=== PATIENT | female | born 1975 | race Caucasian/White ===

== ENCOUNTER 2021-10-26 13:22 | Outpatient (CLI) | payer BC, SELFPAY ==
--- NOTE | 2021-10-26 10:14 | DI.RAD_ITS ---
Exam(s) XR KNEE LT 4V AP,LAT,HILDA,PAT EXAM: XR KNEE LT 4V AP,LAT,HILDA,PAT CLINICAL HISTORY: L knee pain. TECHNIQUE: 2D digital imaging was performed. Four views. COMPARISON: No exams were available for comparison FINDINGS: BONES: No acute fracture is present. No bony destructive lesion is seen. Minimal spurring medial tib ial plateau. Minimal spurring articular aspect of patella. JOINTS: The knee is normally aligned. No joint effusion is seen. Minimal medial femoral tibial joint space narrowing. SOFT TISSUE: Normal. IMPRESSION: Mild degenerative changes. DATA REPOSITORY: RADIATION DOSE DELIVERED:
== END 2021-10-26 13:23 | disposition home or self-care (01) ==
LOC: DIORS 13:22
PROVIDERS: PCP Physician Assistant Medical; Referring Provider Physician Assistant Medical; Visit Provider Physician Assistant
DX: M25.562 Pain in left knee (principal); M17.12 Unilateral primary osteoarthritis, left knee
CPT/HCPCS: 73564

== ENCOUNTER → 2021-11-09 00:44 | Outpatient (CLI) | payer BC, SELFPAY ==
--- OUTSIDE RECORDS SUMMARY | 2021-11-09 00:46 | XMS_ITS | Encounter Summary ---
:1975 Author Organization [facility] Address [address] [place] [address] Care Team Providers Name Role Phone HORTENSIA Diaz Primary Care Provider Reason for Referral Radiology Services (Routine/Next Available) - Authorization Not Required Specialty Diagnoses / Procedures Referred By Contact Refer red To Contact Diagnoses Arthralgia of both hands Domenica Dyer APRN CV Procedures XR R[facility]ATOID HANDS [address] [facility] [address] [place] [address] Referral ID Status Reason Start Expiration Visits Visits Date Date Requested Authorized [id number] Authorization Not 10/02/2021 1 1 Required Reason for Visit Radiology Services (Routine/Next Available) - Authorization Not Required Specialty Diagnoses / Procedures Referred By Contact Refer red To Contact Diagnoses Arthralgia of both hands Domenica Dyer APRN CV Procedures XR R[facility]UMATOID HANDS [address] [facility] [address] [place] [address] Referral ID Status Reason Start Expiration Visits Visits Date Date Requested Authorized [id number] Authorization Not 10/02/2021 1 1 Required Encounter Details Date Type Department Care Team Description 11/04/2021 Hospital Encounter [facility] - A rthralgia of both [facility] Xray hands [address] [place] [address] Social History Tobacco Use Types Packs/Day Years Used Date Never Smoker Smokeless Tobacco: Never Used Alcohol Use Standard Drinks/Week Comments Yes 1 (1 standard drink = 0.6 oz pure alcoho l) Sex Assigned at Date Recorded Not on file documented as of this encounter Functional Status Functional Status Response Date of Assessment Because of a physical, mental, or emotional condition, No 06/23/2016 does this person have difficulty doing errands alone such as visiting a doctor's office or shopping? Cognitive Status Response Date of Assessment Because of a physical, mental, or emotional condition, No 06/23/2016 does this person have serious difficulty concentrating, remembering, or making decisions? documented as of this encounter Medications at Time of Discharge Medication Sig Dispensed Refills Start Date End Date benzonatate (TESSALON) Take 1-2 caps by 30 capsule 0 021 100 mg mouth three times capsuleIndications: Cough daily as needed for cough cholecalciferol, vitamin Take 50,000 Units by 0 D3, (VITAMIN D3 ORAL) mouth once a week. escitalopram oxalate Take 40 mg by mouth 0 (LEXAPRO) 20 mg tablet daily. guaiFENesin-codeine Take 5-10ml by mouth 100 mL 0 2020 (GUAIFENESIN AC) 100-10 at bedtime as needed mg/5 mL for cough liquidIndications: Cough lisdexamfetamine Take 40 mg by mouth 0 dimesylate daily. (LISDEXAMFETAMINE ORAL) MAGNESIUM ORAL Take by mouth daily. 0 meloxicam (MOBIC) 15 mg Take 1 Tablet by 90 Tablet 2 2021 tabletIndications: mouth daily. Arthralgia of both hands UNABLE TO FIND Med Name: 0 Methylfolate documented as of this encounter Discharge Disposition Disposition Code Departure Means Destination Home or Self Care documented in this encounter Plan of Treatment Upcoming Encounters Date Type Specialty Care Team Description 11/11/2021 Office Visit Rheumatology Frederic Dyer, ASSOCIATE PROFESSOR OF COMMUNICATION [address] [facility] [place] [address] 12/25/2021 Appointment Radiology documented as of this encounter Procedures Procedure Name Priority Date/Time Associated Comments Diagnosis XR RHEUMATOID HANDS Routine 11/04/2021 16:30 Arthralgia of bot h Results for this EDT hands procedure are i n the results section. documented in this encounter Results XR RHEUMATOID HANDS (11/04/2021 16:30 EDT) Anatomical Region Laterality Modality Upper Extremities Computed Radiography Specimen Impressions [facility] - 11/04/2021 17:02 EDT Unremarkable radiographic appearance of the right hand. PROCEDURE INFORMATION: Exam: XR Left Hand Exam date and time: 11/04/2021 4:24 PM Age: 46 years old Clinical indication: Pain; Hand; Bilater al; Additional info: Worsening hand pain and swelling TECHNIQUE: Imaging protocol: XR Left hand. Views: 1 or 2 views. COMPARISON: CR EXP CARE RHEUMATOID BILAT HAND 12/18/19 1:39 PM FINDINGS: Bones/joints: No significant bony or art icular abnormality is identified. Soft tissues: The soft tissues appear gr ossly unremarkable. IMPRESSION: Unremarkable radiographic appearance of the left hand. THIS DOCUMENT HAS BEEN ELECTRONICALLY SI GNED BY TERRELL CONDE MD FOR ANY QUESTIONS OR CONCERNS REGARDING THIS REPORT PLEASE CALL [facility] AT [phone] Narrative [facility] - 11/04/2021 17:02 EDT PROCEDURE INFORMATION: Exam: XR Right Hand Exam date and time: 11/04/2021 4:24 PM Age: 46 years old Clinical indication: Pain; Hand; Bilater al; Additional info: Worsening hand pain and swelling TECHNIQUE: Imaging protocol: XR Right hand. Views: 1 or 2 views. COMPARISON: CR EXP CARE RHEUMATOID BILAT HAND 12/18/19 1:39 PM FINDINGS: Bones/joints: No significant bony or art icular abnormality is identified. Soft tissues: The soft tissues appear gr ossly unremarkable. Procedure Note Terrell Conde MD - 11/04/2021 PROCEDURE INFORMATION: Exam: XR Right Hand Exam date and time: 11/04/2021 4:24 PM Age: 46 years old Clinical indication: Pain; Hand; Bilater al; Additional info: Worsening hand pain and swelling TECHNIQUE: Imaging protocol: XR Right hand. Views: 1 or 2 views. COMPARISON: CR EXP CARE RHEUMATOID BILAT HAND 12/18/19 1:39 PM FINDINGS: Bones/joints: No significant bony or art icular abnormality is identified. Soft tissues: The soft tissues appear gr ossly unremarkable. IMPRESSION Unremarkable radiographic appearance of the right hand. PROCEDURE INFORMATION: Exam: XR Left Hand Exam date and time: 11/04/2021 4:24 PM Age: 46 years old Clinical indication: Pain; Hand; Bilater al; Additional info: Worsening hand pain and swelling TECHNIQUE: Imaging protocol: XR Left hand. Views: 1 or 2 views. COMPARISON: CR EXP CARE RHEUMATOID BILAT HAND 12/18/19 1:39 PM FINDINGS: Bones/joints: No significant bony or art icular abnormality is identified. Soft tissues: The soft tissues appear gr ossly unremarkable. IMPRESSION: Unremarkable radiographic appearance of the left hand. THIS DOCUMENT HAS BEEN ELECTRONICALLY SI GNED BY TERRELL CONDE MD FOR ANY QUESTIONS OR CONCERNS REGARDING THIS REPORT PLEASE CALL [facility] AT [phone] Performing Organization Address City/State/ZIP Code Phon e Number [facility] documented in this encounter Visit Diagnoses Diagnosis Arthralgia of both hands documented in this encounter Care Teams Quality Assurance Relationship Specialty Start Date End Date Rae Diaz PA PCP - General 06/23/16 [address] [place] [address] documented as of this encounter
--- OUTSIDE RECORDS SUMMARY | 2021-11-09 00:46 | XMS_ITS | Encounter Summary ---
:1975 Author Organization [facility] Address [address] [place] [address] Care Team Providers Name Role Phone HORTENSIA Diaz Primary Care Provider Reason for Visit Reason Onset Date Comments Results 03/14/2021 Encounter Details Date Type Department Care Team Description 03/14/2021 Telephone [facility] Mey Yarbrough PA-C Results [facility] - [address] [address] [address] [place] [address] (Wo rk) Social History Tobacco Use Types Packs/Day Years [...] making decisions? documented as of this encounter Miscellaneous Notes Telephone Encounter - Mey Yarbrough PA-C - 03/14/2021 0971 EDT Pt exposed to covid positive individual documented in this encounter Plan of Treatment Upcoming Encounters Date Type Specialty Care Team Description 11/11/2021 Office Visit Rheumatology Frederic Dyer, CHINESE LANGUAGE PROFESSOR [address] [facility] [address] [place] [address] 12/25/2021 Appointment Radiology Scheduled Orders Name Type Priority Associated Diagnoses Order S chedule COVID-19 TESTING Microbiology Routine Exposure to Covid-19 Exp ected: 03/14/2021 Virus (Approximate), Expires: 2021 documented as of this encounter Visit Diagnoses Diagnosis Exposure to COVID-19 virus - Primary documented in this encounter Care Teams Marble Carver Relationship Specialty Start Date End Date Rae Diaz PA PCP - General 06/23/16 [address] [place] [address] documented as of this encounter
--- OUTSIDE RECORDS SUMMARY | 2021-11-09 00:46 | XMS_ITS | Encounter Summary ---
:1975 Author Organization [facility] Address [address] [place] [address] Care Team Providers Name Role Phone HORTENSIA Diaz Primary Care Provider Reason for Visit Reason Onset Date Comments Results 02/02/2020 Encounter Details Date Type Department Care Team Description 02/02/2020 Telephone [facility] Mey Yarbrough PA-C Results [address] [place] [address] [phone] [place] [address] (Wo rk) Social History Tobacco Use Types [...] Telephone Encounter - Mey Yarbrough PA-C - 02/02/2020 1143 EDT labs documented in this encounter Plan of Treatment Upcoming Encounters Date Type Specialty Care Team Description 11/11/2021 Office Visit Rheumatology Frederic Dyer, STEWARD/STEWARDESS DINING ROOM [address] [facility] [address] [place] [address] 12/25/2021 Appointment Radiology Scheduled Orders Name Type Priority Associated Diagnoses Order S chedule CHLAMYDIA/N. Microbiology Routine Laboratory test Ordered: GONORRHOEAE AMPLIFIED RNA documented as of this encounter Visit Diagnoses Diagnosis Laboratory test - Primary Laboratory examination, unspecified documented in this encounter Care Teams Transaction Manager Relationship Specialty Start Date End Date Rae Diaz PA PCP - General 06/23/16 [address] [place] [address] documented as of this encounter
--- OUTSIDE RECORDS SUMMARY | 2021-11-09 00:46 | XMS_ITS | Encounter Summary ---
:1975 Author Organization [facility] Address [address] [place] [address] Care Team Providers Name Role Phone HORTENSIA Diaz Primary Care Provider Reason for Referral Laboratory Services (Routine) - New Request Specialty Diagnoses / Procedures Referred By Contact Refer red To Contact Infectious Disease Diagnoses Cough Ramonita Bateman [facility] Mobile Procedures MISCELLANEOUS TEST, NON BOUBACAR GARCIA Testing [address] [address] [address] [place] [address] Referral ID Status Reason Start Date Expiration Date Visits V isits Requested Authorized [id number] New Request 09/26/2019 1 1 Reason for Visit Reason Onset Date Comments Acute Illness 09/26/2019 Labs Only 09/26/2019 Test appt scheduled for 1:30pm, 09/25 Encounter Details Date Type Department Care Team Description 09/26/2019 Telephone [facility] [place], Dw[place] I ll[facility]; Labs [facility] Ramonita Burnett PA-C Only (Test appt [place] [address] scheduled for 1:30pm, [address] [facility] 09/25) [place] [address] Road [phone] [place] [address] Social History Tobacco Use Types Packs/Day Years Used Date Never Smoker Sex Assigned at Date Recorded Not on [...] this encounter Miscellaneous Notes Telephone Encounter - Ramonita Bateman PA-C - 10/01/2019 1124 EDT Patient called and notified of negative COVID results, she has no further questions. elephone Encounter - Gretchen Hubbard PA-C - 09/30/2019 1707 EDT Pt called looking for results which are not yet back. 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 Testing performed on 09/25, looks like the order was officially signed on 09/28? Is there any way to find out more about the status of her test? elephone Encounter - Rachel Blanco - 09/26/2019 1559 EDT [facility] notified. Telephone Encounter - Bill Redmond - 09/26/2019 0849 EDT C-19 screening recommended by provider. Routed for testing ordering. Vehicle: Stretchr Placement Secretary Color: Dark Blue Cell #: [phone] Spoke to patient and verbally gave instructions for Testing Facility. Patient is instructed to be there at 1:30pm sharp. Patient is aware. elephone Encounter - Ramonita Bateman PA-C - 09/26/2019 0831 EDT Please call patient to schedule COVID testing today. 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 Please call her at [phone] documented in this encounter Plan of Treatment Upcoming Encounters Date Type Specialty Care Team Description 11/11/2021 Office Visit Rheumatology Frederic Dyer , DIRECTOR OF PERSONNEL [address] [facility] [address] [place] [address] 12/25/2021 Appointment Radiology documented as of this encounter Visit Diagnoses Diagnosis Cough - Primary documented in this encounter Orders Lab Orders Without Results Count Last Ordered Date Fir st Ordered Date MISCELLANEOUS TEST, NON HAMLIN 1 09/26/2019 documented in this encounter Care Teams Scroll Machine Operator Relationship Specialty Start Date End Date Rae Diaz PA PCP - General 06/23/16 [address] [place] [address] documented as of this encounter
--- OUTSIDE RECORDS SUMMARY | 2021-11-09 00:46 | XMS_ITS | Encounter Summary ---
:1975 Author Organization [facility] Address [address] [place] [address] Care Team Providers Name Role Phone HORTENSIA Diaz Primary Care Provider Encounter Details Date Type Department Care Team Description 03/14/2021 Results Only [facility] Unknow n, Provider, Lab - [facility] [address] [place] [address] [place] [address] Social History Tobacco Use Types Packs/Day Years [...] making decisions? documented as of this encounter Plan of Treatment Upcoming Encounters Date Type Specialty Care Team Description 11/11/2021 Office Visit Rheumatology Frederic Dyer, PEN TESTER [address] [facility] [address] [place] [address] 12/25/2021 Appointment Radiology documented as of this encounter Procedures Procedure Name Priority Date/Time Associated Diagnosis Comme nts COVID-19 TESTING Routine 03/14/2021 9:28 EDT Res ults for this procedure are i n the results section. documented in this encounter Results COVID-19 TESTING (03/14/2021 9:28 EDT) COVID-19 rt-PCR Not Detected [facility] Result Comment: [facility] This assay is designed to detect the RNA of SARS-CoV-2 using nucleic acid amplification. ??A Not Detected result do es not preclude the possibility of SARS-CoV-2 infection since the adequacy of sample collection and/or low viral burden may result in the presence of viral nucleic acids below th e analytical sensitivity of this test method. ??Test res ults should not be used as the sole basis for treatment or other management decisions and must be used with other clini mara, epidemiological and laboratory data in making the diag nosis. This test has not been FDA cleared or approved. ??This test has been authorized by FDA under an EUA for use by authorized laboratories. ??This test has been authoriz ed only for detection of nucleic acid from 2019-nCoV, not for any other viruses or pathogens. ??This test is only author ized for the duration of the declaration that circumstances exist justifying the authorization of emergency use of in vi tro diagnostic tests for detection and / or diagnosis of 2019-nCoV under section 564(b) (1) of Act, 21 U.S.C 360bbb-3(b)(1) unless the authorization is terminated or revoked sooner. Performed on the [employer] GeneXpert Instrument at [facility] [address] Specimen Performing Organization Address City/State/ZIP Code Phon e Number [facility] [address] [place] [address] documented in this encounter Visit Diagnoses Not on filedocumented in this encounter Care Teams Environmental Services Floor Tech Relationship Specialty Start Date End Date Rae Diaz PA PCP - General 06/23/16 [address] [place] [address] documented as of this encounter
--- OUTSIDE RECORDS SUMMARY | 2021-11-09 00:46 | XMS_ITS | Encounter Summary ---
:1975 Author Organization [facility] Address [address] [place] [address] Care Team Providers Name Role Phone HORTENSIA Diaz Primary Care Provider Reason for Visit Reason Comments New Patient Visit Hand and elbow pain. Hand pa in has been going on for at least 2-3 years. Does not think that h er hands swell. They are painful and she does have some numbness and tingling more recently. Both elbows have been bothering h er for at least the last year. Encounter Details Date Type Department Care Team Description 12/26/[address] [facility] - Anai Dyer of both [facility] Rheumatology CHELSI Metzger hands (Primary Dx) [address] [place] [address] [address] [place] [id number] Social History Tobacco Use Types Packs/Day Years Used Date Never Smoker Smokeless Tobacco: Never Used Alcohol Use Standard Drinks/Week Comments Yes 1 (1 standard drink = 0.6 oz pure alcoho l) Sex Assigned at Date Recorded Not on file documented as of this encounter Last Filed Vital Signs Vital Sign Reading Time Taken Comments Blood Pressure 118/74 12/26/2019 0853 EDT Pulse - - Temperature - - Respiratory Rate - - Oxygen Saturation - - Inhaled Oxygen Concentration - - Weight 72.6 kg (160 lb) 12/26/2019 0853 EDT Height 162.6 cm (5' 4) 12/26/2019 0853 EDT Body Mass Index 27.46 12/26/2019 0853 EDT documented in this encounter Functional Status Functional Status Response [...] making decisions? documented as of this encounter Ordered Prescriptions Prescription Sig Dispensed Refills Start Date End Date diclofenac (VOLTAREN) 75 Take 1 Tab by mouth 40 Tab 1 02/19/2020 mg EC tabletIndications: 2 times daily. Arthralgia of both hands documented in this encounter Progress Notes Domenica Dyer APRN - 12/26/2019 0845 EDT [facility] Rheumatology Chief Complaint Patient presents with ??? New Patient Visit Hand and elbow pain. Hand pain has been going on for at least 2-3 years. Does not think that her hands swell. They are painful and she does have some numbness and tingling more recently. Both elbowshave been bothering her for at least the last year. HPI: 44-year-old woman here today for evaluation of primarily bilateral joint pain of her hands. Endorses that joint stiffenss in both hands comes and goes. Feels as though it progressed during the [id number]. 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 Notes mornings are worse in regards to pain. Also reports some painful numbness and tingling primarily of the long fingers. Other symptoms include elbow soreness both medially and laterally. Symptoms seem to improve throughout the day. Also notes some low back pain lately. Denies leg or foot paresthesias. Intermittent pain of her right great toe in the MTP area. History of left corneal abrasion about 15 years ago which healed and then flared again. Last winter, also noted onset of left hand palmar thickening which was symptomatic with activities such as plank type exercises. Longstanding eczema on her face but no personal or family history of psoriasis. Denies any GI complaints. Has been doing some dietary changes and eliminating sugar and wheat with some general improvement insymptoms. Recent labs on 12/05/19 include CRP, CMP, Lyme, DEVON, RF and CCP all negative or WNL Imaging of hands on 12/18/19 at [facility] and available for review. Current Outpatient Medications: cholecalciferol, vitamin D3, (VITAMIN D3 ORAL) diclofenac (VOLTAREN) 75 mg EC tablet escitalopram oxalate (LEXAPRO) 20 mg tablet lisdexamfetamine (VYVANSE) 70 mg capsule MAGNESIUM ORAL traZODone (DESYREL) 50 mg tablet UNABLE TO FIND No current facility-administered medications for this visit. Allergies include: Patient has no known allergies. Past Medical History: Diagnosis Date ??? ADHD ??? Eczema ??? Hypercholesteremia Family History Problem Relation Age of Onset ??? Blindness Neg Hx ??? Cataract Neg Hx ??? Glaucoma Neg Hx ??? Macular Degeneration Neg Hx Social History: Social History Tobacco Use ??? Smoking status: Never Smoker ??? Smokeless tobacco: Never Used Substance Use Topics ??? Alcohol use: Yes Alcohol/week: 1.0 standard drinks Types: 1 Standard drinks or equivalent per week ??? 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 Single mother of 4 children Review of Systems: 13 point ROS was done with the patient. See scanned document for details. Pertinent positives and negatives are noted in the HPI. Physical Examination: BP 118/74 (BP Cuff Sizes: Adult, regular) Ht 162.6 cm (64) Wt 72.6 kg (160 lb) BMI 27.46 kg/m?? EYES: Conjunctivae not injected,PERRLA ENT: No oral ulcers, dentition is good, moist mucous membranes NECK: Normal extension and lateral rotation without pain. NO lymphadenopathy. CHEST: Clear to auscultation bilaterally. CARDIOVASCULAR: Regular rate and rhythm. No murmur. No peripheral edema. ABDOMEN: Soft, non tender. No hepatosplenomegaly. SKIN: No rash on arms, legs, trunk. No nail pitting. No dilated capillary loops in the nail beds. NEURO: Strength 5/5. Sensation intact to light touch. MUSCULOSKELETAL EXAM: Ambulates with nonantalgic gait. Normal resting posture. Well-preserved cervical spine range of motion flexion extension as well as rotation left and right. Bilateral shoulder motion well-preserved in all planes including internal rotation. Negative Trimble Lee negative Neer impingement signs. Well-preserved strength to manual muscle testing of the large and small muscle groups of the shoulders. Bilateral elbow range of motion well-preserved in flexion extension as well as forearm pronation supination. No appreciable warmth, swelling or erythema about the shoulders. Mild tenderness to palpation medial epicondyle both right and left. Negative Tinel's at the elbows. No appreciable tenosynovitis of the dorsal aspect of the wrists. She is able to pull her fingers to her palms but with some tightness particularly of the MCP and PIP joints. No appreciable erythemaor warmth. She does have some palpable tenosynovitis of the left palmar aspect in line with the long finger. No visible triggering on exam today. Some palpable inflammation with repeated flexion extension of that digit. No nail pitting or changes. No appreciable thoracic tenderness. Some mild lumbosacral tenderness as well as minimal SI joint pain with palpation. Negative straight leg raise for radiculopathy. Bilateral hip motion is well-preserved both while supine and seated in flexion, IR/ER. No instability of the knee joints with ligamentous stress testing. No erythema, warmth or effusions. No tenderness of the subtalar joints bilaterally. Negative squeeze test of the metatarsal heads. Able to demonstrate toe walk and heel walk without difficulty. Labs: Lab Requisition on 12/05/2019 Component Date Value ??? DEVON Interpretation 12/05/2019 Negative Office Visit on 12/05/2019 Component Date Value ??? RHEUMATOID FACTOR SCREEN* 12/05/2019 NEG ? ? Cyclic Citrullinated Pep* 12/05/2019 <15.6 Results Only on 12/03/2019 Component Date Value ??? TEST CANCELLED - [facility] 12/03/2019 SEE NOTE Telephone on 12/01/2019 Component Date Value ? ? C-Reactive Protein 12/05/2019 <5.0 ??? DEVON Interpretation 12/05/2019 Negative ??? Triglyceride 12/05/2019 78 ??? Cholesterol 12/05/2019 190 ??? Chol/HDL Ratio 12/05/2019 3.9 ??? FASTING? - [facility] 12/05/2019 Unknown ??? HDL 12/05/2019 48 ??? LDL CHOLESTEROL - [facility] 12/05/2019 126* ??? Non HDL Cholesterol 12/05/2019 142 ??? ALBUMIN - [facility] 12/05/2019 4.4 ??? ALKALINE PHOSPHATASE - C* 12/05/2019 40 ??? BILIRUBIN TOTAL - [facility] 12/05/2019 0.9 ??? BUN - [facility] 12/05/2019 11 ??? CALCIUM - [facility] 12/05/2019 9.6 ??? Chloride 12/05/2019 100 ??? CO2 Total 12/05/2019 29 ??? CREATININE - [facility] 12/05/2019 0.72 ? ? eGFR 12/05/2019 >60 ??? Anion Gap 12/05/2019 7 ??? GLUCOSE - [facility] 12/05/2019 102* ??? Potassium 12/05/2019 4.0 ??? Sodium 12/05/2019 136 ??? TOTAL PROTEIN - [facility] 12/05/2019 7.0 ??? SGOT/AST - [facility] 12/05/2019 24 ??? SGPT/ALT - [facility] 12/05/2019 15 ??? LYME AB IGG - [facility] 12/05/2019 NEGATIVE ??? Lyme Ab 12/05/2019 NEGATIVE Results Only on 09/26/2019 Component Date Value ??? INFLUENZA A PCR - [facility] 09/26/2019 Negative ??? INFLUENZA B PCR - [facility] 09/26/2019 Negative ??? RSV PCR - [facility] 09/26/2019 Negative ??? COVID-19 - [facility] 09/26/2019 SEE NOTE Results Only on 08/22/2019 Component Date Value ??? Triglyceride 08/22/2019 64 ??? Cholesterol 08/22/2019 227* ??? Chol/HDL Ratio 08/22/2019 3.4 ??? FASTING? - [facility] 08/22/2019 Yes ??? HDL 08/22/2019 65* ??? LDL CHOLESTEROL - [facility] 08/22/2019 149* ??? Non HDL Cholesterol 08/22/2019 162 ??? HIV 1/2 AB, P24 AG - [facility] 08/22/2019 Negative ??? GGT 08/22/2019 14 Results Only on 08/22/2019 Component Date Value ??? ALBUMIN - [facility] 08/22/2019 4.5 ??? ALKALINE PHOSPHATASE - C* 08/22/2019 46 ??? BILIRUBIN TOTAL - [facility] 08/22/2019 0.8 ??? BUN - [facility] 08/22/2019 13 ??? CALCIUM - [facility] 08/22/2019 9.1 ??? Chloride 08/22/2019 101 ??? CO2 Total 08/22/2019 27 ??? Creatinine 08/22/2019 0.61 ? ? eGFR 08/22/2019 >60 ??? Anion Gap 08/22/2019 9 ??? GLUCOSE - [facility] 08/22/2019 81 ??? Potassium 08/22/2019 4.4 ??? Sodium 08/22/2019 137 ??? TOTAL PROTEIN - [facility] 08/22/2019 7.5 ??? SGOT/AST - [facility] 08/22/2019 56* ??? SGPT/ALT - [facility] 08/22/2019 64* Results Only on 07/20/2019 Component Date Value ??? TRICHOMONAS PCR, POCT - * 07/20/2019 NOT DETECTED ??? Human Papillomavirus (HP* 07/20/2019 NEG Diagnosis / Assessment: Problem List Items Addressed This Visit Musculoskeletal Arthralgia - Primary Relevant Medications diclofenac (VOLTAREN) 75 mg EC tablet Recommendations/Evaluation: X-rays of hands independently reviewed with well- preserved joint space.Some early mild changes of the thumb [facility] joints. Serology and labs negative for obvious rheumatologic etiology. Recommend trial of scheduled NSAID for the next 2 to 4 weeks for symptom management. Continue with dietary changes as well. Follow-up in a couple of months for reevaluation and to reassess both her hand and back pain. Activities to tolerance. Encouraged forearm stretches for prevention of epicondylar symptoms. If triggering or pain worsens of the left long finger, can consider corticosteroid injection for symptom management. ABDULKADIR Moore 01/01/2020 8:25 documented in this encounter Plan of Treatment Upcoming Encounters Date Type Specialty Care Team Description 11/11/2021 Office Visit Rheumatology Frederic Dyer APRN [address] [facility] [address] [place] [phone] 12/25/2021 Appointment Radiology documented as of this encounter Visit Diagnoses Diagnosis Arthralgia of both hands - Primary documented in this encounter Historical Medications This list may reflect changes made after this encounter. Medication Sig Dispensed Refills Start Date End Date UNABLE TO FIND Med Name: 0 Methylfolate MAGNESIUM ORAL Take by mouth daily. 0 cholecalciferol, vitamin Take 50,000 Units by 0 D3, (VITAMIN D3 ORAL) mouth once a week. escitalopram oxalate Take 40 mg by mouth 0 (LEXAPRO) 20 mg tablet daily. traZODone (DESYREL) 50 mg Take 50 mg by mouth 0 07/07/2020 tablet as needed for Sleep. lisdexamfetamine Take 60 mg by mouth 0 11/03/2020 (VYVANSE) 70 mg capsule daily. added in this encounter Care Teams Mooner Relationship Specialty Start Date End Date Rae Diaz PA PCP - General 06/23/[address] [place] [id number] documented as of this encounter
--- OUTSIDE RECORDS SUMMARY | 2021-11-09 00:46 | XMS_ITS | Encounter Summary ---
:1975 Author Organization [facility] Address [address] [place] [address] Care Team Providers Name Role Phone HORTENSIA Diaz Primary Care Provider Reason for Visit Reason Onset Date Comments Results 09/30/2019 Encounter Details Date Type Department Care Team Description 09/30/2019 Telephone [facility] Nichole Salazar NP Results [facility] - [address] [place] [address] [address] [place] [address] (Wo rk) Social History Tobacco Use Types [...] this encounter Miscellaneous Notes Telephone Encounter - Nichole Salazar APRN - 09/30/2019 1230 EDT Patient called requesting results for COVID19 testing, I informed patient that this result is not yet available, we will call with results when available. Discussed follow up precautions. documented in this encounter Plan of Treatment Upcoming Encounters Date Type Specialty Care Team Description 11/11/2021 Office Visit Rheumatology Frederic Dyer, VIDEO MACHINES MECHANIC [address] [facility] [address] [place] [address] 12/25/2021 Appointment Radiology documented as of this encounter Visit Diagnoses Not on filedocumented in this encounter Care Teams Cigar Making Machine Supervisor Relationship Specialty Start Date End Date Rae Diaz PA PCP - General 06/23/[address] [place] [id number] documented as of this encounter
--- OUTSIDE RECORDS SUMMARY | 2021-11-09 00:46 | XMS_ITS | Encounter Summary ---
:1975 Author Organization [facility] Address [address] [place] [address] Care Team Providers Name Role Phone HORTENSIA Diaz Primary Care Provider Encounter Details Date Type Department Care Team Description 10/02/2021 Phlebotomy Only [facility], [facility] Arthra lgia of both hands; - [facility] Phlebotomy [facility] - Outpatient Phlebotomy Drawing [address] [place] [address] Social History Tobacco Use Types [...] Description 11/11/2021 Office Visit Rheumatology Frederic Dyer, ASSEMBLER [employer] [address] [facility] [address] [place] [address] 12/25/2021 Appointment Radiology documented as of this encounter Procedures Procedure Name Priority Date/Time Associated Comments Diagnosis CCP ANTIBODIES Routine 10/02/2021 16:27 Arthralgia of both Res ults for this EDT hands procedure are i n the results section. THYROID CASCADE Routine 10/02/2021 16:27 Arthralgia of both Re sults for this EDT hands procedure are in Malaise and fatigue the resu lts section. COMPLETE BLOOD COUNT Routine 10/02/2021 16:27 Arthralgia of rusty th Results for this AND DIFFERENTIAL EDT hands procedure a re in the results section. C REACTIVE PROTEIN Routine 10/02/2021 16:27 Arthralgia of both Results for this EDT hands procedure are i n the results section. COMPREHENSIVE Routine 10/02/2021 16:27 Arthralgia of both Resu lts for this METABOLIC PANEL (CMP) EDT hands proced ure are in the results section. documented in this encounter Results C REACTIVE PROTEIN (10/02/2021 16:27 EDT) Pathologist Sig nature C-Reactive Protein 6.1 <10.0 mg/L [facility] Specimen Blood - Venous blood (substance) Performing Organization Address City/State/ZIP Code Phon e Number [facility] [address] [place] [address] (ABNORMAL) COMPREHENSIVE METABOLIC PANEL (CMP) (10/02/2021 16:27 EDT) Pathologist [facility] Sodium 137 136 - 145 [facility] mmol/L [facility] Potassium 4.3 3.5 - 5.0 [facility] mmol/L [facility] Chloride 103 96 - 110 mmol/L [facility] CO2 Total 22 22 - 32 mmol/L [facility] Glucose 116 (H) 70 - 100 mg/dL [facility] BUN 9 (L) 10 - 26 mg/dL [facility] Creatinine 0.45 (L) 0.52 - 1.04 [facility] mg/dL [facility] eGFR 121 >60 [facility] mL/min/1.73m2 [facility] Total Protein 7.1 6.3 - 8.2 g/dL [facility] Albumin 4.1 3.4 - 4.9 g/dL [facility] Alkaline Phosphatase 64 38 - 126 U/L [facility] AST 31 15 - 46 U/L [facility] ALT 20 <35 U/L [facility] Bilirubin, Total 0.4 <1.4 mg/dL [facility] Calcium 8.5 8.5 - 10.5 [facility] mg/dL [facility] Albumin/Globulin 1.4 1.0 - 2.5 [facility] Ratio [facility] Anion Gap 12 5 - 14 [facility] Specimen Blood - Venous blood (substance) Performing Organization Address City/State/ZIP Code Phon e Number [facility] [address] [place] [address] THYROID CASCADE (10/02/2021 16:27 EDT) Pathologist Sig nature TSH 3.55 0.47 - 4.68 ??IU/mL [facility] C [facility] Specimen Blood - Venous blood (substance) Narrative [facility] - 022 18:09 EDT NOTE: The results of this assay can be falsely lowered due to the consumption of Biotin. Performing Organization Address City/[facility]/ZIP Code Phon e Number [facility] [address] [place] [address] CCP ANTIBODIES (10/02/2021 16:27 EDT) Pathologist Sig nature CCP Antibodies <2.5 <5.0 U/mL [facility] Specimen Blood - Venous blood (substance) Performing Organization Address City/[facility]/ZIP Code Phon e Number [facility] [address] [place] [address] SERVICES COMPLETE BLOOD COUNT AND DIFFERENTIAL (10/02/2021 16:27 EDT) Pathologist Sig nature WBC 6.94 4.00 - 12.40 [facility] K/cmm [facility] RBC 4.49 3.86 - 5.04 [facility] M/cmm [facility] Hemoglobin 12.6 11.6 - 15.2 [facility] gm/dL [facility] HCT 37.1 34.9 - 44.4 % [facility] MCV 83 81 - 98 fl [facility] MCH 28.1 26.7 - 33.3 pg [facility] MCHC 34.0 32.1 - 35.9 [facility] gm/dL [facility] RDW-CV 13.9 <14.7 % [facility] RDW-SD 41.6 <50.4 fl [facility] PLT 256 141 - 377 K/cmm [facility] MPV 10.4 9.5 - 12.7 fl [facility] Neutrophils 65.8 % [facility] Lymphocytes 24.6 % [facility] Monocytes 5.6 % [facility] Eosinophils 2.9 % [facility] Basophils 0.7 % [facility] Immature Grans 0.4 % [facility] Absolute Neutrophils 4.56 2.20 - 8.85 [facility] Absolute Lymphocytes 1.71 1.09 - 3.30 [facility] Absolute Monocytes 0.39 0.10 - 0.80 [facility] Absolute Eosinophils 0.20 0.03 - 0.61 [facility] Absolute Basophils 0.05 0.01 - 0.11 [facility] Absolute Immature 0.03 0.00 - 0.06 [facility] Grans [facility] Type of Differential: Auto [facility] Specimen Blood - Venous blood (substance) Performing Organization Address City/State/ZIP Code Phon e Number [facility] [address] [place] [address] documented in this encounter Visit Diagnoses Diagnosis Arthralgia of both hands Malaise and fatigue Other malaise and fatigue documented in this encounter Care Teams Presentation Designer Relationship Specialty Start Date End Date Rae Diaz PA PCP - General 06/23/16 [address] [place] [address] documented as of this encounter
--- OUTSIDE RECORDS SUMMARY | 2021-11-09 00:46 | XMS_ITS | Encounter Summary ---
:1975 Author Organization [facility] Address [address] [place] [address] Care Team Providers Name Role Phone HORTENSIA Diaz Primary Care Provider Encounter Details Date Type Department Care Team Description 10/04/2018 Historical Results Only [facility] - Rachael Diaz, [facility] Lab - Main [facility] [address] [place] [address] [place], [place] [phone] Social History Tobacco Use Types Packs/Day Years [...] Care Team Description 11/11/2021 Office Visit Rheumatology Ferderic Dyer, KINDERGARTEN AIDE [address] [facility] [address] [place] [address] 12/25/2021 Appointment Radiology documented as of this encounter Procedures Procedure Name Priority Date/Time Associated Diagnosis Comme nts LIPID PANEL POC - Routine 10/04/2018 13:51 Result s for this [facility] EDT procedure are i n the results section. documented in this encounter Results (ABNORMAL) LIPID PANEL POC - [facility] (10/04/2018 13:51 EDT) Pathologist Sig nature Triglyceride 62 0.00 - 150.00 MG/DL [facility] Cholesterol 223 (H) 0.00 - 200.00 MG/DL [facility] HDL 59 40.00 - 60.00 MG/DL [facility] Specimen Performing Organization Address City/State/ZIP Code Phon e Number [facility] [address] [place] [address] [facility] documented in this encounter Visit Diagnoses Not on filedocumented in this encounter Care Teams Wholesale Account Manager Relationship Specialty Start Date End Date Rae Diaz PA PCP - General 06/23/16 [address] [place] [address] documented as of this encounter
--- OUTSIDE RECORDS SUMMARY | 2021-11-09 00:46 | XMS_ITS | Encounter Summary ---
:1975 Author Organization [facility] Address [address] [place] [address] Care Team Providers Name Role Phone HORTENSIA Diaz Primary Care Provider Encounter Details Date Type Department Care Team Description 09/26/2019 Results Only [facility] - [facility] Mel Stockton MD Infectious Disease [address] [facility] [address] [facility] [address] [place] [address] [place] [address] (Wo rk) Social History Tobacco Use Types [...] Description 11/11/2021 Office Visit Rheumatology Frederic Dyer, DATA PROCESSING AUDITOR [address] [facility] [address] [place] [address] 12/25/2021 Appointment Radiology documented as of this encounter Procedures Procedure Name Priority Date/Time Associated Diagnosis Comme nts COVID-19 Routine 09/26/2019 13:20 Results for this EDT procedure are i n the results section. INFLUENZA A B RSV - Routine 09/26/2019 13:20 Resu lts for this [facility] EDT procedure are i n the results section. documented in this encounter Results COVID-19 (09/26/2019 13:20 EDT) COVID-19 - [facility] SEE NOTE [facility] Comment: MED CENTER LAB TESTING PERFORMED AT [facility]; Analyte ? Result 2019-nCoV ? Not detected Negative results do not preclude 2019-nCoV infection a nd should not be used as the sole basis for treatment or other patient management decisions. ??Negative results must be combined with clinical observations, patient history a nd epidemlogical information. NASOPHARYNGEAL SWAB Specimen Performing Organization Address City/[facility] Code Phon e Number [facility] [address] [place] [address] [facility] INFLUENZA A B RSV - [facility] (09/26/2019 13:20 EDT) Pathologist Sig nature INFLUENZA A PCR - [facility] Negative [facility] INFLUENZA B PCR - [facility] Negative [facility] RSV PCR [facility] Negative [facility] Specimen Performing Organization Address City/[facility] Phon e Number [facility] [address] [place] [address] [facility] documented in this encounter Visit Diagnoses Not on filedocumented in this encounter Care Teams Electronic Engineering Technician Relationship Specialty Start Date End Date Rae Diaz PA PCP - General 06/23/16 [address] [place] [address] documented as of this encounter
--- OUTSIDE RECORDS SUMMARY | 2021-11-09 00:46 | XMS_ITS | Encounter Summary ---
:1975 Author Organization [facility] Address [address] [place] [address] Care Team Providers Name Role Phone HORTENSIA Diaz Primary Care Provider Reason for Referral PT/OT/ST (Routine) - Closed Specialty Diagnoses / Procedures Referred By Contact Refer red To Contact Diagnoses Bilateral carpal tunnel syndrome Arthralgia of both hands Domenica Dyer APRN [facility] [address] [facility] [address] [facility] [place] [address] [place] [address] Phone: Fax: Referral ID Status Reason Start Date Expiration Date Visits V isits Requested Authorized [id number] Closed Specialty 11/03/2020 1 1 Services Required Question Answer Reason for Request: Fabricate bilateral carpal t unnel splints Comments Off the shelf carpal tunnel splints not fitting well Reason for Visit Reason Comments Follow-up Pt reports ongoing hand pain .No difference from last time.Pain level varies form day to day. Encounter Details Date Type Department Care Team Description 11/03/2020 Office Visit [facility] [place] carpal tunnel syndrome (Primary Dx); [facility] Rheumatology CHELSI Metzger Arthralgia of both hands [address] [place] [address] [address] [place] [address] Social History Tobacco Use Types Packs/Day Years Used Date Never Smoker Smokeless Tobacco: Never Used Alcohol Use Standard Drinks/Week Comments Yes 1 (1 standard drink = 0.6 oz pure alcoho l) Sex Assigned at Date Recorded Not on file documented as of this encounter Last Filed Vital Signs Vital Sign Reading Time Taken Comments Blood Pressure 136/86 11/03/2020 0829 EDT Pulse - - Temperature 36.4 ??C (97.5 ??F) 11/03/2020 0829 EDT Respiratory Rate - - Oxygen Saturation - - Inhaled Oxygen Concentration - - Weight 77.1 kg (170 lb) 11/03/2020 0829 EDT Height - - Body Mass Index 29.18 02/19/2020 1002 EDT documented in this encounter Functional Status [...] making decisions? documented as of this encounter Patient Instructions Patient InstructionsSylvDomenica rivero APRN - 11/03/2020 8:15 EDT Schedule carpal tunnel splint fabrication Trial of wearing splints routinely for 2-3 weeks nightly Meloxicam daily as needed - refill sent to [facility] pharmacy documented in this encounter Ordered Prescriptions Prescription Sig Dispensed Refills Start Date End Date meloxicam (MOBIC) 15 mg Take 1 Tab by mouth 90 Tab 2 10/02/2021 tabletIndications: daily. Arthralgia of both hands documented in this encounter Progress Notes Domenica Dyer APRN - 11/03/2020 0815 [facility]T [facility] Rheumatology Chief Complaint Patient presents with ??? Follow-up Pt reports ongoing hand pain.No difference from last time.Pain level varies form day to day. HPI: Known patient initially evaluated on 12/26/19 for??bilateral joint pain of her hands. ?? Also reports some painful numbness and tingling primarily of the long fingers. History of??left??corneal abrasion about 15 years ago which healed and then flared again. Longstanding eczema on her face but no personal or family history of psoriasis. ?? No GI complaints. ?? Previous treatment with oral diclofenac with only initial response/improvement x 3 days. Took low dose prednisone with some modest improvement in hand pain during use. No lasting effects. ?? Labs on 12/05/19 include CRP, CMP, Lyme, DEVON, RF and CCP all negative or WNL ?? Imaging of hands on 12/18/19 at [facility] and available for review. ?? INTERVAL HISTORY: Took meloxicam with noted comparable improvement to diclofenac. Ran out of that prescription and is back to taking diclofenac in the mornings. Hands are stiff and tight mostly in the mornings. Symptoms seem erratic. Continues to have symptoms of numbness and tingling primarily of the thumb side of her hand but occasionally involving the ring and long finger. Has some carpal tunnel splints but they do not really fit properly and is not using them regularly. Denies any painful triggering of any digits. Current Outpatient Medications Medication ??? cholecalciferol, vitamin D3, (VITAMIN D3 ORAL) ??? escitalopram oxalate (LEXAPRO) 20 mg tablet ??? lisdexamfetamine (VYVANSE) 70 mg capsule ??? MAGNESIUM ORAL ??? meloxicam (MOBIC) 15 mg tablet ??? UNABLE TO FIND No current facility-administered medications [...] week ??? Drug use: Not on file Review of Systems: Review of Systems Constitutional: Positive for malaise/fatigue. Respiratory: Negative for shortness of breath. Cardiovascular: Negative for palpitations. Gastrointestinal: Negative for nausea and vomiting. Musculoskeletal: Positive for joint pain. Skin: Positive for rash. Physical Examination: Temp 36.4 ??C (97.5 ??F) Wt 77.1 kg (170 lb) BMI 29.18 kg/m?? EYES: Conjunctivae not injected ENT:??Oral and nasal mucosa not examined. ??Protective mask in place secondary to COVID-19 precautions. NECK:??Supple. ??Normal resting posture. ?? CHEST:??Unlabored breathing CARDIOVASCULAR: No peripheral edema. SKIN: No rash on??exposed areas of??arms.?No??fingernail pitting. ?? MUSCULOSKELETAL EXAM:??Focused exam of hands and wrists with some mild fullness about the right palmar aspect. ??Left ring finger with palpable triggering but no visible or painful triggering of that digit. No appreciable atrophy of the thenar, hypothenar intrinsic musculature bilaterally. Generalized fullness of the digits but no dactylitis or synovitis overlying the MCP joints dorsally. Labs: No visits with results within 3 Month(s) from this visit. Latest known visit with results is: Results Only on 07/18/2020 Component Date Value ??? TSH 07/18/2020 1.38 Diagnosis / Assessment: Problem List Items Addressed This Visit Musculoskeletal Arthralgia Relevant Medications meloxicam (MOBIC) 15 mg tablet Other Relevant Orders AMB CONS/FOLLOW UP OCCUPATIONAL THERAPY Other Visit Diagnoses Bilateral carpal tunnel syndrome - Primary Relevant Orders AMB CONS/FOLLOW UP OCCUPATIONAL THERAPY Persistent hand pain with modest response to scheduled NSAID Symptoms of probable median nerve irritation, bilaterally Recommendations/Evaluation: Recommend OT referral for fabrication of custom fit carpal tunnel splints. Refill of meloxicam provided for 90-day supply. Discussed other treatment options including a different NSAID versus trial of colchicine versus hydroxychloroquine for prednisone responsive hand pain. Patient would like to trial some dietary changes including decreasing sugar and other lifestyle changes for the next 3 months. Follow-up at that time for reevaluation Domenica Dyer APRN 11/03/2020 8:31 documented in this encounter Plan of Treatment Upcoming Encounters Date Type Specialty Care Team Description 11/11/2021 Office Visit Rheumatology Frederic Dyer APRN [address] [facility] [address] [place] [address] 12/25/2021 Appointment Radiology Scheduled Referrals Name Type Priority Associated Order Schedule Diagnoses AMB CONS/FOLLOW UP Outpatient Referral Routine Bilateral carpa l Ordered: OCCUPATIONAL THERAPY tunnel synd dewey 11/03/2020 Arthralgia of both hands documented as of this encounter Visit Diagnoses Diagnosis Bilateral carpal tunnel syndrome - Prima ry Carpal tunnel syndrome Arthralgia of both hands documented in this encounter Discontinued Medications Medication Sig Discontinue Reason Start Date End Date lisdexamfetamine (VYVANSE) Take 60 mg by Alternate therapy 11/03/2020 70 mg capsule mouth daily. meloxicam (MOBIC) 15 mg Take 1 Tab by 08/04/2020 tabletIndications: mouth daily. Arthralgia of both hands documented as of this encounter Historical Medications This list may reflect changes made after this encounter. Medication Sig Dispensed Refills Start Date End Date lisdexamfetamine dimesylate Take 40 mg by 0 (LISDEXAMFETAMINE ORAL) mouth daily. added in this encounter Care Teams A And P Mechanic Relationship Specialty Start Date End Date Rae Diaz PA PCP - General 06/23/16 [address] [place] [address] documented as of this encounter
--- OUTSIDE RECORDS SUMMARY | 2021-11-09 00:46 | XMS_ITS | Encounter Summary ---
:1975 Author Organization [facility] Address [address] [place] [address] Care Team Providers Name Role Phone HORTENSIA Diaz Primary Care Provider Encounter Details Date Type Department Care Team Description 08/22/2019 Results Only [facility] Rae Diaz PA Lab - Main [place] [address] [facility] [address] [place] [address] [place] [address] [phone] Social History Tobacco Use Types Packs/Day Years [...] Description 11/11/2021 Office Visit Rheumatology Frederic Dyer ah, HARP REPAIRER [address] [facility] [place] [address] 12/25/2021 Appointment Radiology documented as of this encounter Procedures Procedure Name Priority Date/Time Associated Diagnosis Comme nts HIV 1/2 AB, P24 AG Routine 08/22/2019 10:40 Resul ts for [facility] EST procedure are i n the results section. GGT Routine 08/22/2019 10:40 Results for this EST procedure are i n the results section. LIPID PROFILE Routine 08/22/2019 10:40 Results fo r this (INCLUDES EST procedure are i n CHOLESTEROL, the results TRIGLYCERIDES, HDL, section. LDL) documented in this encounter Results GGT (08/22/2019 10:40 EST) Pathologist Sig nature GGT 14 <44 U/L [facility] AB Specimen Narrative [facility] - 020 15:15 EST Does PT Have a Latex Allergy? NO AOT: 08/23/19 1504: GGT Performing Organization Address City/[facility]/ZIP Code Phon e Number [facility] [address] [facility], [address] LAB HIV 1/2 AB, P24 AG - [facility] (08/22/2019 10:40 EST) Pathologist Sig nature HIV 1/2 AB, P24 AG - Negative Negative [facility] Specimen Narrative [facility] - 020 12:33 EST Does PT Have a Latex Allergy? NO Performing Organization Address City/[facility]/ZIP Code Phon e Number [facility] [address] LAB (ABNORMAL) LIPID PROFILE (INCLUDES CHOLESTEROL, TRIGLYCERIDES, HDL, LDL) (08/22/2019 10:40 EST) Triglyceride 64 <150 mg/dL [facility] Comment: [facility] Adult: Normal: ?<150 mg/dl ? Borderline High: 150-199 mg/dl ? High: ?200-499 mg/dl ? Very High: >[id number] Cholesterol 227 (H) <200 mg/dL [facility] Comment: [facility] Acceptable: ??<200 Borderline: ??200-239 High: ?> or = 240 Chol/HDL Ratio 3.4 0 - 4.5 [facility] Comment: [facility] DESIRABLE RATIO IS LESS THAN 4.1 PATIENTS ARE CONSIDERED AT RISK: WOMEN RATIO >5 MEN RATIO >6 FASTING? - [facility] Yes [facility] HDL 65 (H) 40 - 60 mg/dL [facility] Comment: [facility] ?? Reference Range Low: ? < 40 ??mg/dL Normal: ??40-60 mg/dL High: ?>= 60 mg/dL LDL CHOLESTEROL - 149 (H) 60 - 100 [facility] mg/dL [facility] Non HDL Cholesterol 162 mg/dl [facility] Comment: [facility] Desirable: ?Less than 130 Borderline High: ??130-159 High: ? 160-189 Very High: ?Greater than or equal to 190 Specimen Narrative [facility] - 020 15:15 EST Does PT Have a Latex Allergy? NO AOT: 08/23/19 1504: GGT Performing Organization Address City/State/[facility] Code Phon e Number [facility] [address] [place] [address] [facility] documented in this encounter Visit Diagnoses Not on filedocumented in this encounter Care Teams Door Liner Helper Relationship Specialty Start Date End Date Rae Diaz PA PCP - General 06/23/16 [address] [place] [address] documented as of this encounter
--- OUTSIDE RECORDS SUMMARY | 2021-11-09 00:46 | XMS_ITS | Clinical Summary ---
:1975 Author Organization [facility] Address [address] [place] [address] Care Team Providers Name Role Phone HORTENSIA Diaz Primary Care Provider Allergies No known active allergies Medications Medication Sig Dispensed Refills Start Date End Date Status escitalopram oxalate Take 40 mg by 0 Active (LEXAPRO) 20 mg tablet mouth daily. cholecalciferol, Take 50,000 Units 0 Active vitamin D3, (VITAMIN by mouth once a D3 ORAL) week. MAGNESIUM ORAL Take by mouth 0 A ctive daily. UNABLE TO FIND Med Name: 0 Activ e Methylfolate lisdexamfetamine Take 40 mg by 0 Active dimesylate mouth daily. (LISDEXAMFETAMINE ORAL) benzonatate (TESSALON) Take 1-2 caps by 30 capsule 0 Active 100 mg mouth three times capsuleIndications: daily as needed Cough for cough Additional Information Patient not taking. Reported on 10/02/2021 guaiFENesin-codeine (GUAIFENESIN Take 5-10ml by mouth 100 mL 0 04/24/2021 Active AC) 100-10 mg/5 mL at bedtime as needed liquidIndications: Cough for cough Additional Information Patient not taking. Reported on 10/02/2021 meloxicam (MOBIC) 15 mg Take 1 Tablet by 90 Tablet 2 2 Active tabletIndications: Arthralgia of mouth daily. both hands Active Problems Problem Noted Date Arthralgia 12/01/2019 Encounters Date Type Specialty Care Team Description 11/04/2021 Hospital Encounter Radiology Arthralgi a of both hands 10/02/2021 Phlebotomy Only Clinical Laboratory Lab, [facility] [place] Arthr algia of both hands; Phlebotomy Malaise and fat igue 10/02/2021 Office Visit Rheumatology Andreas Dyer and fat kezia (Primary Dx); CHELSI Metzger Arthralgia of both hands; Trigger middle finger of right hand from Last 3 Months Medical History Medical History Date Comments Hypercholesteremia Adhd Eczema Family History Medical History Relation Name Comments Blindness Neg Hx Cataract Neg Hx Glaucoma Neg Hx Macular Degeneration Neg Hx Social History Tobacco Use Types Packs/Day Years Used Date Never Smoker Smokeless Tobacco: Never Used Alcohol Use Standard Drinks/Week Comments Yes 1 (1 standard drink = 0.6 oz pure alcoho l) Sex Assigned at Date Recorded Not on file Last Filed Vital Signs Vital Sign Reading Time Taken Comments Blood Pressure 113/76 10/02/2021 1529 EDT Pulse 84 10/02/2021 1529 EDT Temperature 36.4 ??C (97.5 ??F) 10/02/2021 1529 EDT Respiratory Rate - - Oxygen Saturation - - Inhaled Oxygen Concentration - - Weight 100.2 kg (221 lb) 10/02/2021 1529 EDT Height 162.6 cm (5' 4) 10/02/2021 1529 EDT Body Mass Index 37.93 10/02/2021 1529 EDT Plan of Treatment Upcoming Encounters Date Type Specialty Care Team Description 11/11/2021 Office Visit Rheumatology Frederic Dyer APRN [address] [facility] [address] [phone] 12/25/2021 Appointment Radiology Health Maintenance Due Date Last Done Comments Hepatitis C Screen 1975 COVID-19 Vaccine (1) 1981 Procedures Procedure Name Priority Date/Time Associated Comments Diagnosis XR RHEUMATOID HANDS Routine 11/04/2021 16:30 Arthralgia of bot h Results for this EDT hands procedure are i n the results section. C REACTIVE PROTEIN Routine 10/02/2021 16:27 Arthralgia of both Results for this EDT hands procedure are i n the results section. COMPREHENSIVE Routine 10/02/2021 16:27 Arthralgia of both Resu lts for this METABOLIC PANEL (CMP) EDT hands proced ure are in the results section. THYROID CASCADE Routine 10/02/2021 16:27 Arthralgia of both Re sults for this EDT hands procedure are in Malaise and fatigue the resu lts section. CCP ANTIBODIES Routine 10/02/2021 16:27 Arthralgia of both Res ults for this EDT hands procedure are i n the results section. COMPLETE BLOOD COUNT Routine 10/02/2021 16:27 Arthralgia of rusty th Results for this AND DIFFERENTIAL EDT hands procedure a re in the results section. from Last 3 Months Results XR RHEUMATOID HANDS (11/04/2021 16:30 EDT) Anatomical Region Laterality Modality Upper Extremities Computed Radiography Specimen Impressions [facility] - 11/04/2021 17:02 EDT [...] REGARDING THIS REPORT PLEASE CALL [facility] AT [phone] Narrative [facility] [place] - 11/04/2021 17:02 EDT PROCEDURE INFORMATION: Exam: [...] REGARDING THIS REPORT PLEASE CALL [facility] AT [phone] Performing Organization Address City/State/ZIP Code Phon e Number [facility] CCP ANTIBODIES (10/02/2021 16:27 EDT) Pathologist Sig nature CCP Antibodies <2.5 <5.0 U/mL [facility] Specimen Blood - Venous blood (substance) Performing Organization Address City/State/ZIP Code Phon e Number [facility] [address] [place] [address] SERVICES THYROID CASCADE (10/02/2021 16:27 EDT) Pathologist Sig nature TSH 3.55 0.47 - 4.68 ??IU/mL [facility] Specimen Blood - Venous blood (substance) Narrative [facility] - 022 18:09 EDT NOTE: The results of this assay can be falsely lowered due to the consumption of Biotin. Performing Organization Address City/State/ZIP Code Phon e Number [facility] [address] [place] [address] COMPLETE BLOOD COUNT AND DIFFERENTIAL (10/02/2021 16:27 EDT) Pathologist Sig nature WBC 6.94 4.00 - 12.40 [facility] RBC 4.49 3.86 - 5.04 [facility] Hemoglobin 12.6 11.6 - 15.2 [facility] gm/dL [facility] HCT 37.1 34.9 - 44.4 % [facility] MCV 83 81 - 98 fl [facility] MCH 28.1 26.7 - 33.3 pg [facility] MCHC 34.0 32.1 - 35.9 [facility] gm/dL [facility] RDW-CV 13.9 <14.7 % [facility] RDW-SD 41.6 <50.4 fl [facility] PLT 256 141 - 377 K/cmm [facility] MPV 10.4 9.5 - 12.7 fl [facility] Neutrophils 65.8 % [facility] Lymphocytes 24.6 % [facility] Monocytes 5.6 % [facility] Eosinophils 2.9 % [facility] Basophils 0.7 % [facility] Immature Grans 0.4 % [facility] Absolute Neutrophils 4.56 2.20 - 8.85 [facility] Absolute Lymphocytes 1.71 1.09 - 3.30 [facility] Absolute Monocytes 0.39 0.10 - 0.80 [facility] Absolute Eosinophils 0.20 0.03 - 0.61 [facility] Absolute Basophils 0.05 0.01 - 0.11 [facility] Absolute Immature 0.03 0.00 - 0.06 [facility] Grans [facility] Type of Differential: Auto [facility] Specimen Blood - Venous blood (substance) Performing Organization Address City/State/ZIP Code Phon e Number [facility] [address] [place] [address] C REACTIVE PROTEIN (10/02/2021 16:27 EDT) Pathologist Sig nature C-Reactive Protein 6.1 <10.0 mg/L [facility] Specimen Blood - Venous blood (substance) Performing Organization Address City/[facility] Code Phon e Number [facility] [address] [place] [address] (ABNORMAL) COMPREHENSIVE METABOLIC PANEL (CMP) (10/02/2021 16:27 EDT) Pathologist Sig nature Sodium 137 136 - 145 [facility] mmol/L [facility] Potassium 4.3 3.5 - 5.0 [facility] mmol/L [facility] Chloride 103 96 - 110 mmol/L [facility] CO2 Total 22 22 - 32 mmol/L [facility] Glucose 116 (H) 70 - 100 mg/dL [facility] BUN 9 (L) 10 - 26 mg/dL [facility] Creatinine 0.45 (L) 0.52 - 1.04 [facility] mg/dL [facility] eGFR 121 >60 [facility] mL/min/1.73m2 [facility] Total Protein 7.1 6.3 - 8.2 g/dL [facility] Albumin 4.1 3.4 - 4.9 g/dL [facility] Alkaline Phosphatase 64 38 - 126 U/L [facility] AST 31 15 - 46 U/L [facility] ALT 20 <35 U/L [facility] Bilirubin, Total 0.4 <1.4 mg/dL [facility] Calcium 8.5 8.5 - 10.5 [facility] mg/dL [facility] Albumin/Globulin 1.4 1.0 - 2.5 [facility] Anion Gap 12 5 - 14 [facility] Specimen Blood - Venous blood (substance) Performing Organization Address City/[facility]/ZIP Code Phon e Number [facility] [address] [place] [address] from Last 3 Months Insurance Payer Benefit Plan / Subscriber ID Effective Dates Phone Addre ss Type Group BC[place] P [place] [facility] [id number] 2019-Present [address] [facility] [place] [address] Nora Boogie Personal/Family Self 1975 [address] (Home) [place] [address] Nora Boogie Personal/Family Self 1975 [address] (Home) [facility] [place] [address] Nora Boogie Personal/Family Self 1975 [address] (Home) [place] [address] Nora Boogie Personal/Family Self 1975 [address] (Home) [place] [address] Nora Boogie Personal/Family Self 1975 [address] (Home) [place] [address] Nora Boogie Personal/Family Self 1975 [address] (Home) [facility] [place] [address] Nora Boogie Personal/Family Self 1975 [address] (Home) [place] [address] Care Teams Sugarcane Research Technician Relationship Specialty Start Date End Date Rae Diaz PA PCP - General 06/23/[address] [place] [id number]
--- OUTSIDE RECORDS SUMMARY | 2021-11-09 00:46 | XMS_ITS | Encounter Summary ---
:1975 Author Organization [facility] Address [address] [place] [address] Care Team Providers Name Role Phone HORTENSIA Diaz Primary Care Provider Reason for Visit Reason Comments Follow-up Pt reports hand pain.Sugar i s a trigger.Right worse than left.Pain worse than at last visit.Worse in AM and then improves. Encounter Details Date Type Department Care Team Description 07/07/2020 Office Visit [facility], Arthral belinda of both hands (Primary Dx); [facility] Rheumatology CHELSI Metzger Malaise and fatigue [address] [place] [address] [address] [place] [address] Social History Tobacco Use Types Packs/Day Years Used Date Never Smoker Smokeless Tobacco: Never Used Alcohol Use Standard Drinks/Week Comments Yes 1 (1 standard drink = 0.6 oz pure alcoho l) Sex Assigned at Date Recorded Not on file COVID-19 Exposure Response Date Recorded In the last month, have you been in contact with No / Unsure 07/07/2020 8:20 EST someone who was confirmed or suspected to have Coronavirus / COVID-19? documented as of this encounter Last Filed Vital Signs Vital Sign Reading Time Taken Comments Blood Pressure 136/86 07/07/2020 0822 EST Pulse - - Temperature 35.9 ??C (96.7 ??F) 07/07/2020 0822 EST Respiratory Rate - - Oxygen Saturation - - Inhaled Oxygen Concentration - - Weight 77.1 kg (170 lb) 07/07/2020 0822 EST Height - - Body Mass Index 29.18 [...] Sig Dispensed Refills Start Date End Date predniSONE (DELTASONE) 5 Take 3 Tabs by 22 Tab 1 020 07/18/2020 mg tabletIndications: mouth daily for 4 Arthralgia of both hands days, THEN 2 Tabs daily for 3 days, THEN 1 Tab daily for 4 days. documented in this encounter Progress Notes Domenica Dyer APRN - 07/07/2020 0815 EST [facility] Rheumatology Chief Complaint Patient presents with ??? Follow-up Pt reports hand pain.Sugar is a trigger.Right worse than left.Pain worse than at last visit.Worse in AM and then improves. HPI: 44-year-old woman initially evaluated on 12/26/19 for bilateral joint pain of her hands. 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 ??Notes mornings are worse in regards to pain. ??Also reports some painful numbness and tingling primarily of the long fingers. Other symptoms include elbow soreness both medially and laterally. ??Symptoms seem to improve throughout the day. History of??left??corneal abrasion about 15 years ago which healed and then flared again. Last winter, also noted onset of left hand palmar thickening which was symptomatic with activities such as plank type exercises. Longstanding eczema on her face but no personal or family history of psoriasis. ? Labs on 12/05/19 include CRP, CMP, Lyme, DEVON, RF and CCP all negative or WNL Imaging of hands on 12/18/19 at [facility] and available for review. ?? INTERVAL HISTORY: Past modest improvement of symptoms with oral diclofenac at onset of use. Diet has included more sugar. Hand pain worse, R > L. Ongoing paresthesias to all of her fingertips. Also has some ulnar-sided symptoms. Morning stiffness persists. Additionally, her shoulders have been sore with remote injury to the left shoulder and physical therapy several years ago. No change to facial skin eczema. Did not take test dose of oral prednisone. Current Outpatient Medications Medication ??? cholecalciferol, vitamin D3, (VITAMIN D3 ORAL) ??? escitalopram oxalate (LEXAPRO) 20 mg tablet ??? lisdexamfetamine (VYVANSE) 70 mg capsule ??? MAGNESIUM ORAL ??? 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 Negative for fever. Respiratory: Negative for cough and shortness of breath. Cardiovascular: Negative for chest pain. Gastrointestinal: Negative for nausea and vomiting. Musculoskeletal: Positive for joint pain. Skin: Positive for rash. Physical Examination: BP 136/86 Temp 35.9 ??C (96.7 ??F) Wt 77.1 kg (170 lb) BMI 29.18 kg/m?? EYES: Conjunctivae not injected ENT: Oral and nasal mucosa not examined. Protective mask in place secondary to COVID-19 precautions. NECK: Supple. Normal resting posture. CHEST: Unlabored breathing CARDIOVASCULAR: No peripheral edema. SKIN: No rash on exposed areas of arms. No fingernail pitting. No dilated capillary loops in the nail beds. MUSCULOSKELETAL EXAM: Focused exam of hands and wrists with some mild fullness about the right palmar aspect. Some mild tenderness in line with the long finger on the right. Some thickening appreciated on palpation. No active or visible triggering with repeated flexion extension. Able to pull all of her fingertips to her palm bilaterally. No erythema, warmth or synovitis appreciated of the dorsal aspect of the MCP joints. Labs: No visits with results within 3 Month(s) from this visit. Latest known visit with results is: Results Only on 02/02/2020 Component Date Value ??? CHLAMYDIA PCR - [facility] 02/02/2020 NOT DETECTED ??? GONORRHEA PCR - [facility] 02/02/2020 NOT DETECTED ??? SOURCE - [facility] 02/02/2020 VAGINAL ??? 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 Low-dose short course prescribed. Also ordered thyroid cascade as she states her mom relate history of both she and her maternal grandmother with thyroid conditions. Follow-up in 1 month with remote visit for symptom check and response to oral prednisone. Domenica Dyer APRN 07/07/2020 8:41 documented in this encounter Plan of Treatment Upcoming Encounters Date Type Specialty Care Team Description 11/11/2021 Office Visit Rheumatology Frederic Dyer APRN [address] [facility] [address] [place] [address] 12/25/2021 Appointment Radiology documented as of this encounter Visit Diagnoses Diagnosis Arthralgia of both hands - Primary Malaise and fatigue Other malaise and fatigue documented in this encounter Discontinued Medications Medication Sig Discontinue Reason Start Date End Date traZODone (DESYREL) 50 Take 50 mg by mouth Therapy completed 07/07/2020 mg tablet as needed for Sleep. diclofenac (VOLTAREN) Take 1 Tab by mouth 2 Patient Stopped 020 07/07/2020 75 mg EC times daily. Taking tabletIndications: Arthralgia of both hands predniSONE (DELTASONE) Take 1-4 tablets Patient Stopped 02/19/2020 07/07/2020 5 mg daily as needed for Taking tabletIndications: inflammation Synovitis and tenosynovitis documented as of this encounter Care Teams Secondary Connector Armature Relationship Specialty Start Date End Date Rae Diaz PA PCP - General 06/23/[address] [place] [phone] documented as of this encounter
--- OUTSIDE RECORDS SUMMARY | 2021-11-09 00:46 | XMS_ITS | Encounter Summary ---
:1975 Author Organization [facility] Address [address] [place] [address] Care Team Providers Name Role Phone HORTENSIA Diaz Primary Care Provider Encounter Details Date Type Department Care Team Description 10/04/2018 Historical Results Only [facility] Rachael Diaz, [facility] - Main [facility] [address] [place] [address] [place], [place] [phone] [id number] Social History Tobacco Use Types Packs/Day Years [...] Description 11/11/2021 Office Visit Rheumatology Frederic Dyer, TOBACCO STEMMER [address] [facility] [address] [place] [address] 12/25/2021 Appointment Radiology documented as of this encounter Procedures Procedure Name Priority Date/Time Associated Comments Diagnosis POCT CHOLESTEROL LDL Routine 10/04/2018 13:51 Res ults for this ([facility] EDT procedure are i n the results section. documented in this encounter Results (ABNORMAL) POCT CHOLESTEROL LDL ([facility]) (10/04/2018 13:51 EDT) Pathologist Sig nature LDL CHOLESTEROL - [facility] 152 (H) 60 - 100 MG/DL [facility] Specimen Performing Organization Address City/State/ZIP Code Phon e Number [facility] [address] [place] [address] [facility] documented in this encounter Visit Diagnoses Not on filedocumented in this encounter Care Teams Gas Distribution And Emergency Clerk Relationship Specialty Start Date End Date Rae Diaz PA PCP - General 06/23/16 [address] [place] [address] documented as of this encounter
--- OUTSIDE RECORDS SUMMARY | 2021-11-09 00:46 | XMS_ITS | Encounter Summary ---
:1975 Author Organization [facility] Address [address] [place] [address] Care Team Providers Name Role Phone HORTENSIA Diaz Primary Care Provider Encounter Details Date Type Department Care Team Description 10/04/2018 Historical Results Only [facility] Rachael Diaz, [facility] - Main [facility] [address] [place] [address] [place], [place] [phone] Social History Tobacco Use Types Packs/Day Years [...] Description 11/11/2021 Office Visit Rheumatology Frederic Dyer, TAG MAKER [address] [facility] [address] [place] [address] 12/25/2021 Appointment Radiology documented as of this encounter Procedures Procedure Name Priority Date/Time Associated Diagnosis Comme nts VITAMIN D 25 POC - Routine 10/04/2018 13:51 Resul ts for this [facility] EDT procedure are i n the results section. documented in this encounter Results VITAMIN D 25 POC - [facility] (10/04/2018 13:51 EDT) Pathologist Sig nature VIT D, 25 HYDROXY - 64 30 - 100 NG/ML [facility] Specimen Performing Organization Address City/State/ZIP Code Phon e Number [facility] [address] [place] [address] [facility] documented in this encounter Visit Diagnoses Not on filedocumented in this encounter Care Teams Keno Dealer Relationship Specialty Start Date End Date Rae Diaz PA PCP - General 06/23/16 [address] [place] [address] documented as of this encounter
--- OUTSIDE RECORDS SUMMARY | 2021-11-09 00:46 | XMS_ITS | Encounter Summary ---
:1975 Author Organization [facility] Address [address] [place] [address] Care Team Providers Name Role Phone HORTENSIA Diaz Primary Care Provider Reason for Visit Reason Comments Follow-up hand arthralgias Encounter Details Date Type Department Care Team Description 08/04/[address] [facility] - Anai Dyer of both [facility] [place] Rheumatology CHELSI Metzger hands (Primary Dx) [address] [place] [address] [address] [place] [id number] Social History Tobacco Use Types Packs/Day Years [...] / COVID-19? documented as of this encounter Functional Status [...] 15 mg Take 1 Tab by mouth 30 Tab 2 11/03/2020 tabletIndications: daily. Arthralgia of both hands documented in this encounter Progress Notes Domenica Dyer, CHELSI - 08/04/2020 1145 EST [facility] [place] Telephone Visit Verbal consent: The concept of ???Telemedicine?? has been described to the patient. Patient has been informed of the anticipated benefits and possible risks. Patient understands the information provided regarding telemedicine, has had the opportunity to ask questions about this information, and all questions have been answered to patient???s satisfaction. Patient consents for the use of telemedicine in his/her medical care and authorizes the transmission of any relevant medical information to providers and their staff involved in patient???s medical or mental health care. Verbal consent obtained by myself or auxiliary staff: yes. Subjective: Chief Complaint(s): Follow-up (hand arthralgias) HPI: Known patient initially evaluated on 12/26/19 for bilateral joint pain of her hands. ?? Mornings are worse in regards to pain. ?? Also reports some painful numbness and tingling primarily of the long fingers. Symptoms seem to improve throughout the day. History of??left??corneal abrasion about 15 years ago which healed and then flared again. Longstanding eczema on her face but no personal or family history of psoriasis. ?? No GI complaints. ?? Previous treatment with oral diclofenac with only initial response/improvement x 3 days. Labs on 12/05/19 include CRP, CMP, Lyme, DEVON, RF and CCP all negative or WNL Imaging of hands on 12/18/19 at [facility] [place] and available for review. ?? INTERVAL HISTORY: Noted improvement the first few days with diclofenac. Then no real benefit. Took low dose prednisone with some modest improvement in hand pain during use. No lasting effects. [place] like fingers weren't as tight in the morning Wrist braces at night and that helps with symptoms of paresthesias Sleep is a bit off with irregular schedule secondary to work schedule Skin has her usual ezema with symptoms in the last few years on face Has a mirena IUD but no reported hot flashes Right long finger without any active or palpable triggering or catching I have reviewed patient's tobacco history: reports that she has never smoked. She has never used smokeless tobacco. I have reviewed current problem list and current medications. ROS: Review of Systems Constitutional: Positive for malaise/fatigue. Negative for fever. Respiratory: Negative for cough and shortness of breath. Cardiovascular: Negative for chest pain. Musculoskeletal: Positive for joint pain. Skin: Negative for rash. Objective: Examination: Home Vitals: There were no vitals taken for this visit. Pertinent exam findings: speaking in full sentences, no audible wheeze and mood and affect appropriate Data reviewed with patient: Reviewed and/or ordered active problem list, medication list, allergies,social history, notes from last encounter, lab results, imaging tests Assessment & Plan: 1. Arthralgia of both hands Trial of meloxicam in the evening/night for 2-4 weeks to see if improvement in morning hand stiffness. Topical remedies as before Continue with dietary and exercise changes Follow up in 3 months for re-evaluation - meloxicam (MOBIC) 15 mg tablet; Take 1 Tab by mouth daily. Dispense: 30 Tab; Refill: 2 Patient initiated phone contact with the office: yes. Patient is an established patient (parent, guardian) yes. E/M provided within previous 7 days for same medical assessment: no Anticipate E/M service within 24hrs or next available urgent appointment no. This visit was conducted by telephone. A total of 23 minutes was spent on this encounter on the day of this encounter. documented in this encounter Plan of Treatment Upcoming Encounters Date Type Specialty Care Team Description 11/11/2021 Office Visit Rheumatology Frederic Dyer APRN [address] [facility] [address] [place] [address] 12/25/2021 Appointment Radiology documented as of this encounter Visit Diagnoses Diagnosis Arthralgia of both hands - Primary documented in this encounter Care Teams Rounder And Backer Relationship Specialty Start Date End Date Rae Diaz PA PCP - General 06/23/16 [address] [place] [address] documented as of this encounter
--- OUTSIDE RECORDS SUMMARY | 2021-11-09 00:46 | XMS_ITS | Encounter Summary ---
:1975 Author Organization [facility] Address [address] [place] [address] Care Team Providers Name Role Phone HORTENSIA Diaz Primary Care Provider Encounter Details Date Type Department Care Team Description 08/22/2019 Results Only [facility] Rae Diaz PA Lab - [address] [place] [address] [facility] [address] [place] [address] [place] [address] [phone] Social History Tobacco Use Types Packs/Day Years [...] Description 11/11/2021 Office Visit Rheumatology Frederic Dyer, JANITOR CLEANER [address] [facility] [address] [place] [address] 12/25/2021 Appointment Radiology documented as of this encounter Procedures Procedure Name Priority Date/Time Associated Comments Diagnosis COMPREHENSIVE Routine 08/22/2019 10:40 Results fo r this METABOLIC PANEL (CMP) EST proced ure are in the results section. documented in this encounter Results (ABNORMAL) COMPREHENSIVE METABOLIC PANEL (CMP) (08/22/2019 10:40 EST) ALBUMIN - [facility] 4.5 3.4 - 4.9 [facility] g/dL [facility] ALKALINE 46 38 - 126 U/L [facility] PHOSPHATASE - [facility] BILIRUBIN TOTAL 0.8 0.2 - 1.3 [facility] mg/dL [facility] BUN - [facility] 13 10 - 26 mg/dL [facility] CALCIUM - [facility] 9.1 8.5 - 10.5 [facility] mg/dL [facility] Chloride 101 96 - 110 [facility] mmol/L [facility] CO2 Total 27 22 - 32 mEq/L [facility] CREATININE 0.61 0.52 - 1.04 [facility] mg/dL [facility] eGFR >60 [facility] Comment: [facility] Chronic renal impairment is defined as GFR <60 Multiply result by 1.210 for patients . eGFR calculated using the IDMS-traceable MDRD Study Equation. ??(effective 05/13/2014) Anion Gap 9 0 - 18 [facility] GLUCOSE - [facility] 81 70 - 100 [facility] mg/dL [facility] Potassium 4.4 3.5 - 5.0 [facility] mEq/L [facility] Sodium 137 136 - 145 [facility] mEq/L [facility] TOTAL PROTEIN - 7.5 6.2 - 8.2 [facility] gm/dL [facility] SGOT/AST - [facility] 56 (H) 14 - 36 U/L [facility] SGPT/ALT - [facility] 64 (H) 0 - 35 U/L [facility] Specimen Narrative [facility] - 020 15:15 EST Does PT Have a Latex Allergy? NO AOT: 08/23/19 1504: GGT Performing Organization Address City/State/ZIP Code Phon e Number [facility] [address] [place] [address] [facility] documented in this encounter Visit Diagnoses Not on filedocumented in this encounter Care Teams Automotive Dismantler Relationship Specialty Start Date End Date Rae Diaz PA PCP - General 06/23/16 [address] [place] [address] documented as of this encounter
--- OUTSIDE RECORDS SUMMARY | 2021-11-09 00:46 | XMS_ITS | Encounter Summary ---
:1975 Author Organization [facility] Address [address] [place] [address] Care Team Providers Name Role Phone HORTENSIA Diaz Primary Care Provider Reason for Visit Reason Comments Follow-up Did try the diclofenac and t hat did seem to help at first, recently ran out. Has had a new onset of right middle finger pain. Generalized pain and stiffness in both hands in t he morning Encounter Details Date Type Department Care Team Description 02/19/2020 Office Visit [facility] - Veto Dyer is and tenosynovitis (Primary Dx); [facility] Rheumatology CHELSI Metzger Arthralgia of both hands [address] [place] [address] [address] [place] [address] Social History Tobacco Use Types Packs/Day Years Used Date Never Smoker Smokeless Tobacco: Never Used Alcohol Use Standard Drinks/Week Comments Yes 1 (1 standard drink = 0.6 oz pure alcoho l) Sex Assigned at Date Recorded Not on file documented as of this encounter Last Filed Vital Signs Vital Sign Reading Time Taken Comments Blood Pressure 108/70 02/19/2020 1002 EDT Pulse - - Temperature - - Respiratory Rate - - Oxygen Saturation - - Inhaled Oxygen Concentration - - Weight 75.8 kg (167 lb) 02/19/2020 1002 EDT Height 162.6 cm (5' 4) 02/19/2020 1002 EDT Body Mass Index 28.67 02/19/2020 1002 EDT documented in this encounter [...] Refills Start Date End Date predniSONE (DELTASONE) Take 1-4 tablets daily 40 Tab 1 0 02/19/2020 07/07/2020 5 mg tabletIndications: as needed for Synovitis and inflammation tenosynovitis diclofenac (VOLTAREN) Take 1 Tab by mouth 2 90 Tab 1 05/202007/07/2020 75 mg EC times daily. tabletIndications: Arthralgia of both hands documented in this encounter Progress Notes Domenica Dyer APRN - 02/19/2020 0945 EDT [facility] Rheumatology Chief Complaint Patient presents with ??? Follow-up Did try the diclofenac and that did seem to help at first, recently ran out. Has had a new onset of right middle finger pain. Generalized pain and stiffness in both hands in the morning HPI: 44-year-old woman initially evaluated on 12/26/19 for bilateral joint pain of her hands. Endorses that joint stiffenss in both hands comes and goes. Feels as though it progressed during the winter 2018-4675. 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 Notes mornings are worse in regards to pain. Also reports some painful numbness and tingling primarily of the long fingers. Other symptoms include elbow soreness both medially and laterally. Symptoms seem to improve throughout the day. Has some low back pain. Denies leg or foot paresthesias. Intermittent pain [...] and wheat with some general improvement insymptoms. ?? Recent labs on 12/05/19 include CRP, CMP, Lyme, DEVON, RF and CCP all negative or WNL Imaging of hands on 12/18/19 at [facility] and available for review. INTERVAL HISTORY: Noted improvement the first few days with diclofenac. However, has persistent hand pain R > L. Palmar region with some shooting pain with activities such as opening a jar or pulling weeks. Other joint pain seems to be doing ok. Current Outpatient Medications Medication ??? cholecalciferol, vitamin D3, (VITAMIN D3 ORAL) ??? diclofenac (VOLTAREN) 75 mg EC tablet ??? escitalopram oxalate (LEXAPRO) 20 mg tablet ??? lisdexamfetamine (VYVANSE) 70 mg capsule ??? MAGNESIUM ORAL ??? traZODone (DESYREL) 50 mg tablet ??? 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 Single mother of 4 children Review of Systems: Review of Systems Constitutional: Negative for chills and fever. Respiratory: Negative for cough and shortness of breath. Gastrointestinal: Negative for nausea and vomiting. Musculoskeletal: Positive for joint pain. Skin: Negative for rash. Physical Examination: BP 108/70 (BP Cuff Sizes: Adult, regular) Ht 162.6 cm (64) Wt 75.8 kg (167 lb) BMI 28.67 kg/m?? EYES: Conjunctivae not injected ENT: Oral [...] dorsal aspect of the MCP joints. Labs: Results Only on 02/02/2020 Component Date Value ??? CHLAMYDIA PCR - [facility] 02/02/2020 NOT DETECTED ??? GONORRHEA PCR - [facility] 02/02/2020 NOT DETECTED ??? SOURCE - CV 02/02/2020 VAGINAL ??? TRICHOMONAS VAGINALIS PC* 02/02/2020 NOT DETECTED Lab Requisition on 12/05/2019 Component Date Value ??? DEVON Interpretation 12/05/2019 Negative Office Visit on 12/05/2019 Component Date Value ??? RHEUMATOID FACTOR SCREEN* 12/05/2019 NEG ? ? Cyclic Citrullinated Pep* 12/05/2019 <15.6 Results Only on 12/03/2019 Component Date Value ??? TEST CANCELLED - [facility] 12/03/2019 SEE NOTE Telephone on 12/01/2019 Component Date Value ? ? C-Reactive Protein 12/05/2019 <5.0 ??? DEVON Interpretation 12/05/2019 Negative ??? Triglyceride 12/05/2019 78 ??? Cholesterol 12/05/2019 190 ??? Chol/HDL Ratio 12/05/2019 3.9 ??? FASTING? - CV 12/05/2019 Unknown ??? HDL 12/05/2019 48 ??? LDL CHOLESTEROL - [facility] 12/05/2019 126* ??? Non HDL Cholesterol 12/05/2019 142 ??? ALBUMIN - [facility] 12/05/2019 4.4 ??? ALKALINE PHOSPHATASE - C* 12/05/2019 40 ??? BILIRUBIN TOTAL - [facility] 12/05/2019 0.9 ??? BUN - [facility] 12/05/2019 11 ??? CALCIUM - [facility] 12/05/2019 9.6 ??? Chloride 12/05/2019 100 ??? CO2 Total 12/05/2019 29 ??? CREATININE - [facility] 12/05/2019 0.72 ? ? eGFR 12/05/2019 >60 ??? Anion Gap 12/05/2019 7 ??? GLUCOSE - [facility] 12/05/2019 102* ??? Potassium 12/05/2019 4.0 ??? Sodium 12/05/2019 136 ??? TOTAL PROTEIN - [facility] 12/05/2019 7.0 ??? SGOT/AST - [facility] 12/05/2019 24 ??? SGPT/ALT - [facility] 12/05/2019 15 ??? LYME AB IGG - [facility] 12/05/2019 NEGATIVE ??? Lyme Ab 12/05/2019 NEGATIVE Diagnosis / Assessment: Problem List Items Addressed This Visit Musculoskeletal Arthralgia Relevant Medications diclofenac (VOLTAREN) 75 mg EC tablet Other Visit Diagnoses Synovitis and tenosynovitis - Primary Relevant Medications predniSONE (DELTASONE) 5 mg tablet Some improvement noted with oral NSAID. Recommendations/Evaluation: Discussed potential options for treatment including focused corticosteroid injection of suspected tenosynovitis of right long finger. Also discussed potential diagnostic benefit of short course of low-dose oral prednisone. She would like to proceed with short burst of prednisone for symptom management that she will likelydo at some point in the future. Refill for diclofenac as it does seem to be helping with some of the joint stiffness particularly inthe morning. Follow up in 3 months for re-evaluation. Instructed to call sooner if any worsening or change in symptoms. Domenica Dyer APRN 02/19/2020 10:09 documented in this encounter Plan of Treatment Upcoming Encounters Date Type Specialty Care Team Description 11/11/2021 Office Visit Rheumatology Frederic Dyer APRN [address] [facility] [address] [address] 12/25/2021 Appointment Radiology documented as of this encounter Visit Diagnoses Diagnosis Synovitis and tenosynovitis - Primary Synovitis and tenosynovitis, unspecified Arthralgia of both hands documented in this encounter Discontinued Medications Medication Sig Discontinue Reason Start Date End Date diclofenac (VOLTAREN) 75 Take 1 Tab by mouth 0 02/19/2020 mg EC tabletIndications: 2 times daily. Arthralgia of both hands documented as of this encounter Care Teams Shipper/Receiver Relationship Specialty Start Date End Date Rae Diaz PA PCP - General 06/23/[address] [place] [address] documented as of this encounter
--- OUTSIDE RECORDS SUMMARY | 2021-11-09 00:46 | XMS_ITS | Encounter Summary ---
:1975 Author Organization [facility] Address [address] [place] [address] Care Team Providers Name Role Phone HORTENSIA Diaz Primary Care Provider Encounter Details Date Type Department Care Team Description 07/18/2020 Results Only [facility] Azucena Dyer, Rheumatology LIMEROCK TOWER LOADER [address] [facility] [address] [place] [address] [address] [place] [address] Social History Tobacco Use Types Packs/Day Years [...] Description 11/11/2021 Office Visit Rheumatology Frederic Dyer, LIMEROCK TOWER LOADER [address] [facility] [address] [place] [address] 12/25/2021 Appointment Radiology documented as of this encounter Procedures Procedure Name Priority Date/Time Associated Diagnosis Comme nts THYROID CASCADE Routine 07/18/2020 13:50 EST Resu lts for this procedure are i n the results section. documented in this encounter Results THYROID CASCADE (07/18/2020 13:50 EST) Pathologist Sig nature TSH 1.38 0.46 - 4.68 uIU/mL [facility] Specimen Narrative [facility] - 021 15:06 EST Does PT Have a Latex Allergy? NO Performing Organization Address City/State/ZIP Code Phon e Number [facility] [address] [place] [address] documented in this encounter Visit Diagnoses Not on filedocumented in this encounter Care Teams Legal Biller Relationship Specialty Start Date End Date Rae Diaz PA PCP - General 06/23/16 [address] [place] [address] documented as of this encounter
--- OUTSIDE RECORDS SUMMARY | 2021-11-09 00:46 | XMS_ITS | Encounter Summary ---
:1975 Author Organization [facility] Address [address] [place] [address] Care Team Providers Name Role Phone HORTENSIA Diaz Primary Care Provider Encounter Details Date Type Department Care Team Description 07/07/2020 Travel Social History Tobacco Use Types Packs/Day Years [...] 11/11/2021 Office Visit Rheumatology Frederic Dyer , COTTON CLASSER [address] [facility] [address] [place] [address] 12/25/2021 Appointment Radiology documented as of this encounter Visit Diagnoses Not on filedocumented in this encounter Care Teams Assembler Billiard Table Relationship Specialty Start Date End Date Rae Diaz PA PCP - General 06/23/[address] [place] [address] documented as of this encounter
--- OUTSIDE RECORDS SUMMARY | 2021-11-09 00:46 | XMS_ITS | Encounter Summary ---
:1975 Author Organization [facility] Address [address] [place] [address] Care Team Providers Name Role Phone HORTENSIA Diaz Primary Care Provider Reason for Visit Reason Onset Date Comments Results 04/26/2021 Encounter Details Date Type Department Care Team Description 04/26/2021 Telephone [facility] [place] Kendall Coyne RN Results [facility] [address] [place] [address] Social History Tobacco Use Types Packs/Day Years [...] this encounter Miscellaneous Notes Telephone Encounter - Hi Orozco NP - 04/26/2021 0028 EDT Left message on patient's voicemail with result. Advised to call back to confirm receipt of message. 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 Can send in supportive medications if needed. elephone Encounter - Kendall Coyne RN - 04/26/2021 1359 EDT [place] [facility] [place] called with positive RSV result Sending to provider for review documented in this encounter Plan of Treatment Upcoming Encounters Date Type Specialty Care Team Description 11/11/2021 Office Visit Rheumatology Frederic Dyer , BIOMEDICAL ENGINEERING DIRECTOR [address] [facility] [address] [place] [address] 12/25/2021 Appointment Radiology documented as of this encounter Visit Diagnoses Not on filedocumented in this encounter Care Teams Collections Agent Relationship Specialty Start Date End Date Rae Diaz PA PCP - General 06/23/16 [address] [place] [address] documented as of this encounter
--- OUTSIDE RECORDS SUMMARY | 2021-11-09 00:46 | XMS_ITS | Encounter Summary ---
:1975 Author Organization [facility] Address [address] [place] [address] Care Team Providers Name Role Phone HORTENSIA Diaz Primary Care Provider Reason for Visit Reason Onset Date Comments Results 12/08/2019 Encounter Details Date Type Department Care Team Description 12/08/2019 Telephone [facility] Nichole Salazar, CARPET RENOVATOR Results [facility] [address] [place] [address] [address] [place] [address] (Wo rk) Social History Tobacco Use Types [...] Telephone Encounter - Nichole Salazar APRN - 12/08/2019 0850 EDT I called patient and provided lab results, patient aware, she will follow up with her primary care provider. documented in this encounter Plan of Treatment Upcoming Encounters Date Type Specialty Care Team Description 11/11/2021 Office Visit Rheumatology Frederic Dyer, PRESSURE SUPERVISOR [address] [facility] [address] [place] [address] 12/25/2021 Appointment Radiology documented as of this encounter Visit Diagnoses Not on filedocumented in this encounter Care Teams Gore Seamer Relationship Specialty Start Date End Date Rae Diaz PA PCP - General 06/23/16 [address] [place] [address] documented as of this encounter
--- OUTSIDE RECORDS SUMMARY | 2021-11-09 00:46 | XMS_ITS | Encounter Summary ---
:1975 Author Organization [facility] Address [address] [place] [address] Care Team Providers Name Role Phone HORTENSIA Diaz Primary Care Provider Encounter Details Date Type Department Care Team Description 04/23/2021 Lab Requisition [facility] Outr Resulting Lab, Pathology & Laboratory Provider [facility] [address] [place], [place] [address] Social History Tobacco Use Types Packs/Day Years [...] Description 11/11/2021 Office Visit Rheumatology Frederic Dyer, NON LICENSED NUCLEAR EQUIPMENT OPERATOR [address] [facility] [address] [place] [address] 12/25/2021 Appointment Radiology documented as of this encounter Procedures Procedure Name Priority Date/Time Associated Diagnosis Comme nts COVID-19 TEST [facility] Today 04/23/2021 9:44 LAB PCR EDT COVID-19 TESTING Routine 04/23/2021 9:44 Results for this EDT procedure are i n the results section. documented in this encounter Results COVID-19 TEST [facility] PCR (04/23/2021 9:44 EDT) Specimen Swab - Entire nasopharynx (body structur e) Performing Organization Address [facility] Phon e Number [facility] [address] [place] [address] SERVICES COVID-19 TESTING (04/23/2021 9:44 EDT) COVID-19 rt-PCR Negative Negative [facility] Result Comment: CENTER LABORATORY This test has not been FDA c leared or approved. This test has been authorized by FDA under an EUA for use by authorized laboratories. This test has been authorized only for detection of nucleic acid fro SERVICES m 2019-nCoV, not for any oth er viruses or pathogens. This test is only authorized for the duration of the declaration that circumstances exist justifying the authorization of emergency use of in vitro d iagnostic tests for detectio n and/or diagnosis of 2019-nCoV under section 564(b)(1) of Act, 21 U.S.C ?? 360bbb-3(b) (1), unless the authorization is terminated or revoked sooner. Negative results do not prec lude 2019-nCoV infection and should not be used as the sole basis for treatment or other patient management decisions. Negative results must be combined with clinical observa tions, patient history, and epidemiological informatio n. Performed on the Rapid Vocabulary [place] Fusion instrument Performing Lab [place] [facility] Lab [facility] SERVICES Specimen Swab Performing Organization Address City/[facility] Code Phon e Number [facility] [address] [place] [address] SERVICES documented in this encounter Visit Diagnoses Not on filedocumented in this encounter Care Teams Checker In Relationship Specialty Start Date End Date Rae Diaz PA PCP - General 06/23/16 [address] [place] [address] documented as of this encounter
--- OUTSIDE RECORDS SUMMARY | 2021-11-09 00:46 | XMS_ITS | Encounter Summary ---
:1975 Author Organization [facility] Address [address] [place] [address] Care Team Providers Name Role Phone HORTENSIA Diaz Primary Care Provider Encounter Details Date Type Department Care Team Description 12/03/2019 Results Only [facility] - [facility] Rae Diaz PA Lab - Main [place] [address] [facility] [address] [place] [address] [place] [address] [phone] Social History Tobacco Use Types Packs/Day Years [...] Description 11/11/2021 Office Visit Rheumatology Frederic Dyer, ALTERATIONS SUPERVISOR [address] [facility] [address] [place] [address] 12/25/2021 Appointment Radiology documented as of this encounter Procedures Procedure Name Priority Date/Time Associated Diagnosis Comme nts TEST CANCELLED - Routine 12/03/2019 9:14 Results for this [facility] EDT procedure are i n the results section. documented in this encounter Results TEST CANCELLED - [facility] (12/03/2019 9:14 EDT) TEST CANCELLED - SEE NOTE [facility] Comment: MED CENTER LAB The following test(s) have been cancelled: TEST: ??RA,CCP,CRP,DEVON,LIP,CMP,LYME REASON FOR CANCELLATION: ??SPECIMENS REC'D UNLABELED OFFICE/MD NOTIFIED ??YULIA @ EXP CR Specimen Performing Organization Address City/State/ZIP Code Phon e Number [facility] [address] [place] [address] [facility] documented in this encounter Visit Diagnoses Not on filedocumented in this encounter Care Teams Grain Broker And Market Operator Relationship Specialty Start Date End Date Rae Diaz PA PCP - General 06/23/16 [address] [place] [address] documented as of this encounter
--- OUTSIDE RECORDS SUMMARY | 2021-11-09 00:46 | XMS_ITS | Encounter Summary ---
:1975 Author Organization [facility] Address [address] [place] [address] Care Team Providers Name Role Phone HORTENSIA Diaz Primary Care Provider Encounter Details Date Type Department Care Team Description 09/02/[address] [facility] - Nathalia Diaz, [facility] Radiology Resul ts PA [address] [place] [address] [place], [place] [phone] Social History Tobacco Use Types Packs/Day Years [...] Description 11/11/2021 Office Visit Rheumatology Frederic Dyer, WIRE CHIEF [address] [facility] [address] [place] [address] 12/25/2021 Appointment Radiology documented as of this encounter Procedures Procedure Name Priority Date/Time Associated Diagnosis Comme мария MARLOW BREAST SCREENING 09/02/2020 12:54 Resu lts for this JEANNIE BILATERAL EST procedure are in the results section. documented in this encounter Results MA BREAST SCREENING JEANNIE BILATERAL (09/02/2020 12:54 EST) Specimen Narrative [facility] - 09/02/2020 12:54 EST ? EXAM: MAMMOGRAM/MAMMO BILATERAL SCREEN W ??EX. D/ (1321) ? CLINICAL INFORMATION: ? Z12.31 SCREENING ? INDICATION: Z12.31 SCREENING SCRE ENING Feb 18, 20 ? COMPARISON: ??Comparison has been made to previous images. ? TECHNIQUE: ??Full field digital w hole breast 2D (C-view) and 3D CC and ? MLO views of both breasts were ob tained. CAD technology was utilized. ? FINDINGS: ??The fibroglandular pa tterns of the breasts are normal. ? There has been no change when com pared to previous mammograms and ? there is no mammographic evidence of cancer. ??There are scattered ? areas of fibroglandular density. ? FINAL ASSESSMENT: ??BILATERAL SHANNAN AST - Category 1 - Negative. Routine ? mammographic follow-up is recomme nded. ? These results will be communicate d to your patient via a lay letter ? from Radiology. ??If any addition al imaging is needed we will contact ? your patient directly. ? REPORT SIGNED IN OTHER VENDOR SYSTEM 09/02/2020 ?Reported B y: Arnaud Epps MD ? CC: ? Transcribed Date/Time: 09/02/2020 (3030) ? Manager Of Learning: ? Printed Date/Time: 09/02/2020 (13 53) ? PAGE 1 ? Bertha d Report ? Procedure Note Arnaud Epps MD - 09/02/2020 EXAM: MAMMOGRAM/MAMMO BILATERAL SCR EEN W EX. D/ (1321) CLINICAL INFORMATION: Z12.31 SCREENING INDICATION: Z12.31 SCREENING SCREEN ING Aug 28 COMPARISON: Comparison has been ma de to previous images. TECHNIQUE: Full field digital whol e breast 2D (C-view) and 3D CC and MLO views of both breasts were obta ined. CAD technology was utilized. FINDINGS: The fibroglandular patte rns of the breasts are normal. There has been no change when toan red to previous mammograms and there is no mammographic evidence o f cancer. There are scattered areas of fibroglandular density. FINAL ASSESSMENT: BILATERAL BREAST - Category 1 - Negative. Routine mammographic follow-up is recommend ed. These results will be communicated to your patient via a lay letter from Radiology. If any additional imaging is needed we will contact your patient directly. REPORT SIGNED IN OTHER VENDOR SYSTEM 09/02/2020 Reported By: Arnaud Epps MD CC: Transcribed Date/Time: 09/02/2020 ( 7562) Manager Of Learning: Printed Date/Time: 09/02/2020 (8675 ) PAGE 1 Signed Report Performing Organization Address City/State/ZIP Code Phon e Number [facility] documented in this encounter Visit Diagnoses Not on filedocumented in this encounter Care Teams Pewter Caster Relationship Specialty Start Date End Date Rae Diaz PA PCP - General 06/23/16 [address] [place] [address] documented as of this encounter
--- OUTSIDE RECORDS SUMMARY | 2021-11-09 00:46 | XMS_ITS | Encounter Summary ---
:1975 Author Organization [facility] Address [address] [place] [address] Care Team Providers Name Role Phone HORTENSIA Diaz Primary Care Provider Reason for Referral Radiology Services (Routine/Next Available) - Authorization Not Required Specialty Diagnoses / Procedures Referred By Contact Refer red To Contact Diagnoses Arthralgia of both hands Domenica Dyer APRN [facility] Procedures XR RHEUMATOID HANDS [address] [place] [address] Referral ID Status Reason Start Expiration Visits Visits Date Date Requested Authorized [id number] Authorization Not 10/02/2021 1 1 Required Reason for Visit Reason Comments Follow-up Arthralgia of hands- still v vivek painful and right middle finger locks up. Wrists are okay. Right shoul gregorio and knee, both elbows and rash that appears under right eye (better toda y). Encounter Details Date Type Department Care Team Description 10/02/2021 Office Visit [facility], Malaise and fatigue (Primary Dx); [facility] Rheumatology CHELSI Metzger Arthralgia of both hands; [address] Trigger [place] [address] [address] [place] [address] Social History Tobacco Use Types [...] Body Mass Index 37.93 10/02/2021 1529 EDT documented in this encounter Functional Status [...] Date meloxicam (MOBIC) 15 mg Take 1 Tablet by 90 Tablet 2 2021 tabletIndications: mouth daily. Arthralgia of both hands documented in this encounter Progress Notes Domenica Dyer APRN - 10/02/2021 1530 EDT z[address] [facility] Rheumatology Chief Complaint Patient presents with ??? Follow-up Arthralgia of hands- still very painful and right middle finger locks up. Wrists are okay. Right shoulder and knee, both elbows and rash that appears under right eye (better today). Rheumatology history: DEVON, RF, CCP negative Lyme negative Low inflammatory markers Bilateral hand pain History of eczema on face (no dermatology evaluation in over 10 years) Low dose oral prednisone with modest improvement in hand pain during use Diclofenac - minimally beneficial Meloxicam - better efficacy Right long finger trigger HPI: Initial evaluation on 12/26/2019 Last visit on 11/03/2020 Since that visit, has injured her left knee. Started bothering in May 2021 after going on a long walk. Is worsening of pain with any plant and twisting motions. Has upcoming appointment with orthopedics at [facility] in [place] with Dr. Ann. Has persistent pain of her hands and wrists. Unable to do some yoga which is frustrating. Ongoing and active triggering of her right long finger. Has fear that she will wake up in the middle the night with it locked. Previous hand therapy Currently taking 600 mg of ibuprofen a couple times a week. Has ongoing fatigue Continues to have some skin rashes of patchiness and flaking and wondering if this is more psoriasisthan eczema. Current Outpatient Medications Medication ??? benzonatate (TESSALON) 100 mg capsule ??? cholecalciferol, vitamin D3, (VITAMIN D3 ORAL) ??? escitalopram oxalate (LEXAPRO) 20 mg tablet ??? guaiFENesin-codeine (GUAIFENESIN AC) 100-10 mg/5 mL liquid ??? lisdexamfetamine dimesylate (LISDEXAMFETAMINE ORAL) ??? MAGNESIUM ORAL ??? meloxicam (MOBIC) 15 [...] ??? Alcohol use: Yes Alcohol/week: 1.0 standard drink Types: 1 Standard drinks or equivalent per week ??? 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 Cardiovascular: Negative for chest pain and leg swelling. Gastrointestinal: Negative for heartburn and nausea. Musculoskeletal: Positive for back pain and joint pain. Skin: Negative for itching. Physical Examination: BP 113/76 (BP Cuff Location: Left arm, BP Cuff Sizes: Adult, long) Pulse 84 Temp 36.4 ??C (97.5 ??F) Ht 162.6 cm (64) Wt 100.2 kg (221 lb) BMI 37.93 kg/m?? EYES: Conjunctivae not injected ENT:??Oral and nasal mucosa not examined. ??Protective mask in place secondary to COVID-19 precautions. NECK:??Supple. ??Normal resting posture. ?? CHEST:??Unlabored breathing; lungs clear to auscultation CARDIOVASCULAR: No peripheral edema. SKIN: No rash on??exposed areas of??arms.?No??fingernail pitting. Has had some peeling of fingernails?? MUSCULOSKELETAL EXAM:??Focused exam of hands and wrists with some mild fullness about the right palmar aspect. ??Right long finger with palpable triggering and mild tenderness palmar aspect at the level of the A1 mauro. No appreciable atrophy of the thenar, hypothenar intrinsic musculature bilaterally. Generalized fullness of the digits but no dactylitis or synovitis overlying the MCP joints dorsally. Labs: No visits with results within 3 Month(s) from this visit. Latest known visit with results is: Results Only on 04/26/2021 Component Date Value ??? SARS-CoV-2 RT-PCR 04/26/2021 Not Detected ??? INFLUENZA A PCR - [facility] 04/26/2021 Negative ??? INFLUENZA B PCR - [facility] 04/26/2021 Negative ??? RSV PCR - CV 04/26/2021 Positive Diagnosis / Assessment: Problem List Items Addressed This Visit Musculoskeletal Arthralgia Relevant Medications meloxicam (MOBIC) 15 mg tablet Other Relevant Orders COMPLETE BLOOD COUNT AND DIFFERENTIAL (Completed) CCP ANTIBODIES (Completed) THYROID CASCADE (Completed) COMPREHENSIVE METABOLIC PANEL (CMP) (Completed) C REACTIVE PROTEIN (Completed) XR RHEUMATOID HANDS Other Visit Diagnoses Malaise and fatigue - Primary Relevant Orders THYROID CASCADE (Completed) Trigger middle finger of right hand Relevant Medications methylPREDNISolone ACETATE (DEPO-MEDROL) injection 20 mg (Completed) Hand films from 2 years ago without erosive changes Recommendations/Evaluation: Discussed potential benefit of targeted injection for symptomatic triggering of right long finger. Patient would like to move forward with that today. Recommend she restart meloxicam daily for symptom management. We will repeat some blood work to look for autoimmune or systemic etiology contributing to her symptoms. Follow-up in a month for reevaluation of response to injection and review of imaging and blood work. Domenica Dyer, EXCEPTIONAL CHILDREN TEACHER ASSISTANT 10/02/2021 15:35 Rheumatology Outpatient Procedure Note Title of Procedure: Injection right long finger trigger Date Performed: 10/02/2021 Time Performed: 16:00 Performed by: Domenica Dyer APRN Indications and/or Provisional Diagnosis: Right long finger pain and triggering Consent: Written consent was obtained after patient was informed of the risks, benefits and alternatives. Final verification was Performed. Time out performed. Type of Anesthesia or Sedation: Local Procedure Technique: Site Marked. The area was prepped with alcohol and povidone-iodine . Cutaneous anesthesia and Subcutaneous anesthesia was attained using Ethyl Chloride and Lidocaine 1% w/out epinephrine. Synovial fluid was not removed. Injection of 10mg of Depomedrol (methylprednisolone acetate) and 0.5cc lidocaine 1% without epinephrine was performed. Total dosage in vial: 40mg Total dosage administered: 10mg Total dosage of waste: 30mg Post Procedure Diagnosis and Findings: 1. Malaise and fatigue 2. Arthralgia of both hands 3. Trigger middle finger of right hand Complications: None Patient advised to observe injection site for increasing redness pain or swelling. Ice 20 minutes on/20 minutes off for several cycles throughout the day. No immersion of injection site for 48 hours. Call with any fevers or concerns. Domenica Dyer APRN 10/05/2021 11:28 documented in this encounter Plan of Treatment Upcoming Encounters Date Type Specialty Care Team Description 11/11/2021 Office Visit Rheumatology Frederic Dyer APRN [address] [facility] [address] [address] 12/25/2021 Appointment Radiology documented as of this encounter Results XR RHEUMATOID HANDS (11/04/2021 16:30 EDT) Anatomical Region Laterality Modality Upper Extremities Computed Radiography Specimen Impressions [facility] - 11/04/2021 17:02 [...] REGARDING THIS REPORT PLEASE CALL [facility] AT [phone] [facility] - 11/04/2021 17:02 EDT PROCEDURE INFORMATION: Exam: [...] REGARDING THIS REPORT PLEASE CALL [facility] AT [phone] Performing Organization Address City/State/ZIP Code Phon e Number [facility] C REACTIVE PROTEIN (10/02/2021 16:27 EDT) Pathologist Sig nature C-Reactive Protein 6.1 <10.0 mg/L [facility] Specimen Blood - Venous blood (substance) Performing Organization Address City/[facility]/ZIP Code Phon e Number [facility] [address] [place] [address] (ABNORMAL) COMPREHENSIVE METABOLIC PANEL (CMP) (10/02/2021 16:27 EDT) Pathologist [facility] Sodium 137 136 - 145 [facility] mmol/L [place] [facility] Potassium 4.3 3.5 - 5.0 [facility] mmol/L [place] Chloride 103 96 - 110 mmol/L [facility] CO2 Total 22 22 - 32 mmol/L [facility] Glucose 116 (H) 70 - 100 mg/dL [facility] BUN 9 (L) 10 - 26 mg/dL [facility] Creatinine 0.45 (L) 0.52 - 1.04 [facility] mg/dL [place] [facility] eGFR 121 >60 [facility] mL/min/1.73m2 CENTER LAB Total Protein 7.1 6.3 - 8.2 g/dL [facility] Albumin 4.1 3.4 - 4.9 g/dL [facility] Alkaline Phosphatase 64 38 - 126 U/L [facility] AST 31 15 - 46 U/L [facility] ALT 20 <35 U/L [facility] Bilirubin, Total 0.4 <1.4 mg/dL [facility] Calcium 8.5 8.5 - 10.5 [facility] mg/dL [place] [facility] Albumin/Globulin 1.4 1.0 - 2.5 [facility] Anion Gap 12 5 - 14 [facility] Specimen Blood - Venous blood (substance) Performing Organization Address City/State/ZIP Code Phon e Number [facility] [address] [place] [address] THYROID CASCADE (10/02/2021 16:27 EDT) Pathologist Sig nature TSH 3.55 0.47 - 4.68 ??IU/mL [facility] C ENTER LAB Specimen Blood - Venous blood (substance) Narrative [facility] - 022 18:09 EDT NOTE: The results of this assay can be falsely lowered due to the consumption of Biotin. Performing Organization Address City/State/ZIP Code Phon e Number [facility] [address] [place] [address] CCP ANTIBODIES (10/02/2021 16:27 EDT) Pathologist Sig nature CCP Antibodies <2.5 <5.0 U/mL [facility] Specimen Blood - Venous blood (substance) Performing Organization Address City/[facility]/ZIP Code Phon e Number [facility] [address] [place] [address] SERVICES COMPLETE BLOOD COUNT AND DIFFERENTIAL (10/02/2021 16:27 EDT) Pathologist Sig nature WBC 6.94 4.00 - 12.40 [facility] K/[facility] CENTER LAB RBC 4.49 3.86 - 5.04 [facility] M/[facility]ENTER LAB Hemoglobin 12.6 11.6 - 15.2 [facility] gm/dL CENTER LAB HCT 37.1 34.9 - 44.4 % [facility] MCV 83 81 - 98 fl [facility] MCH 28.1 26.7 - 33.3 pg [facility] MCHC 34.0 32.1 - 35.9 [facility] gm/dL [place] [facility] RDW-CV 13.9 <14.7 % [facility] RDW-SD 41.6 <50.4 fl [facility] PLT 256 141 - 377 K/cmm [facility] MPV 10.4 9.5 - 12.7 fl [facility] Neutrophils 65.8 % [facility] Lymphocytes 24.6 % [facility] Monocytes 5.6 % [facility] Eosinophils 2.9 % [facility] Basophils 0.7 % [facility] Immature Grans 0.4 % [facility] Absolute Neutrophils 4.56 2.20 - 8.85 [facility] LAB Absolute Lymphocytes 1.71 1.09 - 3.30 [facility] Absolute Monocytes 0.39 0.10 - 0.80 [facility] Absolute Eosinophils 0.20 0.03 - 0.61 [facility] Absolute Basophils 0.05 0.01 - 0.11 [facility] Absolute Immature 0.03 0.00 - 0.06 [facility] Grans [facility] LAB Type of Differential: Auto [facility] Specimen Blood - Venous blood (substance) Performing Organization Address City/State/ZIP Code Phon e Number [facility] [address] [place] [address] documented in this encounter Visit Diagnoses Diagnosis Malaise and fatigue - Primary Other malaise and fatigue Arthralgia of both hands Trigger middle finger of right hand Trigger finger (acquired) Arthralgia of both hands documented in this encounter Administered Medications Inactive Administered Medications - up to 3 most recent administrations Medication Order MAR Action Action Date Dose Rate Site methylPREDNISolone ACETATE Given 10/02/2021 17:09 EDT 20 mg (DEPO-MEDROL) injection 20 mg 20 mg, injection, NOW X1, 1 dose, On Tue10/02/21 at 1730, Routine documented in this encounter Discontinued Medications Medication Sig Discontinue Reason Start Date End Date meloxicam (MOBIC) 15 mg Take 1 Tab by mouth Reorder 11/03/2020 10/02/2021 tabletIndications: daily. Arthralgia of both hands documented as of this encounter Care Teams Model And Pattern Supervisor Relationship Specialty Start Date End Date Rae Diaz PA PCP - General 06/23/16 [address] [place] [address] documented as of this encounter
--- OUTSIDE RECORDS SUMMARY | 2021-11-09 00:46 | XMS_ITS | Encounter Summary ---
:1975 Author Organization [facility] Address [address] [place] [address] Care Team Providers Name Role Phone HORTENSIA Diaz Primary Care Provider Encounter Details Date Type Department Care Team Description 04/26/2021 Results Only [facility] Herlinda Whitaker MD [facility] [address] [place] [address] [place] [address] [address] [place] [address] (Wo rk) Social History Tobacco Use Types [...] Description 11/11/2021 Office Visit Rheumatology Frederic Dyer, HOGSHEAD STOCK CLERK 130 [facility] [address] [place], [place] [phone] 12/25/2021 Appointment Radiology documented as of this encounter Procedures Procedure Name Priority Date/Time Associated Diagnosis Comme nts FLU/COVID Routine 04/26/2021 10:51 Results for this PANDA(FLUVID) EDT procedure are i n the results section. documented in this encounter Results FLU/COVID PANDA(FLUVID) (04/26/2021 10:51 EDT) SARS-CoV-2 RT-PCR Not Detected [facility] Comment: [facility] This assay is designed to [...] terminated or revoked sooner. Performed on the FaceTags GeneXpert Instrument at [facility] [address] INFLUENZA A PCR - Negative [facility] INFLUENZA B PCR - Negative [facility] RSV PCR - [facility] Positive [facility] Comment: [facility] Result called to [facility] 04/26/21 1359: Result called by PM Respiratory syncytial virus RNA detected by nucleic ac id amplification with real-time PCR. Specimen Performing Organization Address City/State/ZIP Code Phon e Number [facility] [address] [place] [address] documented in this encounter Visit Diagnoses Not on filedocumented in this encounter Care Teams Project Technician Relationship Specialty Start Date End Date Diaz, Rae, PA PCP - General 06/23/[address] [place] [address] documented as of this encounter
--- OUTSIDE RECORDS SUMMARY | 2021-11-09 00:46 | XMS_ITS | Encounter Summary ---
:1975 Author Organization [facility] Address [address] [place] [address] Care Team Providers Name Role Phone HORTENSIA Diaz Primary Care Provider Reason for Visit Reason Onset Date Comments Medications Refill 02/05/2020 Encounter Details Date Type Department Care Team Description 02/05/2020 Telephone [facility] Respiratory Melly Salazar, IN STORE BANKER Medications Refill Clinic [address] [place] [address] [address] [phone] [place] [phone] (Wo rk) Social History Tobacco Use Types [...] Sig Dispensed Refills Start Date End Date metroNIDAZOLE (FLAGYL) 500 Take 1 Tab by 14 Tab 0 201902/12/2020 mg tabletIndications: mouth 2 times Vaginal discharge daily for 7 days. documented in this encounter Miscellaneous Notes Telephone Encounter - Nichole Salazar APRN - 02/05/2020 1012 EDT Patient called to request prescriptions for the management of chronic BV. She notes she has been diagnosed with BV a number of times in the past and does experience frequent flare of symptoms. Symptomsinclude thick, white/cardozo discharge with strong, fishy odor, slight vaginal pruritus. She was recently tested for GC/Chlamydia/Trich, all negative as reviewed in Epic. Results for orders placed or performed in visit on 02/02/20 GC/CHLAMYDIA/TRICHOMONAS PCR - [facility] Result Value Ref Range CHLAMYDIA PCR - [facility] NOT DETECTED GONORRHEA PCR - [facility] NOT DETECTED SOURCE - [facility] VAGINAL TRICHOMONAS VAGINALIS PCR - [facility] NOT DETECTED We discussed treatment options for chronic BV. Following discussion, patient would like to try the following, 7 day course of metronidazole PO and 21 days of boric acid vaginal suppositories (patient advised to purchase [id number] boric acid and initiate 600 mg vaginal suppositories HS for 21 days to be discontinued if there is adverse local skin reaction/irritation). We discussed safe use and SEs of these medications, including avoidance of concurrent EtOH use with metronidazole. Prescriptions sent to pharmacy. Patient is advised to follow up as needed. Patient verbalizes understanding and agreement with this plan of care. documented in this encounter Plan of Treatment Upcoming Encounters Date Type Specialty Care Team Description 11/11/2021 Office Visit Rheumatology Frederic Dyer APRN 130 [facility] [address] [place] [address] 12/25/2021 Appointment Radiology documented as of this encounter Visit Diagnoses Diagnosis Vaginal discharge - Primary Leukorrhea, not specified as infective documented in this encounter Care Teams Bath Mix Operator Relationship Specialty Start Date End Date Rae Diaz PA PCP - General 06/23/[address] [place] [address] documented as of this encounter
--- OUTSIDE RECORDS SUMMARY | 2021-11-09 00:46 | XMS_ITS | Encounter Summary ---
:1975 Author Organization [facility] Address [address] [place] [address] Care Team Providers Name Role Phone HORTENSIA Diaz Primary Care Provider Reason for Visit Reason Onset Date Comments Labs Only 12/01/2019 Encounter Details Date Type Department Care Team Description 12/01/2019 Telephone [facility] Acute Respirato ry Clinic Nichole Salazar, SILO TENDER Labs Only [address] [facility] [address] [place] [address] Road [phone] [place] [address] (Wo rk) Social History Tobacco Use Types [...] encounter Miscellaneous Notes Telephone Encounter - Nichole Salazar, INFORMATION WRITER - 12/01/2019 1500 EDT Patient called requesting the following labs be ordered for her upcoming appointment with her primary care provider at the [facility], she thinks her primary care provider may have forgotten to put the orders in, requests RF, CCP, CRP, DEVON, Lipids, CMP, Lyme Ab. Labs are ordered, patientis scheduled for an RN visit to have labs drawn. documented in this encounter Plan of Treatment Upcoming Encounters Date Type Specialty Care Team Description 11/11/2021 Office Visit [facility]umatology [facility]yer [facility]N [address] [facility] [address] [place] [address] 12/25/2021 Appointment Radiology Scheduled Orders Name Type Priority Associated Diagnoses Order S chedule RHEUMATOID FACTOR Lab Routine Arthralgia, unspecified joint Ordered: 12/01/2019 CCP ANTIBODIES Lab Routine Arthralgia, unspecified flako int Ordered: 12/01/2019 documented as of this encounter Procedures Procedure Name Priority Date/Time Associated Comments Diagnosis LYME AB Routine 12/05/2019 15:07 Arthralgia, Results for this EDT unspecified joint procedure are in the results section. C REACTIVE PROTEIN Routine 12/05/2019 15:07 Arthralgia, Resul ts for this EDT unspecified joint procedure are in the results section. ANTI NUCLEAR AB (DEVON), Routine 12/05/2019 15:07 Arthralgia, R esults for this IFA EDT unspecified joint procedure are in the results section. LIPID PROFILE Routine 12/05/2019 15:07 History of elevated Res ults for this (INCLUDES CHOLESTEROL, EDT lipids proce dure are in TRIGLYCERIDES, HDL, the resu lts LDL) section. COMPREHENSIVE Routine 12/05/2019 15:07 Arthralgia, Results fo r this METABOLIC PANEL (CMP) EDT unspecified joint p rocedure are in the results section. documented in this encounter Results LYME AB (12/05/2019 15:07 EDT) Pathologist Sig nature Lyme Ab IgG NEGATIVE [facility] AB Lyme Ab NEGATIVE [facility] L AB Specimen Blood - Venous blood (substance) Performing Organization Address City/State/ZIP Code Phon e Number [facility] [address] [place] [address] [facility] (ABNORMAL) COMPREHENSIVE METABOLIC PANEL (CMP) (12/05/2019 15:07 EDT) ALBUMIN - [facility] 4.4 3.4 - 4.9 [facility] g/dL [facility] ALKALINE 40 38 - 126 U/L [facility] PHOSPHATASE - [facility] BILIRUBIN TOTAL 0.9 0.2 - 1.3 [facility] mg/dL [facility] BUN - [facility] 11 10 - 26 mg/dL [facility] CALCIUM - [facility] 9.6 8.5 - 10.5 [facility] mg/dL [facility] Chloride 100 96 - 110 [facility] mmol/L [facility] CO2 Total 29 22 - 32 mEq/L [facility] CREATININE 0.72 0.52 - 1.04 [facility] mg/dL [facility] eGFR >60 [facility] Comment: [facility] Chronic renal impairment is defined as GFR <60 Multiply result by 1.210 for patients . eGFR calculated using the IDMS-traceable MDRD Study Equation. ??(effective 05/13/2014) Anion Gap 7 0 - 18 [facility] GLUCOSE - [facility] 102 (H) 70 - 100 [facility] mg/dL [facility] Potassium 4.0 3.5 - 5.0 [facility] mEq/L [facility] Sodium 136 136 - 145 [facility] mEq/L [facility] TOTAL PROTEIN - 7.0 6.2 - 8.2 [facility] gm/dL [facility] SGOT/AST - [facility] 24 14 - 36 U/L [facility] SGPT/ALT - [facility] 15 0 - 35 U/L [facility] Specimen Blood - Venous blood (substance) Performing Organization Address City/State/ZIP Code Phon e Number [facility] [address] LAB (ABNORMAL) LIPID PROFILE (INCLUDES CHOLESTEROL, TRIGLYCERIDES, HDL, LDL) (12/05/2019 15:07 EDT) Triglyceride 78 <150 mg/dL [facility] Comment: [facility] Adult: Normal: ?<150 mg/dl ? Borderline High: 150-199 mg/dl ? High: ?200-499 mg/dl ? Very High: >ba=179 Cholesterol 190 <200 mg/dL [facility] Comment: [facility] Acceptable: ??<200 Borderline: ??200-239 High: ?> or = 240 Chol/HDL Ratio 3.9 0 - 4.5 [facility] Comment: [facility] DESIRABLE RATIO IS LESS THAN 4.1 PATIENTS ARE CONSIDERED AT RISK: WOMEN RATIO >5 MEN RATIO >6 FASTING? - [facility] Unknown [facility] HDL 48 40 - 60 mg/dL [facility] Comment: [facility] ?? Reference Range Low: ? < 40 ??mg/dL Normal: ??40-60 mg/dL High: ?>= 60 mg/dL LDL CHOLESTEROL - 126 (H) 60 - 100 [facility] mg/dL [facility] Non HDL Cholesterol 142 mg/dl [facility] Comment: [facility] Desirable: ?Less than 130 Borderline High: ??130-159 High: ? 160-189 Very High: ?Greater than or equal to 190 Specimen Blood - Venous blood (substance) Performing Organization Address [facility] Phon e Number [facility] [address] [place] [id number] [facility] ANTI NUCLEAR AB (DEVON), IFA (12/05/2019 15:07 EDT) DEVON Interpretation Negative Negative [facility] Comment: [facility] Results were obtained with the Avias[employer] NOVA Lite HEp-2 A NA Kit by indirect immunofluorescence. Test performed or referred by The [address] [address] Specimen Blood - Venous blood (substance) Performing Organization Address City/[facility] Code Phon e Number [facility] [address] [place] [address] [facility] C REACTIVE PROTEIN (12/05/2019 15:07 EDT) Pathologist Sig nature C-Reactive Protein <5.0 <10.0 mg/L [facility] Specimen Blood - Venous blood (substance) Performing Organization Address City/[facility] Phon e Number [facility] [address] [place] [phone] [facility] documented in this encounter Visit Diagnoses Diagnosis Arthralgia, unspecified joint - Primary History of elevated lipids Personal history of other endocrine, met abolic, and immunity disorders documented in this encounter Care Teams Resident Medical Officer Relationship Specialty Start Date End Date Rae Diaz PA PCP - General 06/23/16 [address] [place] [address] documented as of this encounter
--- OUTSIDE RECORDS SUMMARY | 2021-11-09 00:46 | XMS_ITS | Encounter Summary ---
:1975 Author Organization [facility] Address [address] [place] [address] Care Team Providers Name Role Phone HORTENSIA Diaz Primary Care Provider Reason for Visit Reason Comments Cough Encounter Details Date Type Department Care Team Description 04/23/2021 Office Visit [facility] Acute Respiratory Nurse, [facility] Arc Sc reening for viral Clinic disease (Primary Dx) [address] [place] [address] Social History Tobacco Use Types Packs/Day Years [...] making decisions? documented as of this encounter Progress Notes Kendall Coyne RN - 04/23/2021 0930 EDT Covid specimen collected by: GD Patient tolerated well. documented in this encounter Plan of Treatment Upcoming Encounters Date Type Specialty Care Team Description 11/11/2021 Office Visit Rheumatology Frederic Dyer, DIRECTOR RADIO NEWS 130 [facility] [address] [place] [address] 12/25/2021 Appointment Radiology documented as of this encounter Procedures Procedure Name Priority Date/Time Associated Diagnosis Comme nts COVID-19 TESTING STAT 04/23/2021 9:44 EDT Screening for vi ral Results for this disease procedure are i n the results section. documented in this encounter Results COVID-19 TESTING (04/23/2021 9:44 EDT) Performing [facility] Comment: [facility] Please indicate the Triage Tier1 Test performed or referred by The [address] [address] COVID-19 rt-PCR Not Detected Negative [facility] Result Comment: [facility] This test has not been FDA cleared or approved. This t est has been authorized by FDA under an EUA for use by authorized laboratories. This test has been authorized only for detection of nucleic acid from 2019-nCoV, not for any other viruses or pathogens. This test is only authoriz ed for the duration of the declaration that circumstances exist justifying the authorization of emergency use of in vitro diagnostic tests for detection and/or diagnosis of 2019-nCoV under section 564(b)(1) of Act, 21 U.S.C ? 360bbb-3(b) (1), unless the authorization is terminate d or revoked sooner. Negative results do not preclude 2019-nCoV infection a nd should not be used as the sole basis for treatment or other patient management decisions. Negative results must be combined with clinical observations, patient history, and epidemiological information. Performed on the Qritiqr Fusion instrument Specimen Swab - Anterior nares Performing Organization Address City/State/ZIP Code Phon e Number [facility] [address] [place] [address] documented in this encounter Visit Diagnoses Diagnosis Screening for viral disease - Primary Special screening examination for unspec ified viral disease documented in this encounter Care Teams Client Support Analyst Relationship Specialty Start Date End Date Rae Diaz PA PCP - General 06/23/16 [address] [place] [address] documented as of this encounter
--- OUTSIDE RECORDS SUMMARY | 2021-11-09 00:46 | XMS_ITS | Encounter Summary ---
:1975 Author Organization [facility] Address [address] [place] [address] Care Team Providers Name Role Phone HORTENSIA Diaz Primary Care Provider Encounter Details Date Type Department Care Team Description 12/05/2019 Lab Requisition [facility] Outr Resulting Lab, Pathology & Laboratory Provider [facility] [address] [place], [place] [phone] Social History Tobacco Use Types Packs/Day Years [...] 11/11/2021 Office Visit Rheumatology Frederic Dyer , DAIRY FARMER 130 [facility] [address] [address] 12/25/2021 Appointment Radiology documented as of this encounter Procedures Procedure Name Priority Date/Time Associated Diagnosis Comme nts ANTI NUCLEAR AB Routine 12/05/2019 15:07 Results for this (DEVON), IFA EDT procedure are i n the results section. documented in this encounter Results ANTI NUCLEAR AB (DEVON), IFA (12/05/2019 15:07 EDT) Pathologist Sig nature DEVON Interpretation Negative Negative [facility] Specimen Blood - Venous blood (substance) Narrative [facility] - 12/07/2019 14:54 EDT Results were obtained with the [employer]Net NOV A Lite HEp-2 DEVON Kit by indirect immunofluorescence. Performing Organization Address City/State/[facility] Code Phon e Number [facility] [address] [place] [address] SERVICES documented in this encounter Visit Diagnoses Not on filedocumented in this encounter Care Teams Assembler Fishing Floats Relationship Specialty Start Date End Date Rae Diaz PA PCP - General 06/23/[address] [place] [id number] documented as of this encounter
--- OUTSIDE RECORDS SUMMARY | 2021-11-09 00:46 | XMS_ITS | Encounter Summary ---
:1975 Author Organization [facility] Address [address] [place] [address] Care Team Providers Name Role Phone HORTENSIA Diaz Primary Care Provider Reason for Visit Reason Onset Date Comments Results 10/01/2019 COVID19, INFLUENZA A ND RSV RESULTS Encounter Details Date Type Department Care Team Description 10/01/2019 Telephone [facility] - Nneka Sosa RN yamilka (COVID19, [facility] Family Medicine - INFLU NAYELY AND RSV [place] RESULTS) [address] [place] [phone] Social History Tobacco Use Types Packs/Day Years [...] this encounter Miscellaneous Notes Telephone Encounter - Nneka Sosa RN - 10/01/2019 0833 EDT TCT patient, left voicemail as patient identified self on message. Advised negative findings for COVID19, influenza and RSV with a call back if needed. AW documented in this encounter Plan of Treatment Upcoming Encounters Date Type Specialty Care Team Description 11/11/2021 Office Visit Rheumatology Frederic Dyer, BOILER HOUSE MECHANIC 130 [facility] [address] [place] [address] 12/25/2021 Appointment Radiology documented as of this encounter Visit Diagnoses Not on filedocumented in this encounter Care Teams J2Ee Programmer Relationship Specialty Start Date End Date Rae Diaz PA PCP - General 06/23/16 [address] [place] [address] documented as of this encounter
--- OUTSIDE RECORDS SUMMARY | 2021-11-09 00:46 | XMS_ITS | Encounter Summary ---
:1975 Author Organization [facility] Address [address] [place] [address] Care Team Providers Name Role Phone HORTENSIA Diaz Primary Care Provider Reason for Visit Reason Onset Date Comments Medication Management 04/24/2021 Encounter Details Date Type Department Care Team Description 04/24/2021 Telephone [facility] Nichole Salazar, Medication Management [facility] CLIENT SERVICE PROFESSIONAL [address] [facility] [address] [place] [address] [phone] [place] [address] Social History Tobacco Use Types Packs/Day Years [...] Sig Dispensed Refills Start Date End Date guaiFENesin-codeine Take 5-10ml by mouth 100 mL 0 2020 (GUAIFENESIN AC) 100-10 at bedtime as needed mg/5 mL liquidIndications: for cough Cough benzonatate (TESSALON) 100 Take 1-2 caps by 30 capsule 0 mg capsuleIndications: mouth three times Cough daily as needed for cough documented in this encounter Miscellaneous Notes Telephone Encounter - Nichole Salazar APRN - 04/24/2021 0901 EDT Patient called and notes respiratory symptoms for the past 2 to 3 days. 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 She notes that cough is semiproductive with coughing spasms, feeling wheezy and tight in the chest with burning. T-max 99.5 Fahrenheit, chills andsweats. She is requesting Tessalon and guaifenesin codeine cough syrup for cough management. She denies chest pain or dizziness, no history of reactive airway disease though she does have an albuterol inhaler to use as needed with respiratory illness for management of shortness of breath and wheeze. We discussed follow-up precautions in detail, she demonstrates good understanding. documented in this encounter Plan of Treatment Upcoming Encounters Date Type Specialty Care Team Description 11/11/2021 Office Visit Rheumatology Frederic Dyer APRN 130 [facility] [address] [place] [address] 12/25/2021 Appointment Radiology documented as of this encounter Visit Diagnoses Diagnosis Cough - Primary documented in this encounter Care Teams Speech Language Pathologist Prn Relationship Specialty Start Date End Date Rae Diaz PA PCP - General 06/23/[address] [place] [address] documented as of this encounter
--- OUTSIDE RECORDS SUMMARY | 2021-11-09 00:46 | XMS_ITS | Encounter Summary ---
:1975 Author Organization [facility] Address [address] [place] [address] Care Team Providers Name Role Phone HORTENSIA Diaz Primary Care Provider Reason for Visit Reason Comments Cough Encounter Details Date Type Department Care Team Description 04/26/2021 Office Visit [facility] [place] Respiratory Nurse, [facility] Arc Sc reening for viral Clinic disease (Primary Dx) [address] [place], [place] [phone] Social History Tobacco Use Types Packs/Day Years [...] encounter Progress Notes Kendall Coyne RN - 04/26/2021 1100 EDT Symptomatic employee documented in this encounter Plan of Treatment Upcoming Encounters Date Type Specialty Care Team Description 11/11/2021 Office Visit Rheumatology Frederic Dyer, STEEL WOOL MACHINE OPERATOR 130 [facility] [address] [place] [address] 12/25/2021 Appointment Radiology Scheduled Orders Name Type Priority Associated Diagnoses Order S mary COVID-19 TESTING Microbiology STAT Screening for viral Orde red: 04/26/2021 disease INFLUENZA A AND B,RSV Microbiology STAT Screening for viral Ordered: 04/26/2021 PCR disease documented as of this encounter Visit Diagnoses Diagnosis Screening for viral disease - Primary Special screening examination for unspec ified viral disease documented in this encounter Care Teams Customer Sales Consultant Relationship Specialty Start Date End Date Rae Diaz PA PCP - General 06/23/[address] [place] [id number] documented as of this encounter
--- OUTSIDE RECORDS SUMMARY | 2021-11-09 00:46 | XMS_ITS | Encounter Summary ---
:1975 Author Organization [facility] Address [address] [place] [address] Care Team Providers Name Role Phone HORTENSIA Diaz Primary Care Provider Encounter Details Date Type Department Care Team Description 07/20/[address] [facility] [place] - [facility] Rae Diaz PA Lab - Main [place] [address] [facility] [address] [place] [address] [place] [address] [phone] Social History Tobacco Use Types Packs/Day Years [...] Description 11/11/2021 Office Visit Rheumatology Frederic Dyer, FILM CASTING OPERATOR [address] [facility] [address] [place] [address] 12/25/2021 Appointment Radiology documented as of this encounter Procedures Procedure Name Priority Date/Time Associated Comments Diagnosis TRICHOMONAS PCR Routine 07/20/2019 14:18 Results for this EST procedure are i n the results section. HUMAN PAPILLOMAVIRUS Routine 07/20/2019 11:30 Res ults for this (HPV) DETECTION-HIGH EST procedu re are in RISK TYPES the results section. PAP TEST Routine 07/20/2019 Results for thi s procedure are i n the results section. documented in this encounter Results TRICHOMONAS PCR - [facility] (07/20/2019 14:18 EST) TRICHOMONAS PCR, POCT NOT DETECTED NOT DETECTED [facility] Specimen Performing Organization Address [facility] Phon e Number [facility] [address] [place], [place] [id number] [place] [address] LAB HUMAN PAPILLOMAVIRUS (HPV) DETECTION-HIGH RISK TYPES (07/20/2019 11:30 EST) Human Papillomavirus NEG [facility] (HPV) Detection-High Comment: [facility] Types Negative for HPV types 16, 18, 31, 33, 35, 39, 45, 51, 52, 56, 58, 59, 66, 68. Method: Cervista HPV HR (High Risk) DNA test. Specimen Performing Organization Address [facility] Phon e Number [facility] [address] [place] [address] [facility] PAP TEST (07/20/2019) Specimen Narrative [facility] - 020 14:45 EST Name: NORA BOOGIE ?: [birth year] ?Age/Sex: 44/F ?Unit#: [id number] ? Loc: LAB.THC ? Status: REG REF ?? Reg Date: 07/20/19 ? Pt.Phone Number : ? Specimen: [id number] ? STA TUKilo: SOUT ?Spec Date:07/20/19 ? Physician Copies: ?Rae Diaz Tissues: ? Cervical/Endo Pap ? CPT: 59618 ?? Units: ??1 ? CYTOLOGY DIAGNOSIS SPECIMEN ADEQUACY: ?Satisfactory for evaluation. Transformation zone component present. GENERAL CATEGORIZATION: ?Negative fo r Intraepithelial Lesion or Malignancy DESCRIPTIVE DIAGNOSIS: ? Negative fo r Intraepithelial Lesion or Malignancy. ?HPV DNA RESULTS ? LABORATORY ?? Date ? Time Test ?Result ?? Flag ?Normal Range ?? 07/20/19 1130 HPV DNA RESULT ??NEG ? Negative for HP V types 16, 18, 31, 33, 35, 39, 45, 51, 52, ? 56, 58, 59, 66, 68. ? Method: Cervist a HPV HR (High Risk) DNA test. ORDER QUERIES: LMP: ? - ? Post ?PREVIOUS ATYPICAL: ?? BCP/HRT? ?? Rad Rx? ?? IUD?PAP PL US HPV? Y ??REFLEX TO HR-HPV IF ASCUS ?? REFLEX TO HPV 16/18 IF HPV POS/PAP NEG Y HPV REGARDLESS?RFLX HPV IF LSIL ?? Signed Aniket vich,M CT(ASCP) 07/26/19 By the signature above, the attending ph ysician certifies that he/she has personally conducted a gross and/or microscopic exa mination of the described specimens and rendered or confirmed the above diagnosi s. Test Performed by [facility], [address] [place] [id number] Instrumentation Manager: Priya Sanders MD PHD Performing Organization Address City/State/ZIP Code Phon e Number [facility] [address] [place] [address] LAB documented in this encounter Visit Diagnoses Not on filedocumented in this encounter Care Teams Film Casting Operator Relationship Specialty Start Date End Date Rae Diaz PA PCP - General 06/23/[address] [place] [id number] documented as of this encounter
--- OUTSIDE RECORDS SUMMARY | 2021-11-09 00:46 | XMS_ITS | Encounter Summary ---
:[address] [facility] [place] Address [address] [place] [address] Care Team Providers Name Role Phone HORTENSIA Diaz Primary Care Provider Reason for Visit Reason Comments Cough Encounter Details Date Type Department Care Team Description 09/26/2019 Nurse Only [facility] Enco unter for screening for other viral diseases (Primary Dx); [facility] Testing Cough - [facility] - Mobile Testing Department [address] [place] [address] Social History Tobacco Use Types Packs/Day Years [...] documented as of this encounter Progress Notes Zaida Arias RN - 09/26/2019 1340 EDT Reason for visit ??? Covid 19 Screening Provider order ??? C-19 testing has been recommended and ordered by the provider Provider ordering - Mel Stockton MD Brief HPI (phone note) ??? 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 Education ??? Patient offered Covid counseling and was provided with Covid home instructions. Brief Assessment- Patient in no acute distress and tolerated testing well. Date of Service ??? 3/18/20 Nurse performing swab/service today ??? Ammy Galvez, RN Provider on site today - Herlinda Whitaker MD Diagnosis / code ??? Screening for other viral disease, Z11.59 and Cough, R05 Nurse Encounter charge [id number] documented in this encounter Plan of Treatment Upcoming Encounters Date Type Specialty Care Team Description 11/11/2021 Office Visit Rheumatology Frederic Dyer , TEAR DOWN MATCHER [address] [facility] [address] [place], [place] [phone] 12/25/2021 Appointment Radiology documented as of this encounter Visit Diagnoses Diagnosis Encounter for screening for other viral diseases - Primary Cough documented in this encounter Care Teams Digital Marketing Manager Relationship Specialty Start Date End Date Rae Diaz PA PCP - General 06/23/16 [address] [place] [address] documented as of this encounter
--- OUTSIDE RECORDS SUMMARY | 2021-11-09 00:46 | XMS_ITS | Encounter Summary ---
:1975 Author Organization [facility] Address [address] [place] [address] Care Team Providers Name Role Phone HORTENSIA Diaz Primary Care Provider Encounter Details Date Type Department Care Team Description 09/29/2019 Orders Only [facility] [place] Bateman jan Cough (Primary Dx) [facility] - HORTENSIA Mclaughlin-C [address] [place], [place] [address] [place] [address] Road [address] [place] [address] Social History Tobacco Use Types Packs/Day Years [...] Description 11/11/2021 Office Visit Rheumatology Frederic Dyer, HAND GLUER AND SLICER [address] [facility] [address] [place] [address] 12/25/2021 Appointment Radiology documented as of this encounter Visit Diagnoses Diagnosis Cough - Primary documented in this encounter Care Teams Apiarist Relationship Specialty Start Date End Date Rae Diaz PA PCP - General 06/23/16 [address] [place] [address] documented as of this encounter
--- OUTSIDE RECORDS SUMMARY | 2021-11-09 00:46 | XMS_ITS | Encounter Summary ---
:1975 Author Organization [facility] Address [address] [place] [address] Care Team Providers Name Role Phone HORTENSIA Diaz Primary Care Provider Encounter Details Date Type Department Care Team Description 08/29/2019 Results Only Imaging [facility] - Nathalia Diaz, [facility] Radiology Resul ts PA [address] [place] [address] [place], [place] [phone] Social History Tobacco Use Types Packs/Day Years [...] Description 11/11/2021 Office Visit Rheumatology Frederic Dyer, CONDOMINIUM ASSOCIATION MANAGER [address] [facility] [address] [place] [address] 12/25/2021 Appointment Radiology documented as of this encounter Procedures Procedure Name Priority Date/Time Associated Diagnosis Comme nts MA BREAST SCREENING 08/29/2019 9:07 Resu lts for this JEANNIE BILATERAL EST procedure are in the results section. documented in this encounter Results MA BREAST SCREENING JEANNIE BILATERAL (08/29/2019 9:07 EST) Specimen Narrative [facility] RADIOLOGY - 08/29/2019 9:07 EST ? EXAM: MAMMOGRAM/MAMMO BILATERAL SCREEN W ??EX. D/ (1420) ? CLINICAL INFORMATION: ? Z12.31 SCREENING BASELINE ? INDICATION: Z12.31 SCREENING BASE LINE SCREENING BASELINE ? COMPARISON: ??None. Baseline stud y. ? TECHNIQUE: ??Full field digital w hole breast 2D (C-view) and 3D CC and ? MLO views of both breasts were ob tained. CAD technology was utilized. ? FINDINGS: The fibroglandular marley erns of the breasts are normal. ? There is no mammographic evidence of cancer. As there are no previous ? studies for comparison it would b e advisable for the patient to have ? another mammogram in one year to be certain the breasts are stable. ? There are scattered areas of fibr oglandular density. ? FINAL ASSESSMENT: ??BILATERAL SHANNAN AST - ??Category 1 - Negative. Routine ? mammographic follow-up is recomme nded. ? These results will be communicate d to your patient via a lay letter ? from Radiology. ??If any addition al imaging is needed we will contact ? your patient directly. ? REPORT SIGNED IN OTHER VENDOR SYSTEM 08/29/2019 ?Reported B y: Ruy Wheeler MD ? CC: ? Transcribed Date/Time: 08/29/2019 (0907) ? Stock Preparer: ? Printed Date/Time: 08/29/2019 (09 41) ? PAGE 1 ? Bertha d Report ? Procedure Note Ruy Wheeler MD - 08/29/2019 EXAM: MAMMOGRAM/MAMMO BILATERAL SCR EEN W EX. D/ (1420) CLINICAL INFORMATION: Z12.31 SCREENING BASELINE INDICATION: Z12.31 SCREENING BASELI NE SCREENING BASELINE COMPARISON: None. Baseline study. TECHNIQUE: Full field digital whol e breast 2D (C-view) and 3D CC and MLO views of both breasts were obta ined. CAD technology was utilized. FINDINGS: The fibroglandular patter ns of the breasts are normal. There is no mammographic evidence o f cancer. As there are no previous studies for comparison it would be advisable for the patient to have another mammogram in one year to be certain the breasts are stable. There are scattered areas of fibrog landular density. FINAL ASSESSMENT: BILATERAL BREAST - Category 1 - Negative. Routine mammographic follow-up is recommend ed. These results will be communicated to your patient via a lay letter from Radiology. If any additional imaging is needed we will contact your patient directly. REPORT SIGNED IN OTHER VENDOR SYSTEM 08/29/2019 Reported By: Sherita Wheeler MD CC: Transcribed Date/Time: 08/29/2019 ( 0907) Stock Preparer: Printed Date/Time: 08/29/2019 (9234 ) PAGE 1 Signed Report Performing Organization Address City/State/ZIP Code Phon e Number RADIOLOGY documented in this encounter Visit Diagnoses Not on filedocumented in this encounter Care Teams Office Specialist Relationship Specialty Start Date End Date Rae Diaz PA PCP - General 06/23/16 [address] [place] [address] documented as of this encounter
--- OUTSIDE RECORDS SUMMARY | 2021-11-09 00:46 | XMS_ITS | Encounter Summary ---
:1975 Author Organization [facility] Address [address] [place] [address] Care Team Providers Name Role Phone HORTENSIA Diaz Primary Care Provider Encounter Details Date Type Department Care Team Description 12/18/2019 Results Only Imaging [facility] - Nathalia Diaz, [facility] Radiology Resul ts PA [address] [place] [address] [place], [place] [phone] Social History Tobacco Use Types Packs/Day Years [...] Description 11/11/2021 Office Visit Rheumatology Frederic Dyer, STRIPER MACHINE [address] [facility] [address] [place] [address] 12/25/2021 Appointment Radiology documented as of this encounter Procedures Procedure Name Priority Date/Time Associated Comments Diagnosis XR RHEUMATOID HANDS 12/18/2019 13:50 Resu lts for this EDT procedure are i n the results section. documented in this encounter Results XR RHEUMATOID HANDS (12/18/2019 13:50 EDT) Specimen Narrative [facility] - 12/18/2019 13:50 EDT ? EXAM: RADIOLOGY EXPRESS CARE/EXP CARE RHE EX. D/ (1342) ? CLINICAL INFORMATION: ? M25.54, BILATERAL HAND PAIN. ? INDICATION: M25.54, BILATERAL BUSBY D PAIN. BILATERAL HANDS ? TECHNIQUE: ??2 views of both hand s. ? COMPARISON: None. ? FINDINGS: The bony alignment and mineralization are normal. No acute ? osseous abnormality is detected. The joint spaces are preserved. No ? erosive changes are identified. ? IMPRESSION: ? Normal radiographs. No osseous or articular abnormality detected. ? REPORT SIGNED IN OTHER VENDOR SYSTEM 12/18/2019 ?Reported B y: Edil Ramirez MD ? CC: ? Transcribed Date/Time: 12/18/2019 (1350) ? Perfume And Toilet Water Maker: ? Printed Date/Time: 12/18/2019 (13 50) ? PAGE 1 ? Bertha d Report ? Procedure Note Edil Ramirez MD - 12/18/2019 EXAM: RADIOLOGY EXPRESS CARE/EXP CA RE RHE EX. D/ (1342) CLINICAL INFORMATION: M25.54, BILATERAL HAND PAIN. INDICATION: M25.54, BILATERAL HAND PAIN. BILATERAL HANDS TECHNIQUE: 2 views of both hands. COMPARISON: None. FINDINGS: The bony alignment and mi neralization are normal. No acute osseous abnormality is detected. Th e joint spaces are preserved. No erosive changes are identified. IMPRESSION: Normal radiographs. No osseous or a rticular abnormality detected. REPORT SIGNED IN OTHER VENDOR SYSTEM 12/18/2019 Reported By: Edil Ramirez MD CC: Transcribed Date/Time: 12/18/2019 ( 9715) Perfume And Toilet Water Maker: Printed Date/Time: 12/18/2019 (1325 ) PAGE 1 Signed Report Performing Organization Address City/State/ZIP Code Phon e Number [facility] RADIOLOGY documented in this encounter Visit Diagnoses Not on filedocumented in this encounter Care Teams Fitness Plan Coordinator Relationship Specialty Start Date End Date Rae Diaz PA PCP - General 06/23/16 [address] [place] [address] documented as of this encounter
--- OUTSIDE RECORDS SUMMARY | 2021-11-09 00:47 | XMS_ITS | Encounter Summary ---
:1975 Author Organization [facility] Address [address] [place] [address] Care Team Providers Name Role Phone Unknown, Primary Care Provider HORTENSIA Diaz Primary Care Provider Encounter Details Date Type Department Care Team Description 06/24/2011 Historical Results Only [facility] - Mary Francis, [facility] Lab - Main [facility] [address] [place] [address] [place], [place] [phone] Social History Tobacco Use Types Packs/Day Years Used Date Never Assessed Sex Assigned at Date Recorded Not on file documented as of this encounter Plan of Treatment Upcoming Encounters Date Type Specialty Care Team Description 11/11/2021 Office Visit Rheumatology Frederic Dyer, CERTIFIED LACTATION COUNSELOR [address] [facility] [address] [place] [address] 12/25/2021 Appointment Radiology documented as of this encounter Procedures Procedure Name Priority Date/Time Associated Diagnosis Comme [facility] SURGICAL PATHOLOGY Routine 06/24/2011 Results f or this procedure are i n the results section . documented in this encounter Results SURGICAL PATHOLOGY (06/24/2011) Specimen Narrative [facility] - 011 16:27 EST Name: NORA BOOGIE ?: [birth year] ?Age/Sex: 44/F ?Unit#: [id number] ? Loc: LAB.OPX ? Status: REG REF ?? Reg Date: 06/24/11 ? Pt.Phone Number : ? Specimen: [id number] ? STA TUS: SOUT ?Spec Date:06/24/11 ? Physician Copies: ?Gemma Francis MD ?? Tissues: A ?? Skin, other than cyst (LEF T SHOULDER) ? CPT: 54317 ?? Units: ??1 ?FINAL DIAGNOSIS ? Skin of the shoulder, left, punch biopsy; ? - Dermal blue nevus. ? GROSS DESCRIPTION ? Received in formalin and labeled dark lesion of the shoulder is a 6 mm punch ? biopsy, bisected and entirely sub mitted. ??BT ?? PREOP DX/CLINICAL HISTORY ?CHANGING DARK LESION, LEF T SHOULDER Signed ____(signature on file)____ Geronimo Shahid M.D. 06/28/11 ?? By the signature above, the attending ph ysician certifies that he/she has personally conducted a gross and/or microscopic exa mination of the described specimens and rendered or confirmed the above diagnosi s. Test Performed by [facility], [address] [place] [id number] Glue Wheel Operator: Priya Sanders MD PHD Performing Organization Address City/State/ZIP Code Phon e Number [facility] [address] [place] [address] LAB documented in this encounter Visit Diagnoses Not on filedocumented in this encounter Care Teams Gas Station Cashier Relationship Specialty Start Date End Date Unknown, Evert, PCP - General 10/01/13 06/22/16 Rae Diaz PA PCP - General 06/23/[address] [place] [address] documented as of this encounter
--- OUTSIDE RECORDS SUMMARY | 2021-11-09 00:47 | XMS_ITS | Encounter Summary ---
:1975 Author Organization [facility] Address [address] [place] [address] Care Team Providers Name Role Phone HORTENSIA Diaz Primary Care Provider Encounter Details Date Type Department Care Team Description 07/07/2016 Historical Results Only [facility] - Rachael Diaz, [place] [facility] Lab - Main [facility] [address] [place] [address] [place], [place] [phone] Social History Tobacco Use Types Packs/Day Years [...] Description 11/11/2021 Office Visit Rheumatology Frederic Dyer, ELECTRONICS ASSEMBLER [address] [facility] [address] [place] [address] 12/25/2021 Appointment Radiology documented as of this encounter Procedures Procedure Name Priority Date/Time Associated Comments Diagnosis VITAMIN D 25 POC - [facility] Routine 07/07/2016 13:10 Results for this EST procedure are i n the results section. HUMAN PAPILLOMAVIRUS Routine 07/07/2016 9:56 Res ults for this (HPV) DETECTION-HIGH EST procedu re are in RISK TYPES the results section. PAP TEST Routine 07/07/2016 Results for thi s procedure are i n the results section. documented in this encounter Results VITAMIN D 25 POC - [place] [facility] (07/07/2016 13:10 EST) Pathologist Sig nature VIT D, 25 HYDROXY - 37 30 - 100 NG/ML [facility] Specimen Performing Organization Address [facility] Phon e Number [facility] [address] [place], [place] [id number] [place] [address] LAB HUMAN PAPILLOMAVIRUS (HPV) DETECTION-HIGH RISK TYPES (07/07/2016 9:56 EST) Human Papillomavirus NEG [facility] (HPV) Detection-High Comment: [facility] Types Negative for HPV types 16, 18, 31, 33, 35, 39, 45, 51, 52, 56, 58, 59, 66, 68. Method: Cervista HPV HR (High Risk) DNA test. Specimen Performing Organization Address [facility] Phon e Number [facility] [address] [place] [address] [facility] PAP TEST (07/07/2016) Specimen Narrative [facility] - 017 14:51 EST Name: NORA BOOGIE ?: [birth year] ?Age/Sex: 43/F ?Unit#: [id number] ? Loc: LAB.THC ? Status: REG REF ?? Reg Date: 07/07/16 ? Pt.Phone Number : ? Specimen: [id number] ?STA AURY: SOUT ?Spec Date:07/07/16 ? Physician Copies: ?Rae Diaz Tissues: ? Cervical/Endo Pap ? CPT: 51344 ?? Units: ??1 ? CYTOLOGY DIAGNOSIS SPECIMEN ADEQUACY: ?Satisfactory for evaluation. Transformation zone component present. GENERAL CATEGORIZATION: ?Epithelial Cell Abnormality. DESCRIPTIVE DIAGNOSIS: ??Squamous cell A bnormality - ? Atypical squamous cells - undeter mined significance. RECOMMENDATIONS/COMMENTS: ??Recommend shannen garrison the Updated consensus guidelines algorithms for managing abnormal cervical cancer sc reening tests and cancer precursors Management algorithms have been distributed and are also available online at www.ASCCP.org/consensus.shtml. ?HPV DNA RESULTS ?? 07/07/16 0956 HPV DNA RESULT ??NEG ? Negative for HP V types 16, 18, 31, 33, 35, 39, 45, 51, 52, ? 56, 58, 59, 66, 68. ? Method: Cervist a HPV HR (High Risk) DNA test. ORDER QUERIES: LMP: ? - ? Post ?PREVIOUS ATYPICAL: Y BCP/HRT? ?? Rad Rx? ?? IUD? Y ??PAP PLU S HPV? Y ??REFLEX TO HR-HPV IF ASCUS Y REFLEX TO HPV 16/18 IF HPV POS/PAP NEG Y HPV REGARDLESS? Y ??RFLX HPV IF LSIL ?? Signed ____(signature on file)____ Purvi Hutchins M.D. 07/14/16 ? By the signature above, the attending ph ysician certifies that he/she has personally conducted a gross and/or microscopic exa mination of the described specimens and rendered or confirmed the above diagnosi s. Test Performed by [facility], [address] [place], [place] [id number] Predator Control Trapper: Priya Sanders MD PHD Performing Organization Address City/State/ZIP Code Phon e Number [facility] [address] [place] [address] LAB documented in this encounter Visit Diagnoses Not on filedocumented in this encounter Care Teams Police Manager Relationship Specialty Start Date End Date Rae Diaz PA PCP - General 06/23/16 [address] [place] [address] documented as of this encounter
--- OUTSIDE RECORDS SUMMARY | 2021-11-09 00:47 | XMS_ITS | Encounter Summary ---
:1975 Author Organization [facility] Address [address] [place] [address] Care Team Providers Name Role Phone Candelaria, Primary Care Provider HORTENSIA Diaz Primary Care Provider Encounter Details Date Type Department Care Team Description 09/04/2013 Historical Results Only [facility] - Alton Alas MD [facility] - Main [address] [phone] Social History Tobacco Use Types Packs/Day Years Used Date Never Assessed Sex Assigned at Date Recorded Not on file documented as of this encounter Plan of Treatment Upcoming Encounters Date Type Specialty Care Team Description 11/11/2021 Office Visit Rheumatology Frederic Dyer, INSPECTOR CRYSTAL [address] [facility] [address] [place] [address] 12/25/2021 Appointment Radiology documented as of this encounter Procedures Procedure Name Priority Date/Time Associated Diagnosis Comme nts PAP TEST Routine 09/04/2013 10:34 EST Results for this procedure are i n the results section . documented in this encounter Results PAP TEST (09/04/2013 10:34 EST) Specimen Narrative [facility] - 014 14:02 EST Name: NORA BOOGIE ?: [birth year] ?Age/Sex: 44/F ?Unit#: [id number] ? Loc: LAB.OPX ? Status: REG REF ?? Reg Date: 09/04/13 ? Pt.Phone Number : ? Specimen: [id number] ?LESLIE JEFFERS: SOUT ?Spec Date:09/04/13 ? Physician Copies: ?Alton Bentley MD ?? Tissues: ? VAG/CERV PAP ? CPT: 69011 ?? Units: ??1 ? CYTOLOGY DIAGNOSIS SPECIMEN ADEQUACY: ?Satisfactory for evaluation. Transformation zone component present. GENERAL CATEGORIZATION: ?Epithelial Cell Abnormality. DESCRIPTIVE DIAGNOSIS: ??Squamous cell A bnormality - ?Atypical squamous cells - undetermine d significance (ASC-US). RECOMMENDATIONS/COMMENTS: ??Recommend shannen garrison the Updated consensus guidelines algorithms for managing abnormal cervical cancer sc reening tests and cancer precursors Management algorithms have been distributed and are also available online at www.ASCCP.org/consensus.shtml. ?HPV DNA RESULTS ?? 09/04/13 1126 HPV DNA RESULT ??POS ? Positive for on e or more of HPV types 16, 18, 31, 33, 35, ? 39, 45, 51, 52, 56, 58, 59, 66, or 68. ? Method: Cervist a HPV HR (High Risk) DNA test. ORDER QUERIES: LMP: 08/08/13- ?Preg nant? ?? Post ?PREVIOUS ATYPICAL: ?? BCP/HRT? ?? Rad Rx? ?? IUD?PAP PL US HPV? Y ??REFLEX TO HR-HPV IF ASCUS ?? REFLEX TO HPV 16/18 IF HPV POS/PAP NEG ?? HPV REGARDLESS?RFLX HPV IF LSIL ?? Signed ____(signature on file)____ Priya Landa M.D. 09/09/13 By the signature above, the attending ph ysician certifies that he/she has personally conducted a gross and/or microscopic exa mination of the described specimens and rendered or confirmed the above diagnosi s. Test Performed by [facility], [address] [place] [address] Natural Resource Technician: Priya Sanders MD PHD Performing Organization Address City/State/[facility] Code Phon e Number [facility] [address] [place], [place] [phone] [place] [address] LAB documented in this encounter Visit Diagnoses Not on filedocumented in this encounter Care Teams Screen Making Supervisor Relationship Specialty Start Date End Date Unknown, Provider, PCP - General 10/01/13 06/22/16 Rae Diaz PA PCP - General 06/23/16 [address] [place] [address] documented as of this encounter
--- OUTSIDE RECORDS SUMMARY | 2021-11-09 00:47 | XMS_ITS | Encounter Summary ---
:1975 Author Organization [facility] Address [address] [place] [address] Care Team Providers Name Role Phone Candelaria, Primary Care Provider HORTENSIA Diaz Primary Care Provider Encounter Details Date Type Department Care Team Description 08/08/2012 Historical Results Only [facility] - Alton Alas MD [facility] Lab - Main [address] [phone] Social History Tobacco Use Types Packs/Day Years Used Date Never Assessed Sex Assigned at Date Recorded Not on file documented as of this encounter Plan of Treatment Upcoming Encounters Date Type Specialty Care Team Description 11/11/2021 Office Visit Rheumatology Frederic Dyer, CORD SPLICER [address] [facility] [address] [place] [address] 12/25/2021 Appointment Radiology documented as of this encounter Procedures Procedure Name Priority Date/Time Associated Diagnosis Comme nts PAP TEST Routine 08/08/2012 Results for thi s procedure are in the resu lts section. documented in this encounter Results PAP TEST (08/08/2012) Specimen Narrative [facility] - 013 12:14 EST Name: NORA BOOGIE ?: [birth year] ?Age/Sex: 44/F ?Unit#: [id number] ? Loc: LAB.OPX ? Status: REG REF ?? Reg Date: 08/08/12 ? Pt.Phone Number : ? Specimen: [id number] ? LESLIE JEFFERS: SOUT ?Spec Date:08/08/12 ? Physician Copies: ?Alton Bentley MD ?? Tissues: ? Cervical/Endo Pap ? CPT: 44734 ?? Units: ??1 ? CYTOLOGY DIAGNOSIS SPECIMEN ADEQUACY: ?Satisfactory for evaluation. Transformation zone component present. GENERAL CATEGORIZATION: ?Negative fo r Intraepithelial Lesion or Malignancy DESCRIPTIVE DIAGNOSIS: ? Negative fo r Intraepithelial Lesion or Malignancy. RECOMMENDATIONS/COMMENTS: ?None. ORDER QUERIES: LMP: 07/24/12- ?Preg nant? N Post ? N ??PREVIOUS ATYPICAL: N BCP/HRT? ?? Rad Rx? ?? IUD? Y ??PAP PLU S HPV? N ??REFLEX TO HR-HPV IF ASCUS ?? REFLEX TO HPV 16/18 IF HPV POS/PAP NEG ?? HPV REGARDLESS?RFLX HPV IF LSIL ?? IF ASCUS DO HPV? Y Signed Kim sarah,N CT(ASCP) 08/11/12 By the signature above, the attending ph ysician certifies that he/she has personally conducted a gross and/or microscopic exa mination of the described specimens and rendered or confirmed the above diagnosi s. Test Performed by [facility], [address] [place], [place] [id number] Animal Pathology Teacher: Priya Sanders MD PHD Performing Organization Address City/State/ZIP Code Phon e Number [facility] [address] [place] [address] [facility] documented in this encounter Visit Diagnoses Not on filedocumented in this encounter Care Teams Physician Recruiter Relationship Specialty Start Date End Date Unknown, Provider, PCP - General 10/01/13 06/22/16 Rae Diaz PA PCP - General 06/23/16 [address] [place], [place] [phone] documented as of this encounter
--- OUTSIDE RECORDS SUMMARY | 2021-11-09 00:47 | XMS_ITS | Encounter Summary ---
:1975 Author Organization [facility] Address [address] [place] [address] Care Team Providers Name Role Phone Unknown, Primary Care Provider HORTENSIA Diaz Primary Care Provider Encounter Details Date Type Department Care Team Description 10/23/2013 Historical Results [facility] - Elena Trinidad, Only [facility] [place] [facility] [address] [place] [address] [address], [address] [place] [address] Social History Tobacco Use Types Packs/Day Years Used Date Never Assessed Sex Assigned at Date Recorded Not on file documented as of this encounter Plan of Treatment Upcoming Encounters Date Type Specialty Care Team Description 11/11/2021 Office Visit Rheumatology Frederic Dyer, BOOM SUPERVISOR [address] [facility] [address] [place] [address] 12/25/2021 Appointment Radiology documented as of this encounter Procedures Procedure Name Priority Date/Time Associated Diagnosis Comme nts SURGICAL PATHOLOGY Routine 10/23/2013 Results f or this procedure are i n the results section . documented in this encounter Results SURGICAL PATHOLOGY (10/23/2013) Specimen Narrative [facility] - 014 14:10 EDT PREOP CERVICAL DYSPLASIA Procedure: LEEP Tissue Removed 1)LEEP, 2)ECC LMP: Prev.Abn Pap: 10/03/13 Name: NORA BOOGIE ?: [birth year] ?Age/Sex: 44/F ?Unit#: [id number] ? Loc: AGO ? Status: REG POV ?? Reg Date: 10/23/13 ? Pt.Phone Number : ? Specimen: [id number] ? LESLIE JEFFERS: SOUT ?Spec Date:10/23/13 ? Physician Copies: ?Elena Trinidad MD ?? Tissues: A ?? Female Reproductive System (CERVIX (LEEP)) ? Alton Bentley MD ? B ?? Female Reproductive Sy stem (ENDOCERVIX) ? CPT: 00872 ?? Units: ??1 ? 02866 ? 1 ?FINAL DIAGNOSIS ? A. Cervix, LEEP biopsy; ? - Low grade squamous intraepithel ial lesion (PATRICK I), borderline changes. ? - No residual high grade lesion i dentified. ? - Endocervical and ectocervical m argins interpreted as negative for dysplasia. ? B. Endocervix, curettage; ? - Fragments of benign endocervica l glandular and squamous mucosa. ?COMMENT ? Low grade dysplasia is appreciated in t he LEEP biopsy specimen. ??No residual high grade dysplasia is found. ??Multip le levels were examined. ??Correlation is made with previous cytology and biopsy material ([id number] and [id number]). ? GROSS DESCRIPTION ? A. Received in formalin labeled w ith the patient's name and LEEP are two ? irregular pink-oakley soft tissue fr agments. ??The smaller is 0.6 x 0.4 x 0.2 cm. ? This is bisected and completely s ubmitted in block A1. ??The second piece is ? likewise irregular and measures 1 .2 x 0.7 x 0.2 cm. ??This piece is serially ? sectioned and submitted blocks A2 -A4. ??e.s. 4. ? B. Received in formalin labeled w ith the patient's name and ECC are mucoid ? red-oakley soft tissue fragments in an aggregate measuring approximately 1 x 0.6 x ? 0.2 cm. ??e.s. 1. ??RM ?? PREOP DX/CLINICAL HISTORY ?Cervical dysplasia Signed ____(signature on file)____ Priya Landa M.D. 10/25/13 By the signature above, the attending ph ysician certifies that he/she has personally conducted a gross and/or microscopic exa mination of the described specimens and rendered or confirmed the above diagnosi s. Test Performed by [facility], [address] [place] [address] Towel Hemmer: Priya Sanders MD PHD Performing Organization Address City/State/ZIP Code Phon e Number [facility] [phone] [place] [address] LAB documented in this encounter Visit Diagnoses Not on filedocumented in this encounter Care Teams Tobacco Sorter Relationship Specialty Start Date End Date Unknown, Provider, PCP - General 10/01/13 06/22/16 Rae Diaz PA PCP - General 06/23/[address] [place] [address] documented as of this encounter
--- OUTSIDE RECORDS SUMMARY | 2021-11-09 00:47 | XMS_ITS | Encounter Summary ---
:1975 Author Organization [facility] Address [address] [place] [address] Care Team Providers Name Role Phone Unknown, Primary Care Provider HORTENSIA Diaz Primary Care Provider Encounter Details Date Type Department Care Team Description 09/05/2014 Historical Results Only [facility] - Rachael Diaz, [facility] [address] [place] [address] [place], [place] [phone] Social History Tobacco Use Types Packs/Day Years Used Date Never Assessed Sex Assigned at Date Recorded Not on file documented as of this encounter Plan of Treatment Upcoming Encounters Date Type Specialty Care Team Description 11/11/2021 Office Visit Rheumatology Frederic Dyer, HOSPITALITY HOUSEKEEPER [address] [facility] [address] [place] [address] 12/25/2021 Appointment Radiology documented as of this encounter Procedures Procedure Name Priority Date/Time Associated Diagnosis Comme nts PAP TEST Routine 09/05/2014 9:48 EST Results for this procedure are i n the results section . documented in this encounter Results PAP TEST (09/05/2014 9:48 EST) Specimen Narrative [facility] - 015 13:49 EST Name: NORA BOOGIE ?: [birth year] ?Age/Sex: 43/F ?Unit#: [id number] ? Loc: LAB.OPX ? Status: REG REF ?? Reg Date: 09/05/14 ? Pt.Phone Number : ? Specimen: [id number] ? LESLIE JEFFERS: SOUT ?Spec Date:09/05/14 ? Physician Copies: ?Rae Diaz Tissues: ? Cervical/Endo Pap ? CPT: 33924 ?? Units: ??1 ? CYTOLOGY DIAGNOSIS SPECIMEN ADEQUACY: ?Satisfactory for evaluation. Transformation zone component present. GENERAL CATEGORIZATION: ?Negative fo r Intraepithelial Lesion or Malignancy DESCRIPTIVE DIAGNOSIS: ? Negative fo r Intraepithelial Lesion or Malignancy. ?HPV DNA RESULTS ?? 09/05/14 0948 HPV DNA RESULT ??NEG ? Negative for HP V types 16, 18, 31, 33, 35, 39, 45, 51, 52, ? 56, 58, 59, 66, 68. ? Method: Cervist a HPV HR (High Risk) DNA test. ORDER QUERIES: LMP: 08/15/14- ?Preg nant? ?? Post ?PREVIOUS ATYPICAL: Y BCP/HRT? ?? Rad Rx? ?? IUD?PAP PL US HPV? Y ??REFLEX TO HR-HPV IF ASCUS Y REFLEX TO HPV 16/18 IF HPV POS/PAP NEG Y HPV REGARDLESS? Y ??RFLX HPV IF LSIL ?? Signed Melly Montejo CT(ASCP) 09/12/14 By the signature above, the attending ph ysician certifies that he/she has personally conducted a gross and/or microscopic exa mination of the described specimens and rendered or confirmed the above diagnosi s. Test Performed by [facility], [address] [place] [address] Assembler Faucets: Priya Sanders MD PHD Performing Organization Address City/State/ZIP Code Phon e Number [facility] [address] [place] [address] LAB documented in this encounter Visit Diagnoses Not on filedocumented in this encounter Care Teams Accounting Manager Assistant Controller Relationship Specialty Start Date End Date Unknown, Evert, PCP - General 10/01/13 06/22/16 Rae Diaz PA PCP - General 06/23/16 [address] [place] [address] documented as of this encounter
--- OUTSIDE RECORDS SUMMARY | 2021-11-09 00:47 | XMS_ITS | Encounter Summary ---
:1975 Author Organization [facility] Address [address] [place] [address] Care Team Providers Name Role Phone HORTENSIA Diaz Primary Care Provider Encounter Details Date Type Department Care Team Description 10/13/2017 Hospital Encounter [facility] [address] [facility] [address] [place] [address] [address] [place] [address] (Wo rk) Social History Tobacco Use Types [...] making decisions? documented as of this encounter Discharge Diagnoses Diagnosis Z11.3 Encounter for screening for infect ions with a predominantly sexual mode of transmission-Z11.3[ICD-10-CM] Z11.8 Encounter for screening for other infectious and parasitic diseases-Z11.8[ICD-10-CM] N76.0 Acute vaginitis-N76.0[ICD-10-CM] documented in this encounter Discharge Disposition Disposition Code Departure Means Destination Home or Self Care documented in this encounter Plan of Treatment Upcoming Encounters Date Type Specialty Care Team Description 11/11/2021 Office Visit Rheumatology Frederic Dyer, ENGINEERING AIDE [facility] [address] [place] [address] 12/25/2021 Appointment Radiology documented as of this encounter Visit Diagnoses Not on filedocumented in this encounter Care Teams Weaving Instructor Relationship Specialty Start Date End Date Rae Diaz PA PCP - General 06/23/[address] [place] [address] documented as of this encounter
--- OUTSIDE RECORDS SUMMARY | 2021-11-09 00:47 | XMS_ITS | Encounter Summary ---
:1975 Author Organization [facility] Address [address] [place] [address] Care Team Providers Name Role Phone Unknown, Primary Care Provider HORTENSIA Diaz Primary Care Provider Encounter Details Date Type Department Care Team Description 11/25/2010 Historical Results Only [facility] - Izabela Chopra, [facility] - Main [facility] CN [address] [facility] [address] [place] [address] [place], [place] [phone] Social History Tobacco Use Types Packs/Day Years Used Date Never Assessed Sex Assigned at Date Recorded Not on file documented as of this encounter Plan of Treatment Upcoming Encounters Date Type Specialty Care Team Description 11/11/2021 Office Visit Rheumatology Frederic Dyer , PRODUCT TESTER [address] [facility] [address] [place] [address] 12/25/2021 Appointment Radiology documented as of this encounter Procedures Procedure Name Priority Date/Time Associated Diagnosis Comme nts PAP TEST Routine 11/25/2010 Results for thi s procedure are in the resu lts section. documented in this encounter Results PAP TEST (11/25/2010) Specimen Narrative [facility] - 011 16:20 EDT Name: NORA MATA ? : [birth year] ?Age/Sex: 44/F ?Unit#: [id number] ? Loc: [facility] ? Status: REG REF ?? Reg Date: 11/27/10 ? Pt.Phone Number : ? Specimen: [id number] ?STA TUS: SOUT ?Spec Date:11/25/10 ? Physician Copies: ?Izabela Chopra ? Tissues: ? Cervical/Endo Pap ?Alton Bentley MD ?? CPT: 65618 ?? Units: ??1 ? CYTOLOGY DIAGNOSIS SPECIMEN ADEQUACY: ?Satisfactory for evaluation. Transformation zone component ABSENT. GENERAL CATEGORIZATION: ?Negative fo r Intraepithelial Lesion or Malignancy DESCRIPTIVE DIAGNOSIS: ? Negative fo r Intraepithelial Lesion or Malignancy. RECOMMENDATIONS/COMMENTS: ?None. ORDER QUERIES: LMP: ? - [id number] ? Preg nant? N Post ? N ??PREVIOUS ATYPICAL: Y BCP/HRT? ?? Rad Rx? N IUD?PAP PLU S HPV?REFLEX TO HR-HPV IF ASCUS ?? REFLEX TO HPV 16/18 IF HPV POS/PAP NEG ?? HPV REGARDLESS?RFLX HPV IF LSIL ?? IF ASCUS DO HPV? Y ?[facility] Information ? [facility] ?? Patients Phone# ??[phone] ?? [facility] Order# ? Signed Rachael Avila CT(ASCP) 12/02/10 ? By the signature above, the attending ph ysician certifies that he/she has personally conducted a gross and/or microscopic exa mination of the described specimens and rendered or confirmed the above diagnosi s. Test Performed by [facility], [address] [address] Manager Play: Priya Sanders MD PHD Performing Organization Address City/State/ZIP Code Phon e Number [facility] [address] [place], [place] [phone] [place] [address] LAB documented in this encounter Visit Diagnoses Not on filedocumented in this encounter Care Teams Spray Gunner Relationship Specialty Start Date End Date Unknown, Provider, PCP - General 10/01/13 06/22/16 Rae Diaz PA PCP - General 06/23/16 [address] [place] [address] documented as of this encounter
--- OUTSIDE RECORDS SUMMARY | 2021-11-09 00:47 | XMS_ITS | Encounter Summary ---
:1975 Author Organization [facility] Address [address] [place] [address] Care Team Providers Name Role Phone Unknown, Primary Care Provider HORTENSIA Diaz Primary Care Provider Encounter Details Date Type Department Care Team Description 11/19/2009 Historical Results Only [facility] - Izabela Chopar, [facility] [place] [facility] CN [address] [facility] [address] [place] [address] [place], [place] [phone] Social History Tobacco Use Types Packs/Day Years Used Date Never Assessed Sex Assigned at Date Recorded Not on file documented as of this encounter Plan of Treatment Upcoming Encounters Date Type Specialty Care Team Description 11/11/2021 Office Visit Rheumatology Frederic Dyer , CHIEF REVENUE OFFICER [address] [facility] [address] [place] [address] 12/25/2021 Appointment Radiology documented as of this encounter Procedures Procedure Name Priority Date/Time Associated Diagnosis Comme nts PAP TEST Routine 11/19/2009 Results for thi s procedure are in the resu lts section. documented in this encounter Results PAP TEST (11/19/2009) Specimen Narrative [facility] - 010 13:54 EDT Name: NORA MATA ? : [birth year] ?Age/Sex: 44/F ?Unit#: [id number] ? Loc: LAB.[facility] ? Status: REG REF ?? Reg Date: 11/19/09 ? Pt.Phone Number : ? Specimen: [id number] ?STA TUS: SOUT ?Spec Date:11/19/09 ? Physician Copies: ?Izabela Chopra ? Tissues: ? Cervical/Endo Pap ? CPT: 08707 ?? Units: ??1 ? CYTOLOGY DIAGNOSIS SPECIMEN ADEQUACY: ?Satisfactory for evaluation. Transformation zone component present. GENERAL CATEGORIZATION: ?Epithelial Cell Abnormality. DESCRIPTIVE DIAGNOSIS: ??Squamous cell A bnormality - ??Atypical squamous cells - undetermined significance. RECOMMENDATIONS/COMMENTS: ??Recommend shannen grarison the 2006 Consensus Guidelines for the Management of ??Women with Cervical Cyto logic Abnormalities. ?? Management algorithms have been distributed and are also available online at www.ASCCP.org/consensus.shtml. Rare ASC-US. ?HPV DNA RESULTS ?? 11/19/09 1037 HPV DNA RESULT ??NEG ? Negative for HP V types 16, 18, 31, 33, 35, 39, 45, 51, 52, ? 56, 58, 59, 66, 68. ? Method: Cervist a HPV HR (High Risk) DNA test. ORDER QUERIES: LMP: 11/12/09- ?Preg nant? N Post ? N ??PREVIOUS ATYPICAL: Y BCP/HRT? N Rad Rx? N IUD?PAP PLUS HPV? N ??REFLEX TO HR-HPV IF ASCUS ?? REFLEX TO HPV 16/18 IF HPV POS/PAP NEG ?? HPV REGARDLESS?RFLX HPV IF LSIL ?? IF ASCUS DO HPV? Y ?[facility] Information ? [facility] ?? Patients Phone# ??[phone] ?? [facility] Order# ? Signed ____(signature on file)____ Geronimo Shahid M.D. 12/01/09 ?? By the signature above, the attending ph ysician certifies that he/she has personally conducted a gross and/or microscopic exa mination of the described specimens and rendered or confirmed the above mooi s. Test Performed by [facility], [address] [address] Machine Operator Picker: Priya Sanders MD PHD Performing Organization Address City/State/ZIP Code Phon e Number [facility] [phone] [place] [address] LAB documented in this encounter Visit Diagnoses Not on filedocumented in this encounter Care Teams Hammer Runner Relationship Specialty Start Date End Date Unknown, Provider, PCP - General 10/01/13 06/22/16 Rae Diaz PA PCP - General 06/23/[address] [place] [address] documented as of this encounter
--- OUTSIDE RECORDS SUMMARY | 2021-11-09 00:47 | XMS_ITS | Encounter Summary ---
:1975 Author Organization [facility] Address [address] [place] [address] Care Team Providers Name Role Phone HORTENSIA Diaz Primary Care Provider Reason for Visit Reason Comments Eye Pain Continuing episodes of Left eye pain. Consult (Routine) - Authorization Not Required Specialty Diagnoses / Procedures Referred By Contact Refer red To Contact Ophthalmology Diagnoses Eye pain, left Rae Diaz PA [facility] [address] [facility] [address] [place] [address] [address] [place] [address] Phone: Fax: Referral ID Status Reason Start Expiration Visits Visits Date Date Requested Authorized [id number] Authorization Not 1 1 Required Encounter Details Date Type Department Care Team Description 06/23/2016 Office Visit [facility] Ammy Guzman, Ophthalmology - [place] in [address] [facility] [address] [facility] [address] [place] [address] [place] [address] [phone] Social History Tobacco Use Types Packs/Day Years [...] documented as of this encounter Progress Notes Ammy Guzman MD - 06/23/2016 0876 EST Chief Complaint Patient presents with ??? Eye Pain Continuing episodes of Left eye pain. HPI The patient is a 40 y.o. female here for eval of eye pain, happening more frequently over the past year but has been happening for a couple of years. Was pretty good for a number of years after the initial abrasion. Had episodes 4 mornings last week. In the past happened under different conditions, now seems to bother more in the morning. Uses lubricating drops when symptomatic, sometimes will put one in if she wakes up in the middle of the night and feels uncomfortable. Right Eye: NL Left Eye: Pain/Soreness, Tearing, Burning Visual Aid: None Current Rx Age Location: Left eye Pain: 0 - No pain Quality: Burning, Sharp Severity: Mild Duration: Years Timing: Infrequently Lasts: Hours Context: Pt complains of left eye burning, stinging intermittently over the past several years. Worsening over past year, mostly happens in the morning when waking up Modifying factors: h/o corneal abrasion 11 years ago (pt thinks it was left eye) and had a procedure to fix that (Dr Hammer) Associated Signs & Symptoms: Attestation: ROS Constitutional: NL ENT/Mouth NL Cardiovascular: NL Respiratory: NL Gastrointestinal: NL Genitourinary: NL Musculoskeletal: NL Integumentary: NL Neurologic: NL Psychiatric: NL Endocrine: NL Hematologic: NL Immunologic: NL Ui Engineer: Exposures: None Other: Attestation: Base Eye Exam Visual Acuity (Snellen - Linear) Right Left Dist sc 20/20 -2 20/20 Tonometry (Applanation, 8:33) Right Left Pressure 10 10 Pupils Pupils Dark Light APD Right PERRL 4 3 None Left PERRL 4.5 3.5 None Neuro/Psych Oriented x3: Yes Mood/Affect: Normal Slit Lamp and Fundus Exam External Exam Right Left External Normal Normal Slit Lamp Exam Right Left Lids/Lashes Normal Normal Conjunctiva/Sclera White and quiet White and quiet Cornea Clear Discrete small spot of negative staining just inferonasal to visual axis, no epithelial defect Anterior Chamber Deep and quiet Deep and quiet Iris Round and reactive Round and reactive Lens Clear Clear DIAGNOSTIC TESTS: IMPRESSION & PLAN: Encounter Diagnoses Name Primary? Recurrent corneal erosion, left- longstanding and intermittent recurrence based on patient's description. 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 - increase regular lubrication- josue qhs - regular use of art tears bid-qid - f/u prn I have reviewed the patient's past medical, family, social and surgical history. I have also reviewed the patient's medications, allergies, and problem list. I performed my own HPI and have reviewed the tech's ROS as well. I completed this exam personally. Ammy Guzman MD I am scribing for Ammy Guzman MD, while she is personally performing the service. DANIELLA Olivia Patient Education Topic: Recurrent corneal erosions Method: Verbal Taught to: Patient Barriers: None Outcomes: independent and verbalized understanding Signature: Ammy Guzman MD documented in this encounter Plan of Treatment Upcoming Encounters Date Type Specialty Care Team Description 11/11/2021 Office Visit Rheumatology Frederic Dyer , 5TH GRADE TEACHER [address] [facility] [address] [place] [address] 12/25/2021 Appointment Radiology documented as of this encounter Visit Diagnoses Diagnosis Recurrent corneal erosion, left - Primar y documented in this encounter Eye Exam Visual Acuity (Snellen - Linear) Right eye Left eye Dist sc 20/20 -2 20/20 Tonometry (Applanation, 8:33) Right eye Left eye Pressure 10 10 Pupils Pupils Dark Light APD Right eye PERRL 4 3 None Left eye PERRL 4.5 3.5 None Neuro/Psych Oriented x3: Yes Mood/Affect: Normal External Exam Right eye Left eye External Normal Normal Slit Lamp Exam Right eye Left eye Lids/Lashes Normal Normal Conjunctiva/Sclera White and quiet White and quiet Cornea Clear Discrete small spot of negative staining just inferonasal to visua l axis, no epithelial defect Anterior Chamber Deep and quiet Deep and quiet Iris Round and reactive Round and reactive Lens Clear Clear Care Teams Mining Speculator Relationship Specialty Start Date End Date Rae Daiz PA PCP - General 06/23/[address] [place] [address] documented as of this encounter
--- OUTSIDE RECORDS SUMMARY | 2021-11-09 00:47 | XMS_ITS | Encounter Summary ---
:1975 Author Organization Health system Address [address] [place] [address] Care Team Providers Name Role Phone Unavailable Primary Care Provider Unavailable Encounter Details Date Type Department Care Team Description 09/04/2013 Hospital Encounter [facility] - Unknown, Maame perkins [facility] [phone] [address] [facility] (Work) [place] [address] Social History Tobacco Use Types Packs/Day Years Used Date Never Assessed Sex Assigned at Date Recorded Not on file documented as of this encounter Discharge Disposition Disposition Code Departure Means Destination Home or Self Senior Living documented in this encounter Plan of Treatment Upcoming Encounters Date Type Specialty Care Team Description 11/11/2021 Office Visit Rheumatology Frederic Dyer, AUTO DAMAGE APPRAISER [address] [facility] [address] [place] [address] 12/25/2021 Appointment Radiology documented as of this encounter Visit Diagnoses Not on filedocumented in this encounter
--- OUTSIDE RECORDS SUMMARY | 2021-11-09 00:47 | XMS_ITS | Encounter Summary ---
:1975 Author Organization [facility] Address [address] [place] [address] Care Team Providers Name Role Phone Unknown, Primary Care Provider HORTENSIA Diaz Primary Care Provider Encounter Details Date Type Department Care Team Description 10/02/2013 Historical Results [facility] - Elena Trinidad, Only [facility] - Main [facility] [address] [place] [address] [address], [address] [place] [address] Social History Tobacco Use Types Packs/Day Years Used Date Never Assessed Sex Assigned at Date Recorded Not on file documented as of this encounter Plan of Treatment Upcoming Encounters Date Type Specialty Care Team Description 11/11/2021 Office Visit Rheumatology Frederic Dyer, BRIM CUTTER 130 [facility] [address] [place] [address] 12/25/2021 Appointment Radiology documented as of this encounter Procedures Procedure Name Priority Date/Time Associated Diagnosis Comme nts SURGICAL PATHOLOGY Routine 10/02/2013 Results f or this procedure are i n the results section . documented in this encounter Results SURGICAL PATHOLOGY (10/02/2013) Specimen Narrative [facility] - 014 15:49 EDT Name: NORA BOOGIE ?: [birth year] ?Age/Sex: 44/F ?Unit#: [id number] ? Loc: AGO ? Status: REG POV ?? Reg Date: 10/02/13 ? Pt.Phone Number : ? Specimen: [id number] ? STA TUS: SOUT ?Spec Date:10/02/13 ? Physician Copies: ?Elena Trinidad MD ?? Tissues: A ?? Female Reproductive System (CERVIX) ?Alton Bentley MD ?? CPT: 66219 ?? Units: ??1 ?FINAL DIAGNOSIS ? Cervix, biopsy; ? 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 ?COMMENT ? The biopsy shows PATRICK II at the transfor mation zone characterized by dysmaturation with mitotic figures in t he mid and upper half of the epithelium. The referring Pap has atypical metaplas tic cells that correlate with the biopsy findings ([id number]). ? GROSS DESCRIPTION ? Received in formalin labeled with the patient's name is a wedge shaped piece of ? oakley-cardozo mucosa measuring 0.6 x 0 .3 x 0.2 cm, e.s. 1. ??CP ?? PREOP DX/CLINICAL HISTORY ?ASCUS PAP Signed ____(signature on file)____ Priya Landa M.D. 10/03/13 By the signature above, the attending ph ysician certifies that he/she has personally conducted a gross and/or microscopic exa mination of the described specimens and rendered or confirmed the above diagnosi s. Test Performed by [facility], [address] [place] [address] Waterside Worker: Priya Sanders MD PHD Performing Organization Address City/State/ZIP Code Phon e Number [facility] [address] [place], [place] [id number] [place] [address] LAB documented in this encounter Visit Diagnoses Not on filedocumented in this encounter Care Teams Social Media Director Relationship Specialty Start Date End Date Unknown, Provider, PCP - General 10/01/13 06/22/16 Rae Diaz PA PCP - General 06/23/16 [address] [place] [address] documented as of this encounter
--- OUTSIDE RECORDS SUMMARY | 2021-11-09 00:47 | XMS_ITS | Encounter Summary ---
:1975 Author Organization [facility] Address [address] [place] [address] Care Team Providers Name Role Phone HORTENSIA Diaz Primary Care Provider Encounter Details Date Type Department Care Team Description 06/23/2016 Historical Results Only [facility] - Unknown, [facility] Lab - Main [facility] Provider, MD Iona Burrell [phone] [place] [address] (Work) [phone] Social History Tobacco Use Types Packs/Day Years [...] Description 11/11/2021 Office Visit Rheumatology Frederic Dyer, FUNERAL COUNSELOR [address] [facility] [address] [place] [address] 12/25/2021 Appointment Radiology documented as of this encounter Procedures Procedure Name Priority Date/Time Associated Comments Diagnosis QUANTIFERON TB GOLD Routine 06/23/2016 9:53 Resu lts for this PLUS EST procedure are i n the results section. documented in this encounter Results QUANTIFERON TB GOLD PLUS (06/23/2016 9:53 EST) Quantiferon Negative NEGAT [facility] Interpretation Comment: [facility] Reference Range: Negative Resuls were obtained with the Cellestis QuantiFERON-T B Gold ALEXIS. Test Performed by: THE [address] [address] Agricultural Equipment Operator: Rogerio Bruce MD , Ph D M.TUBERCULOSIS 0.00 () IU/mL [facility] ANTIGEN - [facility] Comment: [facility] This is a qualitative test. ??The TB antigen IU/mL emeli ue is required for documentation on certain government reporting for ms (e.g., Form I-693), but the magnitude of this value cannot be cor related to stage or degree of infection, level of immune responsivenes s, or likelihood for progression to active disease. Diagnosing or excluding tuberculosis disease, and asse ssing the probability of LTBI, requires a combination of epidem iological, historical, medical, and diagnostic findings that grace uld be taken into account when interpreting QuantiFERON-TB results . Specimen Narrative [facility] - 016 16:33 EST Does PT Have a Latex Allergy? NO Performing Organization Address City/State/ZIP Code Phon e Number [facility] [address] [place] [address] [facility] documented in this encounter Visit Diagnoses Not on filedocumented in this encounter Care Teams Manager Eligibility Relationship Specialty Start Date End Date Rae Diaz PA PCP - General 06/23/16 [address] [place] [address] documented as of this encounter
--- OUTSIDE RECORDS SUMMARY | 2021-11-09 00:47 | XMS_ITS | Encounter Summary ---
:1975 Author Organization [facility] Address [address] [place] [address] Care Team Providers Name Role Phone HORTENSIA Diaz Primary Care Provider Encounter Details Date Type Department Care Team Description 10/13/2017 Results Only [facility] Kassie Pollock, Women's Services - [facility] [address] [facility] [address] [facility] [address] [place] [address] [place] [address] [phone] (Wo rk) Social History Tobacco Use Types [...] 11/11/2021 Office Visit Rheumatology Frederic Dyer, HAND BINDER CUTTER [address] [facility] [address] [place] [address] 12/25/2021 Appointment Radiology documented as of this encounter Procedures Procedure Name Priority Date/Time Associated Comments Diagnosis CHLAMYDIA/N. Routine 10/13/2017 16:18 Results for this GONORRHOEAE AMPLIFIED EDT proced ure are in RNA the results section. ZZVAGINITIS EXAM Routine 10/13/2017 16:13 Results for this EDT procedure are i n the results section. documented in this encounter Results CHLAMYDIA/N. GONORRHOEAE AMPLIFIED RNA (10/13/2017 16:18 EDT) Pathologist Sig nature Chlamydia Result Negative [facility] GC Result Negative [facility] Specimen Cervix/Endocervix Performing Organization Address City/[facility]/ZIP Code Phon e Number [facility] [address] [place] [address] SERVICES VAGINITIS EXAM (10/13/2017 16:13 EDT) Gram Smear Result No yeast seen. [facility] Gram Smear Result Smear consistent [facility] with BACTERIAL LABORATORY VAGINOSIS. SERVICES Result No Trichomonas [facility] antigen detected. LABORATORY SERVICES Specimen Vagina Performing Organization Address City/[facility]/ZIP Code Phon e Number [facility] [address] [place] [address] SERVICES documented in this encounter Visit Diagnoses Not on filedocumented in this encounter Care Teams Location And Measurement Technician Relationship Specialty Start Date End Date Rae Diaz PA PCP - General 06/23/16 [address] [place] [address] documented as of this encounter
--- OUTSIDE RECORDS SUMMARY | 2021-11-09 00:47 | XMS_ITS | Encounter Summary ---
:1975 Author Organization [facility] Address [address] [place] [address] Care Team Providers Name Role Phone Candelaria, Primary Care Provider HORTENSIA Diaz Primary Care Provider Encounter Details Date Type Department Care Team Description 07/15/2009 Historical Results Only [facility] - Alton Alas MD [facility] - Main [facility] [address] [facility] [address] [place], [place] [phone] Social History Tobacco Use Types Packs/Day Years Used Date Never Assessed Sex Assigned at Date Recorded Not on file documented as of this encounter Plan of Treatment Upcoming Encounters Date Type Specialty Care Team Description 11/11/2021 Office Visit Rheumatology Frederic Dyer, ELASTIC ATTACHER CHAINSTITCH [address] [facility] [address] [place] [address] 12/25/2021 Appointment Radiology documented as of this encounter Procedures Procedure Name Priority Date/Time Associated Diagnosis Comme nts PAP TEST Routine 07/15/2009 Results for thi s procedure are in the resu lts section. documented in this encounter Results PAP TEST (07/15/2009) Specimen Narrative [facility] - 07/18/2009 10 :34 EST Name: NORA MATA ? : [birth year] ?Age/Sex: 44/F ?Unit#: [id number] ? Loc: LAB.OPX ? Status: REG REF ?? Reg Date: 07/15/09 ? Pt.Phone Number : ? Specimen: [id number] ?ST ATUS: SOUT ?Spec Date:07/15/09 ? Physician Copies: ?Alton Bentley MD ?? Tissues: ? Cervical/Endo Pap ? CPT: 06095 ?? Units: ??1 ? CYTOLOGY DIAGNOSIS SPECIMEN ADEQUACY: ?Satisfactory for evaluation. Transformation zone component present. GENERAL CATEGORIZATION: ?Negative fo r Intraepithelial Lesion or Malignancy DESCRIPTIVE DIAGNOSIS: ? Negative fo r Intraepithelial Lesion or Malignancy. RECOMMENDATIONS/COMMENTS: ?None. ORDER QUERIES: LMP: 06/24/09- ?Preg nant? N Post ? N ??PREVIOUS ATYPICAL: ?? BCP/HRT? ?? Rad Rx? ?? IUD? Y ??PAP PLU S HPV?REFLEX TO HR-HPV IF ASCUS ?? REFLEX TO HPV 16/18 IF HPV POS/PAP NEG ?? HPV REGARDLESS?RFLX HPV IF LSIL ?? IF ASCUS DO HPV? Y Signed Rachael Avila CT(ASCP) 07/18/09 ? By the signature above, the attending ph ysician certifies that he/she has personally conducted a gross and/or microscopic exa mination of the described specimens and rendered or confirmed the above diagnosi s. Test Performed by [facility], [address] [place] [address] Irrigation District Manager: Priya Sanders MD PHD Performing Organization Address City/State/[facility] Code Phon e Number [facility] [address] [place] [address] [facility] documented in this encounter Visit Diagnoses Not on filedocumented in this encounter Care Teams Market Investigator Relationship Specialty Start Date End Date Unknown, Provider, PCP - General 10/01/13 06/22/16 Rae Diaz PA PCP - General 06/23/16 [address] [place] [address] documented as of this encounter
--- OUTSIDE RECORDS SUMMARY | 2021-11-09 00:47 | XMS_ITS | Encounter Summary ---
:1975 Author Organization [facility] Address [address] [place] [address] Care Team Providers Name Role Phone HORTENSIA Diaz Primary Care Provider Encounter Details Date Type Department Care Team Description 10/04/2018 Historical Results Only [facility] - Rachael Diaz, [facility] - Main [facility] [address] [place] [address] [place], [place] [phone] Social History Tobacco Use Types Packs/Day Years [...] Description 11/11/2021 Office Visit Rheumatology Frederic Dyer, SPECIALIZED DEVELOPER [address] [facility] [address] [place] [address] 12/25/2021 Appointment Radiology documented as of this encounter Procedures Procedure Name Priority Date/Time Associated Comments Diagnosis COMPREHENSIVE Routine 10/04/2018 13:51 Results fo r this METABOLIC POC - CV EDT proce dure are in the results section. documented in this encounter Results COMPREHENSIVE METABOLIC POC - [facility] (10/04/2018 13:51 EDT) Pathologist Sig nature ALBUMIN - [facility] 4.6 3.50 - 5.00 G/DL [facility] ALKALINE PHOSPHATASE - 52 38.00 - 126.00 [facility] U/L [place] [facility] BILIRUBIN TOTAL 1.3 0.20 - 1.30 [facility] MG/DL [place] [facility] BUN - [facility] 13 7.00 - 20.00 [facility] MG/DL [place] [facility] CALCIUM - [facility] 9.7 8.50 - 10.50 [facility] MG/DL [place] [facility] Chloride 101 98.00 - 107.00 [facility] MMOL/L [place] [facility] CO2 Total 28 22.00 - 30.00 [facility] MMOL/L [place] [facility] CREATININE 0.7 0.70 - 1.50 [facility] MG/DL [place] [facility] Anion Gap 9 7 - 17 MMOL/L [facility] GLUCOSE - [facility] 91 70.00 - 100.00 [facility] MG/DL [place] [facility] Potassium 4.4 3.50 - 5.10 [facility] MMOL/L [place] [facility] Sodium 138 137.00 - 145.00 [facility] MMOL/L [place] [facility] TOTAL PROTEIN - [facility] 7.4 6.30 - 8.20 G/DL [facility] SGOT/AST - [facility] 31 15.00 - 46.00 [facility] [place] [facility] SGPT/ALT - [facility] 22 13.00 - 69.00 [facility] U/L [place] [facility] Specimen Performing Organization Address City/State/ZIP Code Phon e Number [facility] [address] [place] [address] [facility] documented in this encounter Visit Diagnoses Not on filedocumented in this encounter Care Teams Cloth Classer Relationship Specialty Start Date End Date Rae Diaz PA PCP - General 06/23/16 [address] [place] [address] documented as of this encounter
--- NOTE | 2021-11-09 08:00 | DI.MRI_ITS ---
Exam(s) MR LOWER JOINT LT WO EXAM: MR LOWER JOINT LT WO CLINICAL HISTORY: pain,PRIMARY OA LT KNEE,INTERNAL DERANGEMENT LT KNEE,M23.92,M17.12. TECHNIQUE: Multiplanar multisequence MRI was performed. COMPARISON: CR XR KNEE LT 4V AP,LAT,HILDA,PAT from 10/26/2021 FINDINGS: BONES: There is no fracture or contusion pattern. JOINTS: Focal linear defect medial patellar facet. Tiny defect at patellar apex. Mild cartilage irr egularity over the medial femoral condyle. Moderate-sized joint effusion is present. Small amount of fluid seen near proximal tibial fibular joint. TENDONS: Extensor mechanism: Unremarkable. Medial retinaculum: Unremarkable. Lateral retinaculum: Unremarkable. Popliteus: Unremarkable. MUSCLES: Unremarkable. MENISCI: The medial meniscus in shows intrasubstance signal in the body without evidence of a discret e tear.. The lateral meniscus is unremarkable. SOFT TISSUES: Edema in the anterior subcutaneous fat. LIGAMENTS: Anterior Cruciate: Unremarkable. Posterior Cruciate: Unremarkable. Medial Collateral:Unremarkable. Lateral Collateral: Unremarkable. OTHER: IMPRESSION: Degenerative changes of the medial femoral tibial joint and medial meniscus. No discrete meniscal te ar. No evidence of ligament tear. 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 Moderate-sized joint effusion. DATA REPOSITORY:
== END ==
PROVIDERS: PCP Physician Assistant Medical; Visit Provider Student in an Organized Health Care Education/Training Program
DX: M17.12 Unilateral primary osteoarthritis, left knee (principal); M23.92 Unspecified internal derangement of left knee; M22.42 Chondromalacia patellae, left knee; M25.462 Effusion, left knee
CPT/HCPCS: 73721

== ENCOUNTER 2021-12-08 02:28 | Outpatient (CLI) | payer BC, SELFPAY ==
[2021-12-08 12:20] LABS: Source Nasal/Nares
[2021-12-08 14:37] LABS: COVID-19 PCR Negative (Negative)
== END 2021-12-08 02:29 | disposition home or self-care (01) ==
PROVIDERS: PCP Physician Assistant Medical; Visit Provider Student in an Organized Health Care Education/Training Program
DX: Z20.822 Contact with and (suspected) exposure to COVID-19 (principal); Z01.818 Encounter for other preprocedural examination
CPT/HCPCS: 87635

== ENCOUNTER 2021-12-09 09:55 | Day surgery (SDC) | payer BC, SELFPAY ==
[2021-12-09] VITALS (7 sets, daily range): BP systolic 98–111; BP diastolic 42–78; PULSE 70–76; RESP 15–18; TEMP 36.3–36.5; O2SAT 98–99; BMI 37.8
--- NOTE | 2021-12-09 08:21 | W.ANESPRE ---
General Info Date of Service Date Performed: 12/09/21 Height: 5 ft 4 in Weight: 99.79 kg Body Mass Index (BMI): 37.8 Surgical Procedure: Operation Date: 12/09/21 13:10 Proposed Procedure Side Surgeon p Knee Arthroscopy Partial Medial Menisectomy Left Mc Ann MD Meds Allergies and Home Medications Allergies Allergy/AdvReac Type Severity Reaction Status Date / Time No Known Allergies Allergy Verified 12/04/21 10:31 Home Medication Medication Instructions Recorded levonorgestrel 20 mcg/24 hours (7 1 insert intrauterine ONCE 09/16/21 yrs) 52 mg intrauterine device (Mirena) trazodone 50 mg tablet 50 mg PO QHS 09/16/21 meloxicam 15 mg tablet 15 mg PO DAILY 10/26/21 semaglutide 0.25 mg or 0.5 mg (2 0.25 mg subcut QWEEK 11/26/21 mg/1.5 mL) subcutaneous pen injector (Ozempic) duloxetine 20 mg capsule,delayed 20 mg PO DAILY 12/04/21 release Current Visit Medications: Current Medications Generic Name Dose Route Start Last Admin Trade Name Freq PRN Reason Stop Dose Admin Ringer's Solution 1,000 mls @ 80 mls/hr 12/09/21 06:00 IV 01/07/22 23:59 INFUSION TOÑA Cefazolin Sodium/Dextrose 2 gm in 50 mls @ 100 mls/hr 12/09/21 06:00 Ancef Duplex IVPB 12/09/21 16:00 PREOP TOÑA IV Miscellaneous Supplies 1 each 12/09/21 06:00 Iv Access IV 01/07/22 23:59 DIRECTED TOÑA Sodium Chloride 0 ml 12/09/21 06:00 Normal Saline Flush 10 Ml Syr IV 01/07/22 23:59 PRN PRN Sodium Chloride 0 ml 12/09/21 06:00 Normal Saline 10 Ml Vial IJ 01/07/22 23:59 DIRECTED PRN Sterile Water 0 ml 12/09/21 06:00 Water,Injection,Sterile 10 Ml Vial IJ 01/07/22 23:59 DIRECTED PRN PFSH Active Problems Active Problems: Problem Status Onset Code Acute medial meniscus tear of left knee S83.242A Primary osteoarthritis of left knee M17.12 Internal derangement of left knee M23.92 Menorrhagia N92.0 Eczema L30.9 Anxiety and depression F41.9, F32.A Vitamin D deficiency E55.9 Seasonal affective disorder F33.8 ADHD F90.9 Polyphagia R63.2 Elevated liver enzymes R74.8 Hypercholesterolemia E78.00 Tobacco Smoking/Tobacco Use Status: Never Alcohol Alcohol Intake: current Alcohol intake frequency: a few times a month Substance Use Substance use: Never Substance use type: does not use Vital Signs and Lab Results Lab Results Blood Type / Crossmatch: No Data to Display Complete Blood Count: No Data to Display Complete Metabolic Panel: No Data to Display Liver Function Panel: No Data to Display Coagulation Panel: No Data to Display Cardiac Panel: No Data to Display Arterial Blood Gas: No Data to Display Venous Blood Gas: No Data to Display Pancreas Panel: No Data to Display Thyroid Panel: No Data to Display Infectious Disease: Coronavirus (COVID-19)(PCR) Negative (Negative) 12/08/21 11:25 Coronavirus 2019 Source Nasal/Nares 12/08/21 11:25 Blood Cultures: No Data to Display Toxicology Panel: No Data to Display Panel: No Data to Display Anesthesia Assessment and Plan Anesthesia History Personal History: No History of Anesthesia Complications Family History: No Family History of Anesthesia Complications Exercise Tolerance Exercise Tolerance: Metabolic Equivalents>4 Pertinent Negatives Pertinent Negatives: No Symptoms of GERD, No Major Cardiovascular Symptoms or Complaints, No Major Pulmonary Symptoms or Complaints and No History of CVA/TIA Cardiac & Pulmonary Exam Cardiac Exam: Normal S1/S2 Heart Sounds Pulmonary Exam: Clear Bilateral Breath Sounds Implantable Cardiac Device Does patient have a Pacemaker or an ICD?: No Airway Exam Known Difficult Airway: No Mallampati Class: 1 Mouth Opening: Normal (> 3cm) Thyromental Distance: Greater than 3 cm Neck Range of Motion: Full ROM Neck Circumference: Normal Teeth Condition: Normal Dentition ASA Classification ASA Score: ASA 2 Emergency Case?: No NPO Status NPO Status: NPO Clears >2 hours, Solids >8 hours Status Status: Negative HCG Anesthesia Plan Resuscitation Status: Full Code Anesthesia Technique: General Anesthesia Airway Planned: LMA Monitors Used: Standard Monitors
[2021-12-09] MEDS: Lactated Ringers 1,000 ML 80 ML IV (10:26)
--- NOTE | 2021-12-09 11:46 | PDOC.DSDIS_ITS ---
Discharge Plan Disposition Patient Disposition: HOME Condition: Good Discharge Details Reason For Visit: L Knee arthroscopy Attending Provider: Mc Ann Primary Care Provider: Rae Diaz Home Meds and New Rx's Prescriptions: New acetaminophen 500 mg tablet 1,000 mg PO TID Qty: 90 0RF hydrocodone-acetaminophen 5-325 mg tablet 1 tab PO Q6H PRN (Reason: pain) Qty: 6 0RF ibuprofen 600 mg tablet 600 mg PO TID PRN (Reason: pain) Qty: 90 0RF Continued Ozempic 0.25 mg or 0.5 mg(2 mg/1.5 mL) pen injector 0.25 mg subcut QWEEK Rx Instructions: for 4 doses trazodone 50 mg tablet 50 mg PO QHS Mirena 20 mcg/24 hours (7 yrs) 52 mg intrauterine device 1 insert intrauterine ONCE Rx Instructions: as a single dose duloxetine 20 mg Capsule,Delayed Release(Dr/Ec) 20 mg PO DAILY Discontinued meloxicam 15 mg tablet 15 mg PO DAILY Discharge Instructions Stand Alone Forms: [facility] Knee Arthroscopy Referrals: Mc Ann MD [ [facility] STAFF PHYSICIAN] - Equipment/Supplies: Partial Weight Bearing Crutches Activity:: Activity as Tolerated Remove Dressings/Wound Care:: 72 hours Shower/Bathe:: 72 hours Diet:: As Tolerated Discharge Orders Discharge Orders: Discharge Order (Routine); Ordered 12/09/21 Ordered By: Rogerio Mendieta DS: Diagnosis Discharge Diagnosis (1) Acute medial meniscus tear of left knee: Status: Acute
[2021-12-09] MEDS: ceFAZolin 2 GM/50 ML BAG IVPB (12:12)
[2021-12-09] MEDS: Bupivacaine 0.5% Pres-Free 30 ML VIAL (12:40)
--- NOTE | 2021-12-09 14:34 | W.ANESPOSTOP ---
Postoperative Evaluation Date, Time and Location Date Performed: 12/09/21 Time Performed: 14:34 Patient Location: Day Surgery Unit Vital Signs Most Recent Imported Vital Signs: Most Recent Vital Signs Temp Pulse Resp BP Pulse Ox 36.3 C L 70 16 111/62 98 12/09/21 14:03 12/09/21 14:03 12/09/21 14:03 12/09/21 14:03 12/09/21 14:03 Pain Score Most Recent Pain Score: Most Recent Pain Score Pain Level 5 12/09/21 14:03 Assessment Mental Status: Awake (Alert & Oriented to Patient Baseline) Airway and Respiratory Function: Patent airway with normal (patient baseline) respiratory exam Cardiovascular Function: Hemodynamically Stable Hydration Status: Adequately Hydrated Nausea & Vomiting: No Nausea or Vomiting Pain: Pain is tolerable per patient Peripheral Nerve Block: Patient did not receive a nerve block
--- NOTE | 2021-12-09 14:37 | ROE_ITS ---
Date of service: 12/09/21 Time of Service: 12:50 Operative Note Operative Note DATE OF PROCEDURE: 12/09/21 PRE-OP DIAGNOSIS: Left Knee Medial Meniscus Tear, Medial Chondromalacia POST-OP DIAGNOSIS: same PROCEDURE: Left Knee Partial medial menisectomy, medial chondroplasty SURGEON: Mc Ann ANESTHESIA TYPE: General LMA/ETT Refer to Anesthesia Record ESTIMATED BLOOD LOSS: 0 PATHOLOGY: none sent COMPLICATIONS: None Patient was transported to: PACU Patient's condition: stable Indications: I have seen Nora in clinic for symptoms of a meniscus tear. This was confirmed based on MRI and exam findings. Nonoperative measures were exhausted but disability and pain persisted. I discussed knee arthroscopy with meniscal intervention with the patient. I reviewed the risks of the procedure to include, but not limited to, bleeding, infection, pain, stiffness, damage to nerves or vessels, recurrence, blood clot. Despite these risks, the patient elected to proceed. 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 The consent was reviewed with the patient and signed. The history and physical was updated. All questions were answered. Nora was taken back to the operating room. The patient was placed into the supi ne position on the operating room table. All bony prominences were well padded. Prophylactic antibiotics in the form of Cefazolin were administered. The left leg was then prepped with Chloraprep and draped in a standard fashion with stockinette and extremity drape. A timeout to confirm correct identity, side and site, procedure, allergies, anesthesia, and medical concerns was performed. The leg was placed into a pneumatic leg escalante, [id number]. A standard lateral portal was made at the lateral border of the patella tendon in line with the inferior pole of the patella, soft spot. The skin and deep tissue was incised sharply and the blunt trochar was inserted atraumatically. A diagnostic arthroscopy was performed and the findings are listed above. The suprapatellar pouch had no significant inflammatory change. The patellofemoral articulation showed Grade I chondromalacia as well as good tracking. The lateral gutter had no loose bodies and the medial gutter had no loose bodies. The knee was brought into some valgus stress in extension to open the medial compartment. A medial portal was made, localized by a spinal needle. The portal was created with an #11 blade through skin and capsule under direct visualization avoiding any meniscal injury. A probe was then inserted into the medial compartment. The medial compartment was fully inspected. The chondral surface of the tibia showed Grade i chondromalacia and the surface of the femur showed global Grade II and some Grade III changes with a focal area of Grade IV of the anterior- distal medial femur, measuring about 4mm in diamater. The medial meniscus had some tearing at the central portion of the body with some degeneration at this level. Additionally, there was a partial tear with a loose flap at the root but not involving the entirety of the root and not destabilizing the root. After evaluation, the meniscus was debrided down to a stable base using a series of biters and arthroscopic sindhu. It was probed afterwards to confirm that the tear had been removed and the meniscus was stable. Cartilage surfaces were debrided of any flaps, leaving any intact fibers. The notch was then inspected which showed an intact ACL and an intact PCL. The leg was then brought into a figure of 4 position. The lateral compartment was fully inspected with the arthroscope and a probe. The chondral surface of the lateral femur showed no significant chondromalacia. The chondral surface of the lateral tibia showed no significant chondromalacia. The lateral meniscus had no meniscal tear. The arthroscope was brought back into the suprapatellar pouch and the leg was in full extension. The knee was thoroughly irrigated with the arthroscopic fluid on high flow and pressure. Inflow was stopped and excess fluid was removed. The wounds were closed with 4-0 Nylon. They were dressed with Xeroform, 4x4 gauze, ABD pad, Kerlix and an CHARLY wrap. A cryo-cuff was applied. The patient tolerated the procedure well and was returned to the Same Day Surgery area in a stable condition suffering no known complication.
== END 2021-12-09 15:00 | disposition home or self-care (01) ==
PROVIDERS: PCP Physician Assistant Medical; Visit Provider Student in an Organized Health Care Education/Training Program
PROC: (CPT 29870; principal; 2021-12-09 13:00)
DX: M23.232 Derangement of other medial meniscus due to old tear or injury, left knee (principal); M94.262 Chondromalacia, left knee; E55.9 Vitamin D deficiency, unspecified; E78.00 Pure hypercholesterolemia, unspecified; R63.2 Polyphagia
CPT/HCPCS: 29881; 81025; J0690; J1100; J1885; J2405; J3010

== ENCOUNTER 2023-04-14 12:05 | Outpatient (CLI) | payer BC, SELFPAY ==
--- NOTE | 2023-04-14 11:15 | DI.RAD_ITS ---
Exam(s) XR KNEE RT 4V AP,LAT,HILDA,PAT EXAM: XR KNEE RT 4V AP,LAT,HILDA,PAT CLINICAL HISTORY: RIGHT KNEE PAIN. TECHNIQUE: 2D digital imaging was performed. COMPARISON: CR XR KNEE LT 4V AP,LAT,HILDA,PAT from 10/26/2021 FINDINGS: Four views. No evidence of fracture or prominent joint effusion. Bone density normal. There is minimal narrowing of the medial compartment and small marginal osteophytes. Lateral and pat ellofemoral compartments appear unremarkable. No patellar displacement. Bone density normal. No os seous lesions. IMPRESSION: Mild degenerative changes in the medial compartment. DATA REPOSITORY: RADIATION DOSE DELIVERED:
== END 2023-04-14 12:06 | disposition home or self-care (01) ==
LOC: DIORS 12:06
PROVIDERS: PCP Physician Assistant Medical; Visit Provider Physician Assistant
DX: M17.11 Unilateral primary osteoarthritis, right knee (principal)
CPT/HCPCS: 73564

== ENCOUNTER → 2023-05-09 02:17 | Outpatient (CLI) | payer BC, SELFPAY ==
--- NOTE | 2023-05-09 08:00 | DI.MRI_ITS ---
Exam(s) MR LOWER JOINT RT WO EXAM: MR LOWER JOINT RT WO CLINICAL HISTORY: pain,internal derangement rt knee, m23.91. TECHNIQUE: Multiplanar multisequence MRI was performed. COMPARISON: CR XR KNEE RT 4V AP,LAT,HILDA,PAT from 04/14/2023 FINDINGS: BONES: There is no fracture or contusion pattern. Mild spurring at the medial femoral condyle media l tibial plateau. JOINTS: A small joint effusion is present. There are few tiny lobular fluid collections in the post eromedial aspect of the knee around the joint which could represent tiny synovial cysts or ganglia. Articular cartilage: Patellofemoral joint: Articular cartilage shows mild thinning at the medial fac et and small focal defect not extending down to bone.. Medial femoral tibial joint: Cartilage thinning over the medial femoral condyle extending down to rusty ne. Minimal underlying high signal in the subcortical bone. Thinning the cartilage of the medial ti bial plateau. Lateral femoral tibial joint: Articular cartilage is unremarkable. TENDONS: Extensor mechanism: Unremarkable. Medial retinaculum: Unremarkable. Lateral retinaculum: Unremarkable. Popliteus: Unremarkable. MUSCLES: Unremarkable. MENISCI: The medial meniscus shows mild intrasubstance degenerative signal in is mildly peripherally displaced.. The lateral meniscus is unremarkable. SOFT TISSUES: Minimal edema anterior to patella. LIGAMENTS: Anterior Cruciate: Unremarkable. Posterior Cruciate: Unremarkable. Medial Collateral:Unremarkable. Lateral Collateral: Unremarkable. OTHER: IMPRESSION: Degenerative changes of the medial femoral tibial compartment with cartilage thinning and irregularit y and degenerative signal changes of the menisci. Thinning of the cartilage over the medial patellar facet with small focal defect. No ligament or meniscal tear. DATA REPOSITORY:
== END ==
PROVIDERS: PCP Physician Assistant Medical; Visit Provider Student in an Organized Health Care Education/Training Program
DX: M23.231 Derangement of other medial meniscus due to old tear or injury, right knee (principal)
CPT/HCPCS: 73721